=== PATIENT | male | born 1940 | race Caucasian/White ===

== ENCOUNTER → 2019-09-19 09:24 | Outpatient (BNVA) | payer MEDICARE, OTHER, SELFPAY | PROVIDERS: Family Provider Internal Medicine; PCP Internal Medicine; Referring Provider Internal Medicine; Visit Provider Internal Medicine Rheumatology | DX: M05.9 Rheumatoid arthritis with rheumatoid factor, unspecified (principal); Z79.52 Long term (current) use of systemic steroids; Z79.899 Other long term (current) drug therapy; M81.0 Age-related osteoporosis without current pathological fracture | CPT/HCPCS: 99214 ==

== ENCOUNTER 2019-10-12 12:46 | Outpatient (CLI) | payer MEDICARE, OTHER, SELFPAY ==
--- NOTE | 2019-10-12 13:17 | CT_ITS ---
WS: [id number] CT scan of the neck. Additional two-dimensional coronal and sagittal reconstruction was performed. 10/12/2019 Clinical Data: SDF, LOCALIZED SWELLING, MASS AND LUMP, NECK Comparison: None. DLP: 1802.[address] scans at [facility] use at least one of these dose optimization techniques: automat ed exposure control; mA and/or kV adjustment per patient size (includes targeted exams where dose is matched to clinical indication); or iterative reconstruction. Findings: There is a left neck mass which has mixed density. It measures 3.4 x 3.4 x 2.6 cm in AP, doran perior-inferior and transverse dimension respectively. There is calcification in the posterior aspect of this mass. No lymphadenopathy is noted. The salivary glands are unremarkable. There is no prevert ebral soft tissue swelling. The larynx is symmetric. The thyroid gland shows no abnormality. The floo r of the mouth and parapharyngeal spaces are normal. The oral cavity is unremarkable. The lung apices show localized anterior right pleural scarring. There are numerous emphysematous bleb s. The aortic arch shows calcification. There are calcified anterior and pretracheal lymph nodes. No prevertebral soft tissue swelling is noted. There is a compression fracture of the inferior aspect of the C4 vertebral body with loss of 50% of the anterior and central vertebral body height. There is s ubluxation of 0.5 cm of the posterior inferior aspect of the C4 vertebral body. There are compression fractures of the T4 and T5 vertebral bodies with loss of almost 100% of the T5 vertebral body height anteriorly and centrally. There is diffuse osteoporosis of the cervical spine. There is moderate ant erior and posterior osteoarthritic change from C4 through C7. The intraorbital contents, paranasal si nuses, sella turcica, and skull base show no abnormalities. The internal auditory canals and mastoid air cells are unremarkable. CT/CT neck wo con [id number] Impression: 1. 3.4 cm left neck mass which is at the level of the bifurcation of the left c arotid artery and this could represent an aneurysm. 2. Osteoarthritic change of the cervical spine with old compression fractures o f C4, T4 and T5. 3. Emphysematous changes of both lung apices.
== END 2019-10-12 12:47 | disposition home or self-care (01) ==
LOC: RADWPI 12:52
PROVIDERS: Family Provider Internal Medicine; PCP Internal Medicine; Visit Provider Internal Medicine
DX: R22.1 Localized swelling, mass and lump, neck (principal)
CPT/HCPCS: 70490

== ENCOUNTER 2019-10-17 09:40 | Outpatient (CLI) | payer MEDICARE, OTHER, SELFPAY ==
--- NOTE | 2019-10-17 10:15 | USCV_ITS ---
[place]on [place] Age: 79 Gender: M : 1940 Exam Date: 10/17/2019 10:04 Ordering Phys: Meng Wu MD Technologist: Gabby Mills Exam Location: [facility] [place]_ Indication: MASS SEEN LT CCA Risk Factors: Previous Vascular Surgery: Right Brachial BP: / Left Brachial BP: / Right Left Velocity (cm/s) Spectral Plaque Velocity (cm/s) Spectral Plaque Syst/Diast Broadening Syst/Diast Broadening 60.60/ 18.70 Prox CCA 77.20 / 15.40 55.10/ 15.40 Mid CCA 84.90 / 23.20 50.70/ 15.40 Distal CCA 87.10 / 20.90 47.40/ 13.20 Prox ICA / 56.20/ 22.10 Mid ICA 79.40 / 28.70 57.30/ 25.40 Distal ICA 112.50/ 28.70 71.70 ECA 46.30 1.04 ICA/CCA 1.32 Vertebral 40.80/ 13.20 cm/s 51.80/ 16.50 cm/s FINDINGS CT comparision 10/12/19 CONCLUSIONS 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 Increased attenuation on the CT suggests more recent hematoma. Aneurysm measures 2.6 x 3.0cm. This involves the ICA origin without significant stenosis. ECA is patent. Right ICA stenosis <50%. Moderate atheromatous plaque right carotid bulb/ICA. Normal antegrade Doppler flow noted in the right vertebral artery. Normal antegrade Doppler flow noted in the left vertebral artery. Adalberto Camargo MD (Electronically Signed) Final Date: 17 October 2019 10:50 S
== END 2019-10-17 09:41 | disposition home or self-care (01) ==
LOC: RAD 09:45
PROVIDERS: Family Provider Internal Medicine; PCP Internal Medicine; Visit Provider Internal Medicine
DX: R22.1 Localized swelling, mass and lump, neck (principal); I72.0 Aneurysm of carotid artery
CPT/HCPCS: 70547; 93880

== ENCOUNTER 2019-10-17 12:59 | Outpatient (CLI) | payer MEDICARE, OTHER, SELFPAY ==
--- NOTE | 2019-10-17 13:47 | MR_ITS ---
WS: [id number] MRA CAROTID ARTERIES HISTORY: Carotid aneurysm. COMPARISON: Carotid ultrasound 10/17/[address] 10/12/2019. TECHNIQUE: MRA is performed without contrast. MIP and source images are reviewed. Patient refused IV contrast. Lack of IV contrast significantly limits evaluation of the arteries. Bifurcations are intact. There i s very mild narrowing involving the proximal LEFT ICA. There is no extravasation from the lumen. Sue ry is patent. Both bifurcations are patent. The visualized extracranial vertebral arteries are also n ormal caliber. A few additional sequences were performed through the neck. The T2 sequence with fat sat demonstrates a cystic mass with variable density in the region of the LEFT carotid artery at the bifurcation. Thi s corresponds to the aneurysm previously described. Largest area of variable signal measures 2.6 cm. Scarring and biapical pleural thickening at the apices, RIGHT greater than LEFT. Notified Meng Wu MD at 10/17/2019 3:26 PM. MR/MR angio neck wo con [id number] IMPRESSION: 1. Significantly limited evaluation of the carotid arteries as the patient ref used IV contrast. 2. LEFT extracranial ICA is patent. 3. Again noted is the aneurysmal dilatation measuring up to 2.6 cm of the extr acranial LEFT carotid artery.
== END 2019-10-17 13:00 | disposition home or self-care (01) ==
LOC: RADWPI 13:04
PROVIDERS: Family Provider Internal Medicine; PCP Internal Medicine; Visit Provider Internal Medicine
DX: I72.0 Aneurysm of carotid artery (principal)
CPT/HCPCS: 70547

== ENCOUNTER 2019-11-06 08:31 | Outpatient (CLI) | payer MEDICARE, OTHER, SELFPAY ==
[2019-11-06 09:31] LABS: Blood Urea Nitrogen 24 mg/dL (8-23)
== END 2019-11-06 08:32 | disposition home or self-care (01) ==
PROVIDERS: Family Provider Internal Medicine; PCP Internal Medicine; Visit Provider Internal Medicine
DX: I72.0 Aneurysm of carotid artery (principal); I77.89 Other specified disorders of arteries and arterioles; M84.48XA Pathological fracture, other site, initial encounter for fracture
CPT/HCPCS: 36415; 82565; 84520

== ENCOUNTER 2019-11-07 16:47 | Observation (INO) | payer MEDICARE, OTHER, SELFPAY ==
[2019-11-07] MEDS: predniSONE 10 mg Tablet 50 MG PO ×2 (18:08→23:56)
[2019-11-07 18:12] VITALS: BP 125/78; PULSE 71; TEMP 37; O2SAT 93
[2019-11-07 19:44] VITALS: BP 111/74; PULSE 79; RESP 20; TEMP 36.6; O2SAT 93
[2019-11-07 23:54] VITALS: BP 103/67; PULSE 75; RESP 18; TEMP 36.4; O2SAT 95
[2019-11-08 04:00] VITALS: BP 109/71; PULSE 72; RESP 18; TEMP 36.7; O2SAT 100
[2019-11-08] MEDS: diphenhydrAMINE 50 mg Capsule PO (05:50)
[2019-11-08] MEDS: predniSONE 20 mg Tablet 50 MG PO (05:50)
[2019-11-08] MEDS: iodixanol 320 mg/mL 100mL Btl IV (07:00)
--- NOTE | 2019-11-08 07:00 | CT_ITS ---
WS: [id number] CT ANGIOGRAM CAROTID ARTERIES HISTORY: aneurysm, carotids TECHNIQUE: CT angiogram is performed of the carotid arteries. During arterial injection imaging is ob tained from the skull base to the aortic arch in 1.25 mm imaging. Coronal and sagittal reformats are submitted, MIP imaging also reviewed. Additional multiplanar reformats of the carotid arteries are doran bmitted. NASCET criteria utilized. All CT scans at [facility] use at least one of these d ose optimization techniques: automated exposure control; mA and/or kV adjustment per patient size (in cludes targeted exams where dose is matched to clinical indication); or iterative reconstruction. CONTRAST: Visipaque 320; 95 mL IV. Patient was premedicated due to contrast allergy. DLP: 1442.47 mGy.cm COMPARISON: Carotid ultrasound 10/17/2019 and MRI 10/17/2019. Right carotid: Common carotid artery: Tortuous common carotid artery arises normally from the innominate. Internal carotid artery: Calcified plaque at the bifurcation without significant stenosis. Plaque ext ends into the proximal ICA. External carotid artery: Patent. Left carotid: Common carotid artery: Common carotid artery arises from the base of the innominate. Scattered calcif ied plaque in the common carotid artery throughout its course to the bifurcation. Internal carotid artery: Abnormal appearance of the bifurcation of the common carotid artery. There i s a large soft tissue mass which contains arterial blood flow originating from the carotid bifurcatio n. The entire mass measures 3.1 cm in diameter by 2.8 x 3.6 cm. There is a large amount of luminal th rombus surrounding intensely enhancing center. Thrombus diameter measures up to 1.2 cm. The enhancing portion of the central aneurysm measures 2.3 x 1.6 x 2.0 cm. The LEFT ICA extends along the posterio r wall of this pseudoaneurysm and is patent. There is moderate narrowing of the proximal ICA approxim ately 50%. A patent external carotid artery not identified. External carotid artery: Not visualized. Right vertebral artery: Unremarkable. Left vertebral artery: LEFT vertebral artery arises directly from the arch with small amount of calci fied plaque at the origin. Subclavian arteries: Calcified plaque at the origins. No significant stenosis. Upper thorax: Severe centrilobular emphysema at the apex. There is a pleural obtuse angle area of thi ckening at the RIGHT apex measures 2.7 x 1.2 cm. No change since 10/12/2019. Thyroid gland: Very tiny RIGHT thyroid nodules. Osseous structures: Severe degenerative changes in the cervical spine most significant at C4-5. There is loss of disc space height with anterior wedging of C4. C4 retrolisthesis by 3.3 mm. Mild widening of the facet joints at the C4-5 level. An additional T4 and T5 vertebral body abnormalities. T5 em re vertebral plana. These changes are probably all related to old injury. Skull base: Mild atherosclerosis of the intracranial carotid arteries. The LEFT internal jugular vein is dilated with variable density. Jugular vein is being displaced late rally to the large pseudoaneurysm. There may be thrombosis or partial thrombus in the jugular vein. T he variable density could also be discussed secondary to slow flow. CT/CT angio neck [id number] IMPRESSION: 1. Large LEFT carotid bifurcation pseudoaneurysm. The entire aneurysm includin g the thrombus and central enhancement measures 3.1 x 2.8 x 3.6 cm. Aneurysm ex tends anterior, lateral and superior to the carotid bifurcation. 2. LEFT external carotid artery is not identified. 3. No significant stenosis RIGHT ICA. 4. LEFT jugular vein is enlarged with variable density and enhancement. May be due to slow flow or partial thrombosis due to the mass effect from the pseudoa neurysm. 5. Prior C4 fracture with posterior displacement of C4 and widening of the fac et joints. This fracture is at the same level as a pseudoaneurysm. Pseudoaneury sm may be posttraumatic from this prior injury. 6. Additional severe, chronic vertebral planar fractures at T5.
[2019-11-08 07:29] VITALS: BP 139/76; PULSE 67; RESP 18; TEMP 36.6; O2SAT 95
[2019-11-08 09:17] VITALS: BP 139/76; PULSE 67; RESP 18; TEMP 36.6; O2SAT 95
== END 2019-11-08 09:51 | disposition home or self-care (01) ==
PROVIDERS: Admitting Provider Internal Medicine; Family Provider Internal Medicine; PCP Internal Medicine; Visit Provider Internal Medicine
DX: I72.0 Aneurysm of carotid artery (principal); Z79.52 Long term (current) use of systemic steroids; M81.0 Age-related osteoporosis without current pathological fracture; M06.9 Rheumatoid arthritis, unspecified; Z87.891 Personal history of nicotine dependence
CPT/HCPCS: 70498; G0378; G0379; J7512; Q0163; Q9967

== ENCOUNTER 2019-11-20 20:05 | Inpatient (IN) | payer MEDICARE, OTHER, SELFPAY ==
[2019-11-16 09:39] VITALS: BMI 20.9
--- NOTE | 2019-11-16 09:57 | ECG_ITS ---
Measurements Intervals Filion Rate: 80 P: 13 VA: 160 QRS: -33 QRSD: 108 T: 10 QT: 371 QTc: 430 SINUS RHYTHM MARKED LEFT AXIS DEVIATION [QRS AXIS < -30] PATTERN CONSISTENT WITH PULMONARY DISEASE MODERATE VOLTAGE CRITERIA FOR LVH, CONSIDER NORMAL VARIANT [MEETS CRITERIA IN ONE OF: R(aVL), S(V1), R(V5), R(V5/V6)+S(V1)] No previous ECG available for comparison Electronically Signed On 11-16-2019 17:24:21 CDT by Omar Amaya M.D. [email or web address]
[2019-11-16 10:16] LABS: Basophils % 0.2 %; Eosinophils # 0.1 10^3/uL (0.0-0.8); Eosinophils % 0.5 %; Hematocrit 41.7 % (42.0-52.0); Hemoglobin 12.9 g/dL (11.7-16.6); Lymphocytes # 1.9 10^3/uL (0.8-4.8); Lymphocytes % 11.2 %; Mean Corpuscular HGB Conc 30.9 g/dL (30.0-36.0); Mean Corpuscular Hemoglobin 30.9 pg (28.0-34.0); Mean Platelet Volume 9.5 fL (7.4-10.4); Monocytes # 1.5 10^3/uL (0.2-0.9); Neutrophils # 11.9 10^3/uL (1.8-7.7); Nucleated Red Blood Cells % 0.1 %; Platelet Count 250 10^3/cmm (130-400); Red Blood Count 4.17 10^6/uL (4.1-5.3); Red Cell Distribution Width 16.1 % (12.1-15.1); White Blood Count 16.5 10^3/uL (4.0-10.0)
[2019-11-16 10:28] LABS: INR 0.85 (0.8-1.2)
--- NOTE | 2019-11-16 10:29 | ANES.PREANE2 ---
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 Proposed Procedure: Operation Date: 11/20/19 11:05 Proposed Procedures p Carotid Endarterectomy(Left) - Familia Greenfield MD Familial anesthetic complications: None Was Beta Jaquelin taken within 24 hours: N/A Social: Social History: No alcohol and No tobacco Exam: Pre-Anes Outpt Exam: alert, oriented x 3, clear to auscultation bilaterally and regular rate & rhythm Airway: Cervical ROM: WNL MP: 4 Dentition: False Additional comments: small mouth opening Pulmonary: Pulmonary: None reported CV/HEM: CV/HEM: None reported : : None reported Hepatic: Hepatic: None reported GI: GI: GERD Metabolic: Metabolic: None reported Musc/skel: Musc/skel: Neuropsych: Neuropsych: None reported Anesthetic Plan: ASA status: 3 Anesthesia: General Risk of > 500 ml blood loss (7ml/kg in children): No PFSH Anesthesia PFSH: Social History Smoking and tobacco status: former smoker Alcohol intake: former History of recent travel: No Data Anesthesia Other Labs: Laboratory Results - last 48 hr 11/16/19 09:30 PT 11.70 INR 0.85 Cardiac Studies: No Data to Display
[2019-11-16 10:31] LABS: Anion Gap 15.8 (5-19); Blood Urea Nitrogen 29 mg/dL (8-23); Calcium 9.7 mg/dL (8.5-10.5); Carbon Dioxide 23 mmol/L (22-29); Chloride 110 mmol/L (98-107); Glucose 94 mg/dL (65-115); Osmolality Calculated 297 mOsm/kg (285-295); Potassium 3.8 mmol/L (3.5-5.1); Sodium 145 mmol/L (136-145)
[2019-11-16 10:56] LABS: Bilirubin Urine Neg (NEGATIVE); Blood Urine 3+ (Negative); Glucose Urine UA Norm (Normal); Ketones Urine Negative (Negative); Nitrate Urine Negative (Negative); Protein Urine Neg (Negative); Urine Appearance Clear (CLEAR); Urine Color Yellow (Yellow)
[2019-11-16 10:57] LABS: Slide Review Slide Review Perform
[2019-11-16 10:57] LABS: Add Urine Culture? No; Add Urine Microscopic? YES; Bacteria Urine 1+; Leukocyte Esterase Urine Negative (Negative); Mucus Urine 2+; Squamous Epithelial Cell Urine 0-4 (0-5); Urobilinogen Urine Norm (Negative)
[2019-11-20] VITALS (17 sets, daily range): BP systolic 103–155; BP diastolic 54–97; PULSE 68–105; RESP 17–25; TEMP 36.3–36.4; O2SAT 92–100
[2019-11-20] MEDS: sodium chloride 0.9% 1,000 ML 30 ML IV (11:43)
[2019-11-20] MEDS: midazolam 1 mg/mL INJ 2 mL 2 MG IVP (12:12)
--- NOTE | 2019-11-20 12:43 | ANES.PREANE2 ---
Pre-Anesthetic Assessment Pre-Anesthetic Assessment: Height/Weight: Height 1.68 m Weight 58.967 kg Temp Pulse Resp BP Pulse Ox 97.5 F L 72 20 H 155/97 98 11/20/19 09:27 11/20/19 09:27 11/20/19 09:27 11/20/19 09:27 11/20/19 09:27 Preop Diagnosis: Left internal carotid artery pseudoaneurysm Proposed Procedure: Operation Date: 11/20/19 11:20 Proposed Procedures p Carotid Endarterectomy(Left) - Familia Greenfield MD Last intake: Intake Last Liquid Date 11/19/19 Last Liquid Time 20:00 Last Solid Date 11/19/19 Last Solid Time 20:00 Social: Packs per day: 1 Pack years: 50+ Comment: '98 Exam: Pre-Anes Outpt Exam: alert, oriented x 3, clear to auscultation bilaterally and regular rate & rhythm Musc/skel: Musc/skel: Lower Back Pain Comments: bilateral radiculopathy Anesthetic Plan: ASA status: 2 Anesthesia: General Meds/Allergies Current Medications: Current Medications Generic Name Dose Route Start Last Admin Trade Name Freq PRN Reason Stop Dose Admin Sodium Chloride 1,000 mls @ 30 ml s/hr 11/20/19 09:15 11/20/19 11:43 Sodium Chloride 0.9% IV 11/21/19 09:14 30 mls/hr .Q24H BYRON Administration PFSH Anesthesia PFSH: Social History Smoking and tobacco status: former smoker Alcohol intake: former History of recent travel: No Data Anesthesia CBC & Chem 7: 11/16/19 09:30 11/16/19 09:30 Other Labs: Laboratory Results - last 48 hr 11/16/19 09:30 Blood Type O Positive Rho(D) Type Positive Antibody Screen Negative Crossmatch See Detail Cardiac Studies: No Data to Display
[2019-11-20] MEDS: fentaNYL 50 mcg/mL INJ 2mL IVP ×2 (12:47→20:23)
[2019-11-20] MEDS: midazolam 1 mg/mL INJ 5 ML 2 MG IV (14:35)
--- NOTE | 2019-11-20 15:27 | ANES.PROC ---
Anesthesia Procedures Procedure/Date: 11/20/19 Arterial Line: Time Out Performed: Yes Consent: requested by attending/covering physician and risks and benefits reviewed Size (Gauge): 20 Technique Used: guide wire technique Patient Tolerated Procedure: well and no complications Site: right and radial
[2019-11-20] MEDS: heparin, porcine 1,000 unit/mL INJ 10 mL 10000 UNIT IRRIGATION (16:01)
[2019-11-20] MEDS: vancomycin 1,000 MG SDV 1000 MG IRRIGATION (16:02)
--- NOTE | 2019-11-20 20:28 | PM.OP ---
Operative Report Date of procedure: November 20, 2019 Pre-op Diagnosis: Left internal carotid artery pseudoaneurysm Post-op diagnosis: same Procedure Done: Left neck exploration with resection of left carotid artery pseudoaneurysm, endarterectomy, and Hemashield patch angioplasty Implants: Hemashield patch Specimens removed/disposition: Portion of wall from left carotid pseudoaneurysm, thrombus, and endarterectomized plaque Surgeon: Familia Greenfield Anesthesia: General Estimated blood loss (mL): 1,500 Condition: stable Disposition: ICU Brief History: 79-year-old gentleman referred to our service with a large bulge in his left neck which was pulsatile. This was thought to be an aneurysm by review by carotid duplex. Subsequent CTA revealed this to be a large pseudoaneurysm which happens to be at the level of an old C4 fracture. Patient cannot recall a particular injury. He has substantial rheumatoid arthritis with major joint deformities. Because of the large nature of the pseudoaneurysm, repair was recommended. We did discuss options considering open repair versus referral for stenting. After consultation upon family members, he elected to proceed with open repair. Details the risk of procedure carefully and frankly discussed including increased risk for bleeding, neurologic injury, voice or swallowing difficulties. A proper consents have been reviewed and signed. Procedure: Mr. Lund was taken to the operating room theater carefully and positioned on the OR table where he underwent general endotracheal anesthesia after appropriate invasive lines were placed including a right radial arterial line. He was carefully positioned and secured. Due to his substantial arthritis, there was little mobility for rotation of his neck. Following this, his entire left neck and chest was sterilely prepped and draped. The table was rotated markedly to the right side to allow for adequate exposure. The large pulsatile pseudoaneurysm was easily visible on the neck. A long generous incision was made from above the angle of mandible on the anterior border the sternocleidomastoid muscle down toward the sternal notch. Dissection was continued through the soft tissues utilizing cautery and down through the platysma which was very thin. Overall, his tissue quality was relatively poor related to his age and long steroid use. I elected to proceed approximately first to dissected out the common carotid artery which was done and controlled with a male tape. We did continue dissection up over the large pseudoaneurysm and then more distally past the angle of the mandible into we were able to identify the left internal carotid artery above the level of pathology. Once this was done the patient was heparinized with 10,000 units. Systolic blood pressure was raised to 160 systolic. We then initially placed on the vascular clamp on the internal carotid artery and a large padded vascular clamp on the common carotid artery. Bihemispheric oximetry monitoring was performed with only a very modest drop of a few points on the left side with clamping. I then began dissecting this large pseudoaneurysm from overlying soft tissue the facial vein was splayed over the vessel as well as portion of the left internal jugular vein along the lateral wall which was difficult to dissected free. This required substantial use of ligature and clips due to numerous large engorged venous branches. There was market bleeding near this. Which did require packed RBC transfusion. Ultimately, we were able to reach the pseudoaneurysm wall which was opened that large thrombus was removed. There was substantial backbleeding from what appeared to be the orifice to the external carotid artery, which was not visualized on CT scan. I elected to oversew this vessel at the ostium. We then performed backbleeding of the internal carotid artery. Flow was relatively brisk. I did perform endarterectomy at the base of this large pseudoaneurysm. Due to the inherent left internal jugular vein to the lateral wall of the pseudoaneurysm, I elected not to try to resect this portion of the pseudoaneurysm. After completion of endarterectomy and flushing with heparinized saline solution, we then brought Hemashield patch into the field. It was sewn in position utilizing running 5-0 Prolene suture reestablishing communication between the common carotid artery and the internal carotid artery. There was a brisk rise in oximetry of the left side of 5 points with release of the clamps after de-airing. After 5 minutes, heparin reversed with protamine with normalization of the ACT. We did perform meticulous inspection utilizing suture and cautery and vascular clips as required to control hemostasis, with mostly bleeding actually coming from venous origin. Once we were satisfied with hemostasis, a DAVE drain was placed connected to bulb suction. Wound was irrigated with antibiotic solution. Hemostasis confirmed. We then closed the platysma layer with running 2-0 Vicryl suture along with closure of the subcutaneous tissue with similar suture. Skin was reapproximated in a subcuticular manner with 3-0 Monocryl suture. Mr. Lund was then returned supine position and awakened and extubated. He was able to move all extremities spontaneously to command. He was then transported to the ICU in stable condition. I did adolescent counselor with his and son at completion of the procedure.
[2019-11-20] MEDS: morphine 4 mg/mL SDV 1 mL 2 MG IVP (20:45)
--- NOTE | 2019-11-20 21:00 | PC.NURSE ---
DR CORONA AT BEDSIDE. DR GAVE VERBAL ORDER TO START NITRO IF NEEDED TO KEEP BP BELOW 140 SYS. ALSO IF PT DOES NOT RELAX WITH PAIN MEDS GIVEN, VERBAL ORDER TO GIVE VERSED IF NEEDED.
[2019-11-20] MEDS: ketorolac 30 mg/mL INJ IVP (21:04)
[2019-11-20] MEDS: lactated ringers 1,000 ML 75 ML IV (21:26)
[2019-11-20] MEDS: ceFAZolin 1,000 MG in sodium chloride 0.9% (plus) 50 ML 100 MG IV (21:26)
[2019-11-20] MEDS: lactobacillus 1 Tablet 1 TAB PO (22:39)
[2019-11-21] VITALS (33 sets, daily range): BP systolic 76–121; BP diastolic 47–94; PULSE 76–115; RESP 10–32; TEMP 36.7–37.4; O2SAT 90–100
[2019-11-21 04:18] LABS: Basophils # 0.1 10^3/uL (0.0-0.1); Basophils % 0.4 %; Eosinophils # 0.1 10^3/uL (0.0-0.8); Eosinophils % 0.6 %; Hematocrit 39.8 % (42.0-52.0); Hemoglobin 12.9 g/dL (11.7-16.6); Lymphocytes % 10.9 %; Mean Corpuscular HGB Conc 32.4 g/dL (30.0-36.0); Mean Corpuscular Hemoglobin 29.7 pg (28.0-34.0); Mean Corpuscular Volume 91.7 fL (80-94); Monocytes # 1.4 10^3/uL (0.2-0.9); Monocytes % 7.8 %; Neutrophils # 13.8 10^3/uL (1.8-7.7); Neutrophils % 75.4 %; Nucleated Red Blood Cells % 0 %; Platelet Count 130 10^3/cmm (130-400); Red Blood Count 4.34 10^6/uL (4.1-5.3); Red Cell Distribution Width 19.2 % (12.1-15.1); White Blood Count 18.3 10^3/uL (4.0-10.0)
[2019-11-21 04:36] LABS: Blood Urea Nitrogen 19 mg/dL (8-23); Calcium 8.4 mg/dL (8.5-10.5); Chloride 114 mmol/L (98-107); Glucose 84 mg/dL (65-115); Osmolality Calculated 298 mOsm/kg (285-295); Potassium 4.5 mmol/L (3.5-5.1); Sodium 146 mmol/L (136-145)
[2019-11-21] MEDS: ceFAZolin 1,000 MG in sodium chloride 0.9% (plus) 50 ML 100 MG IV ×2 (05:10→12:01)
[2019-11-21 05:52] LABS: Anion Gap 16.5 (5-19); Carbon Dioxide 20 mmol/L (22-29)
--- NOTE | 2019-11-21 06:10 | PC.NURSE ---
SHIFT SUMMARY PT HAS BEEN ALERT AND ORIENTATED. PT IV REMAINS PATENT. PT ART LINE REMAINS PATENT. PT HAS HAD ADEQUATE URINE OUTPUT. PT LUNGS REMAIN DIMINISHED. PT HAS BEEN ABLE TO DRINK AND SWALLOW PILLS NO PROBLEM. PT HAS BEEN AFEBRILE. PT PAIN HAS BEEN CONTROLLED SINCE POST OP PERIOD. PT HAS NOT REQUIRED ANY MORE PAIN MEDS THUS FAR IN SHIFT.
--- NOTE | 2019-11-21 07:12 | P.PN_ITS ---
Subjective Subjective: Interval history: Postop day #1 status post repair of a left carotid pseudoaneurysm. He has had a uneventful night. Remains neurologically intact. DAVE drain output 30 cc overnight. Minimal left neck swelling. While he reports that he did not, nurses state that he did sleep fairly well last night. Taking liquids well. Vitals/I&O/Wt Last Vital Signs Temp 99.3 F 11/21/19 05:18 Pulse 98 11/21/19 05:00 Resp 10 L 11/21/19 05:00 BP 98/63 11/21/19 05:00 Pulse Ox 95 11/21/19 05:00 11/20/19 11/21/19 11/21/19 22:59 06:59 14:59 Intake Total 2100 / 2100 Output Total 2700 / 2700 505 / 3205 Balance -600 / -600 -505 / -1105 Weight last 48 hrs Weight 150 lb 11.2 oz Physical Exam Const: COMMON NORMALS: oriented x3 Neuro: COMMON NORMALS: oriented x3, no focal motor deficits (Tongue midline with protrusion) and no sensory deficits noted Urinary Catheter Management^: Natarajan: Cath Placed During This Visit: yes Reason for Continuing Indwelling Catheter: Accurate Measurement of Urinary Output in Critically Ill Patients Urinary Catheter Date of Insertion: 11/20/19 Urinary Catheter Time of Insertion: 15:30 Data : 11/21/19 03:45 11/21/19 03:45 A&P Assessment and plan (1) Pseudoaneurysm of carotid artery: Postop day #1 status post repair of left carotid pseudoaneurysm. Initiate aspirin today Will continue current convalescence and plan to DC drain later today. Status: Acute Code(s): I72.0 - Aneurysm of carotid artery Attestations Medical Necessity Statement*: Postop better 1 status post repair of left carotid pseudoaneurysm Procedures Arterial Line Size (Gauge): 20 Coding Level of Care Code Acute Telephone Interviewer for Frankie Stewart Diagnoses Pseudoaneurysm of carotid artery I72.0
[2019-11-21] MEDS: oxyCODONE-APAP 10-325 mg Tablet 1 TAB PO ×2 (07:46→14:50)
--- NOTE | 2019-11-21 07:54 | PC.NURSE ---
Removed right radial arterial line, catheter tip intact. Applied pressure for 5 minutes, no hematoma or bleeding noted. Applied coban wrap to area.
[2019-11-21] MEDS: mirtazapine 30 mg Tablet PO (08:34)
[2019-11-21] MEDS: hydroxychloroquine 200 mg Tablet PO ×2 (08:34→17:20)
[2019-11-21] MEDS: pantoprazole DR 40 mg Tablet PO (08:34)
[2019-11-21] MEDS: lactobacillus 1 Tablet 1 TAB PO ×2 (08:34→20:13)
[2019-11-21] MEDS: predniSONE 10 mg Tablet 30 MG PO (08:34)
[2019-11-21] MEDS: duloxetine 60 mg Capsule PO (08:35)
[2019-11-21] MEDS: aspirin 81 mg Chew Tablet PO (08:35)
[2019-11-21] MEDS: phenol oral Spray 177 mL 5 SPRAY MUCOUS MEM (12:00)
[2019-11-21] MEDS: lactated ringers 1,000 ML 75 ML IV (12:00)
--- NOTE | 2019-11-21 21:37 | PC.NURSE ---
DR LIBERTY CORONA WAS CALLED DUE TO HYPOTENSION WITH REYNOLDS. DR CORONA GAVE ORDER TO INCREASE FLUIDS TOO 100MLS/HR AND PUT ORDER IN FOR AM LABS. NO BLEEDING WAS NOTED ON PT INCISION.
[2019-11-22] VITALS (14 sets, daily range): BP systolic 94–141; BP diastolic 55–83; PULSE 66–94; RESP 10–27; TEMP 36.8–36.9; O2SAT 91–99
[2019-11-22] MEDS: oxyCODONE-APAP 10-325 mg Tablet 1 TAB PO ×2 (01:54→10:02)
[2019-11-22 04:51] LABS: Eosinophils # 0.1 10^3/uL (0.0-0.8); Eosinophils % 0.4 %; Hematocrit 30.7 % (42.0-52.0); Hemoglobin 9.9 g/dL (11.7-16.6); Lymphocytes % 8.9 %; Mean Corpuscular HGB Conc 32.2 g/dL (30.0-36.0); Mean Corpuscular Hemoglobin 30.2 pg (28.0-34.0); Mean Corpuscular Volume 93.6 fL (80-94); Mean Platelet Volume 9.6 fL (7.4-10.4); Monocytes # 0.9 10^3/uL (0.2-0.9); Monocytes % 7.9 %; Neutrophils # 9.3 10^3/uL (1.8-7.7); Neutrophils % 80.1 %; Nucleated Red Blood Cells % 0 %; Platelet Count 117 10^3/cmm (130-400); Red Blood Count 3.28 10^6/uL (4.1-5.3); Red Cell Distribution Width 17.7 % (12.1-15.1); White Blood Count 11.6 10^3/uL (4.0-10.0)
[2019-11-22] MEDS: lactated ringers 1,000 ML 100 ML IV (04:58)
[2019-11-22 05:18] LABS: Alanine Aminotransferase 6 U/L (0-41); Albumin Level 2.5 g/dL (3.5-5.2); Alkaline Phosphatase 57 IU/L (40-130); Anion Gap 8.5 (5-19); Aspartate Amino Transferase 19 U/L (0-40); Blood Urea Nitrogen 19 mg/dL (8-23); Calcium 8.6 mg/dL (8.5-10.5); Carbon Dioxide 29 mmol/L (22-29); Chloride 110 mmol/L (98-107); Glucose 94 mg/dL (65-115); Osmolality Calculated 292 mOsm/kg (285-295); Potassium 4.5 mmol/L (3.5-5.1); Sodium 143 mmol/L (136-145); Total Bilirubin 0.5 mg/dL (0.15-1.2); Total Protein 4.5 g/dL (6.6-8.7)
--- NOTE | 2019-11-22 06:00 | PC.NURSE ---
DR NOTIFICATION PT WAS BLADDER SCANNED, GREATER THAN 350MLS NOTED. GAVE ORDER FOR SHANKAR TO BE PLACED. WAS ALSO NOTIFIED OF DROP IN HgB. NO OTHER NEW ORDERS
--- NOTE | 2019-11-22 06:04 | PC.NURSE ---
SHIFT SUMMARY PT HAS REMAINED ALERT AND ORIENTATED. PT LUNGS REMAIN CLEAR. PT IV REMAINS PATENT. PT BLOOD PRESSURE HAS BEEN ABOVE 100 SYS SINCE FLUIDS WERE INCREASED TO 100ML/HR. NO COMPLAINTS OF PAIN IN NECK, 15ML IN DAVE DRAIN. PT COMPLAINED OF RESTLESS LEGS HURTING AND WAS GIVEN PAIN PILL FOR THAT.
--- NOTE | 2019-11-22 06:42 | PC.NURSE ---
DR TERESO CORONA AT BEDSIDE, TOOK OUT DAVE DRAIN. PT TOLERATED WELL.
--- NOTE | 2019-11-22 06:44 | P.PN_ITS ---
Subjective Subjective: Interval history: Postop day #2 status post repair of left carotid artery pseudoaneurysm. He had a good night. Joint discomfort much improved. Low DAVE drain output. Neurologically intact. Voice quality is improved. Tolerating liquids well. He did have some urinary retention which required placement of a Natarajan catheter this morning. I discontinued his DAVE drain. Inc ision clean and dry. Vitals/I&O/Wt Last Vital Signs Temp 98.5 F 11/22/19 02:00 Pulse 69 11/22/19 06:00 Resp 15 11/22/19 06:00 BP 95/63 11/22/19 06:00 Pulse Ox 98 11/22/19 06:00 11/21/19 11/21/19 11/22/19 14:59 22:59 06:59 Intake Total 1460 / 1460 120 / 1580 Output Total 300 / 300 550 / 850 Balance 1460 / 1460 -180 / 1280 -550 / 730 Weight last 48 hrs Weight 150 lb 11.2 oz Physical Exam Const: COMMON NORMALS: oriented x3 Neck/C-Spine: COMMON NORMALS: no JVD and no carotid bruits GENERAL: Yes trachea midline and No anterior neck swelling OTHER: Incision clean, dry, and intact Resp: COMMON NORMALS: normal respiratory effort and clear to auscultation bilaterally AUSCULTATION: clear to auscultation bilaterally Cardio: COMMON NORMALS: no JVD Neuro: COMMON NORMALS: oriented x3 and no focal motor deficits Urinary Catheter Management^: Natarajan: Cath Placed During This Visit: yes Reason for Continuing Indwelling Catheter: Accurate Measurement of Urinary Ou tput in Critically Ill Patients Urinary Catheter Date of Insertion: 11/22/19 Urinary Catheter Time of Insertion: 06:00 Data : 11/22/19 04:32 11/22/19 04:32 A&P Assessment and plan (1) Pseudoaneurysm of carotid artery: Postop day #2. Doing well except did have urinary retention requiring Natarajan catheter. I will discuss with later this morning when she arrives though I would recommend discharge to home with Natarajan catheter and follow-up. Status: Acute Code(s): I72.0 - Aneurysm of carotid artery Attestations Medical Necessity Statement*: Postop repair left carotid pseudoaneurysm Time Spent in Patient Care: 16 - 35 minutes Procedures Arterial Line Size (Gauge): 20 Coding Level of Care Code Acute Engineering Secretary for Chg Fwd Diagnoses Pseudoaneurysm of carotid artery I72.0
[2019-11-22] MEDS: ketorolac 30 mg/mL INJ IVP (07:24)
[2019-11-22] MEDS: hydroxychloroquine 200 mg Tablet PO (08:04)
[2019-11-22] MEDS: aspirin 81 mg Chew Tablet PO (08:05)
[2019-11-22] MEDS: predniSONE 10 mg Tablet 30 MG PO (08:05)
[2019-11-22] MEDS: pantoprazole DR 40 mg Tablet PO (08:05)
[2019-11-22] MEDS: mirtazapine 30 mg Tablet PO (08:05)
[2019-11-22] MEDS: duloxetine 60 mg Capsule PO (08:05)
[2019-11-22] MEDS: lactobacillus 1 Tablet 1 TAB PO (08:05)
--- NOTE | 2019-11-22 10:11 | PM.DCS ---
Discharge Providers Date of Admission: 11/20/19 20:05 Date of Discharge: November 22, 2019 Attending Provider at Admission: Familia Greenfield MD Attending Provider at Discharge: Familia Greenfield MD Primary Care Provider: Meng Wu MD Diagnoses at Discharge Discharge Diagnosis (1) Pseudoaneurysm of carotid artery: Status: Acute Hospital Course Hospital Course: Mr. 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 Exact etiology is unknown though this was felt to possibly be trauma related. He does have an old C4 fracture at this level. He underwent elective repair on November 19. He convalesced in the ICU where he remained neurologically intact. Due to the extensive dissection required, his DAVE drain was left in for a second day, with continued low output and then removed. He is tolerating oral fairly well though he does have a sore throat. Voice quality has been hoarse but has improved substantially over the past 24 hours. This will need to be monitored. Due to his of marked arthritic changes, he is a fall risk and therefore I recommended home health services. He will be discharged home today in stable condition. He will be scheduled for follow-up in my clinic in 1 week. Physical Exam Const: COMMON NORMALS: oriented x3 Neck/C-Spine: OTHER: Neck incision is clean and dry. There is minimal swelling in the area. Neuro: COMMON NORMALS: oriented x3, no focal motor deficits and no sensory deficits noted Urinary Catheter Management^: Natarajan: Cath Placed During This Visit: yes Reason for Continuing Indwelling Catheter: Accurate Measurement of Urinary Output in Critically Ill Patients Urinary Catheter Date of Insertion: 11/22/19 Urinary Catheter Time of Insertion: 06:00 Discharge Data Data Completed and Pending: Pending at discharge Category Date Time Status Leukocyte Reduced RBC Routine Lab 11/16/19 09:30 Results Retype for XM Rou tammy Lab 11/16/19 09:30 Results Type and Screen - Cardiac Routine Lab 11/16/19 09:30 Results Pathology: Surgic al [PTH] Routine Pth 11/20/19 19:11 Received Labs from last 24 hours 11/22/19 11/22/19 11/16/19 04:32 04:32 09:30 WBC 11.6 H RBC 3.28 L Hgb 9.9 L Hct 30.7 L MCV 93.6 MCH 30.2 MCHC 32.2 RDW 17.7 H Plt Count 117 L MPV 9.6 Neut % (Auto) 80.1 Lymph % (Auto) 8.9 Finney % (Auto) 7.9 Eos % (Auto) 0.4 Baso % (Auto) 0.0 Neut # (Auto) 9.3 H Lymph # (Auto) 1.0 Finney # (Auto) 0.9 Eos # (Auto) 0.1 Baso # (Auto) 0.0 Nucleated RBC % (a uto) 0 Nucleated RBCs # 0.0 Sodium 143 Potassium 4.5 Chloride 110 H Carbon Dioxide 29 Anion Gap 8.5 BUN 19 Creatinine 0.9 Glucose 94 Calculated Osmolal ity 292 Calcium 8.6 Total Bilirubin 0.5 AST 19 ALT 6 Alkaline Phosphata se 57 Total Protein 4.5 L Albumin 2.5 L Globulin 2.0 Blood Type O Positive Rho(D) Type Positive Antibody Screen Negative Crossmatch See Detail Vitals: Last Vital Signs Temp 98.5 F 11/22/19 02:00 Pulse 82 11/22/19 10:05 Resp 22 H 11/22/19 10:05 BP 120/69 11/22/19 10:05 Pulse Ox 93 11/22/19 10:05 Discharge Plan Discharge Patient Disposition: Home Health Service Condition: Stable Prescriptions: Continued ethambutol 400 mg tablet 800 mg PO QDAY Qty: 60 RF: 6 hydroxychloroquine 200 mg tablet 200 mg PO BID RF: 0 alendronate [Fosamax] 70 mg tablet 70 mg PO .once weekly RF: 0 mirtazapine [Remeron] 30 mg tablet 30 mg PO DAILY RF: 0 ondansetron HCl [Zofran] 4 mg tablet 4 mg PO Q6H PRN (Reason: Nausea) RF: 0 diphenoxylate-atropine [Lomotil] 2.5-0.025 mg tablet 1 tab PO DAILY PRN (Reason: Diarrhea) RF: 0 polyethylene glycol 3350 [Miralax] 17 gram/dose powder 17 gm PO BID PRN (Reason: Constipation) RF: 0 Flintstones Complete Tablet,Chewable 1 tab PO DAILY RF: 0 Lactobacillus acidophilus [Acidophilus] Capsule 100 mmu cells PO TID RF: 0 prednisone 20 mg tablet 30 mg PO DAILY Qty: 90 RF: 3 oxycodone-acetaminophen 10-325 mg tablet 1 tab PO TID PRN (Reason: pain) 30 Days Qty: 90 RF: 0 pantoprazole 40 mg tablet,delayed release (DR/EC) 40 mg PO BID Qty: 60 RF: 3 duloxetine 60 mg capsule,delayed release(DR/EC) 60 mg PO DAILY Qty: 30 RF: 3 aspirin [Aspirin Childrens] 81 mg Tablet,Chewable 81 mg PO DAILY RF: 0 Discharge Orders: Discharge Order (Routine); Ordered 11/22/19 Ordered By: Familia Greenfield Referrals: Familia Greenfield MD [Physician] - 1 week Discharge Diet: Advance as tolerated Discharge Activity: Resume usual activity Activity Restrictions/Additional Instructions: May change neck bandage tomorrow and daily if needed. May begin showers tomorrow. No swimming or tub baths x2 weeks. Report any swelling, redness or substantial drainage. Discharge Attestations Time Spent in Discharge Care*: less than 30 min Specific Discharge Activities: Specific discharge activities: educating patient, educating and/or supporting family/caregiver and discussing with geriatric case manager/social workers/dc planners Status at Discharge: Cognitive status at discharge: cognitively intact, Behavioral status at discharge: cooperative, Functional status at discharge: uses cane/walker Overall status at discharge: patient is progressing back to baseline Quality Metrics Clinical Quality Measures During this hospital stay, did patient experience: None Coding Level of Care Code Acute Ticket Maker for Frankie Stewart Diagnoses Pseudoaneurysm of carotid artery I72.0
--- NOTE | 2019-11-22 12:45 | PC.NURSE ---
DISCHARGE Appointment made. Discharge instructions given, as well as incision care information provided and verbalized understanding with patient and . Patient escorted out with all belongings. IV removed and covered with 2x2 and coban. Dressing on left neck changed before discharge.
--- NOTE | 2019-11-23 15:45 | W.PM.OPSUD ---
Surgery/Procedure H&P Update DATE OF PROCEDURE: November 20, 2019 DATE H&P PERFORMED: 11/09/19 H&P UPDATE INFORMATION: I have reviewed H&P completed within last 30 days, I have examined patient prior to procedure and No changes to prior documentation PREOP DIAGNOSIS: Left internal carotid artery pseudoaneurysm PRIMARY INDICATION FOR PROCEDURE: Left carotid pseudoaneurysm Details the risk of the procedure again carefully discussed. Uniqueness of this lesion was reviewed. Increased risk related to his age and other comorbidities including steroid use were frankly discussed. He and his wish to proceed. PLANNED PROCEDURE: Operation Date: 11/20/19 11:20 Proposed Procedures p Carotid Endarterectomy(Left) - Familia Greenfield MD
== END 2019-11-22 12:38 | disposition home health service (06) | DRG 272 ==
LOC: ICU 20:17
PROVIDERS: Admitting Provider Thoracic Surgery (Cardiothoracic Vascular Surgery); Family Provider Internal Medicine; PCP Internal Medicine; Visit Provider Thoracic Surgery (Cardiothoracic Vascular Surgery)
PROC: 03CK0ZZ Extirpation of Matter from Right Internal Carotid Artery, Open Approach (ICD-10-PCS; CPT 35301; principal; 2019-11-20 11:20)
DX: I72.0 Aneurysm of carotid artery (principal); K21.9 Gastro-esophageal reflux disease without esophagitis; M06.9 Rheumatoid arthritis, unspecified; M54.10 Radiculopathy, site unspecified; Z79.82 Long term (current) use of aspirin; Z79.83 Long term (current) use of bisphosphonates
CPT/HCPCS: 12345; 36415; 51702; 80048; 80053; 81001; 85025; 85347; 85610; 86850; 86900; 86920; 88304; 93005; 96374; 96375; J0330; J0690; J1644; J1885; J2001; J2250; J2270; J2370; J2405; J2704; J2720; J3010; J3370; J3490; J7030; J7512; P9016

== ENCOUNTER 2019-12-27 07:58 | Outpatient (CLI) | payer MEDICARE, OTHER, SELFPAY ==
--- NOTE | 2019-12-27 08:00 | USCV_ITS ---
[place] Age: 79 Gender: M : 1940 Exam Date: 12/27/2019 08:18 Ordering Phys: Familia Greenfield MD (Andy) ([email or web address] [place] Technologist: Sharon Caballero [place] [facility] [place]: Aneurysum of Left Carotid artery Risk Factors: Previous Vascular Surgery: Right Brachial BP: / Left Brachial BP: / Right Left Velocity (cm/s) Spectral Plaque Velocity (cm/s) Spectral Plaque Syst/Diast Broadening Syst/Diast Broadening 67.60/ 19.40 Prox CCA 50.70 / 17.10 64.50/ 17.90 Mid CCA 57.10 / 19.20 47.40/ 15.50 Distal CCA 37.90 / 12.80 62.10/ 21.00 Prox ICA 69.10 / 23.30 64.50/ 21.00 Mid ICA 95.70 / 35.00 66.80/ 24.90 Distal ICA 79.20 / 29.20 80.80 ECA 69.10 1.04 ICA/CCA 1.67 Antegrade Vertebral Antegrade 50.50/ 17.10 cm/s 38.10/ 11.20 cm/s Tri Subclavian Tri 90.90 133.2 0 FINDINGS Comparison:. 10/17/19 S/P resection of the large left carotid bifurcation pseudoaneurysm since the prior study. Mild anterior soft tissue thickening at the site of the surgical repair. Good flow in the left ICA and ECA with moderate plaque. No stenosis right ICA with stable plaque burden. Bilateral antegrade vertebral arteries. CONCLUSIONS S/P resection of the left carotid bifurcation aneurysm with good flow in the ICA and ECA. Mild wall thickening anterior bifurcation at the repair site, no recurrent or persistent aneurysm. Dr. Jesika Cates DO (Electronically Signed) Final Date: 27 December 2019 09:19 S
== END 2019-12-27 07:59 | disposition home or self-care (01) ==
LOC: RADWPI 08:02
PROVIDERS: Family Provider Internal Medicine; PCP Internal Medicine; Visit Provider Thoracic Surgery (Cardiothoracic Vascular Surgery)
DX: Z48.89 Encounter for other specified surgical aftercare (principal); I72.0 Aneurysm of carotid artery
CPT/HCPCS: 93880

== ENCOUNTER 2020-01-08 10:32 | Outpatient (CLI) | payer MEDICARE, OTHER, SELFPAY ==
--- NOTE | 2020-01-08 10:44 | FL_ITS ---
WS: [id number] FL barium swallow modifd [id number] REASON FOR EXAM: Other dysphagia FLUOROSCOPY TIME: 5.0 minutes FINDINGS: Postsurgical loss of voice density and swallowing. Fluoroscopy was performed for speech pathology please see their workup for details. FL/FL barium swallow modifd [id number] IMPRESSION: Fluoroscopy for speech therapy evaluation.
== END 2020-01-08 10:33 | disposition home or self-care (01) ==
LOC: RAD 10:38
PROVIDERS: Family Provider Internal Medicine; PCP Internal Medicine; Visit Provider Specialist
DX: R13.19 Other dysphagia (principal)
CPT/HCPCS: 74230; 92611

== ENCOUNTER 2020-01-30 07:56 | Day surgery (SDC) | payer MEDICARE, OTHER, SELFPAY ==
[2020-01-26 15:31] VITALS: BMI 18.8
[2020-01-30] VITALS (8 sets, daily range): BP systolic 144–162; BP diastolic 82–98; PULSE 79–103; RESP 18–22; TEMP 36.1–36.4; O2SAT 96–99
[2020-01-30] MEDS: sodium chloride 0.9% 1,000 ML 30 ML IV (08:41)
--- NOTE | 2020-01-30 08:46 | ANES.PREANE2 ---
Pre-Anesthetic Assessment Pre-Anesthetic Assessment: Height/Weight: Height 1.68 m Weight 53.07 kg Temp Pulse Resp BP Pulse Ox 97 F L 88 18 151/88 96 01/30/20 08:19 01/30/20 08:19 01/30/20 08:19 01/30/20 08:19 01/30/20 08:19 Preop Diagnosis: Left internal carotid artery pseudoaneurysm Proposed Procedure: Operation Date: 01/30/20 09:20 Proposed Procedures p Direct Laryngoscopy(Not Applicable) - Manas Malcolm MD s True Vocal Cord Injection(Not Applicable) - Manas Malcolm MD Last intake: Intake Last Liquid Date 01/29/20 Last Liquid Time 20:00 Last Solid Date 01/29/20 Last Solid Time 20:00 Social: Social History: Tobacco (quit) and No alcohol Exam: Pre-Anes Outpt Exam: alert, oriented x 3, clear to auscultation bilaterally and regular rate & rhythm Airway: Submandibular: WNL Cervical ROM: Other (limited, RA) MP: 3 Dentition: False (upper and lower) History/ROS: No significant history except as noted Pulmonary: Pulmonary: [place] CV/HEM: CV/HEM: None reported : : None reported Hepatic: Hepatic: None reported GI: GI: GERD Musc/skel: Musc/skel: RA (severe) and Weakness Neuropsych: Neuropsych: None reported Anesthetic Plan: ASA status: 3 Anesthesia: Anesthesia Evaluation and General Risk of > 500 ml blood loss (7ml/kg in children): No Meds/Allergies Current Medications: Current Medications Generic Name Dose Route Start Last Admin Trade Name Freq PRN Reason Stop Dose Admin Sodium Chloride 1,000 mls @ 30 ml s/hr 01/30/20 08:00 01/30/20 08:41 Sodium Chloride 0.9% IV 01/31/20 07:59 30 mls/hr .Q24H BYRON Administration PFSH Anesthesia PFSH: Medical History Degenerative lumbar spinal stenosis High risk medication use nursing home (current) use of systemic steroids Medication monitoring encounter Nontuberculous atypical mycobacterial disease Osteoporosis Pseudoaneurysm of carotid artery Rheumatoid arthritis with rheumatoid factor of multiple sites without organ or systems involvement Seropositive rheumatoid arthritis of multiple joints Surgical History History of back surgery History of knee replacement left on 10/12/16 and right on 12-05-16 Family History Other Hypertension Denies family history of Rheumatoid arthritis Diabetes CAD (coronary artery disease) Systemic lupus erythematosus (SLE) in adult Cancer Social History Smoking and tobacco status: former smoker Alcohol intake: former History of recent travel: No Data Anesthesia Cardiac Studies: No Data to Display
--- NOTE | 2020-01-30 09:06 | W.PM.OPSUD ---
Surgery/Procedure H&P Update DATE OF PROCEDURE: January 30, 2020 DATE H&P PERFORMED: 01/18/20 H&P UPDATE INFORMATION: I have reviewed H&P completed within last 30 days, I have examined patient prior to procedure and No changes to prior documentation CHANGES TO PREVIOUS DOCUMENTATION: Hoarseness Left True Vocal Cord Paralysis PREOP DIAGNOSIS: Left internal carotid artery pseudoaneurysm PRIMARY INDICATION FOR PROCEDURE: Left true vocal cord paralysis Hoarseness PLANNED PROCEDURE: Operation Date: 01/30/20 09:20 Proposed Procedures p Direct Laryngoscopy(Not Applicable) - Manas Malcolm MD s True Vocal Cord Injection(Not Applicable) - Manas Malcolm MD
[2020-01-30] MEDS: EPINEPHrine 1 mg/mL INJ 3 MG XX (09:29)
[2020-01-30] MEDS: fluorescein 1 mg Strip 3 MG XX (09:31)
--- NOTE | 2020-01-30 09:46 | PM.OP ---
Operative Report Date of procedure: January 30, 2020 Pre-op Diagnosis: Left true vocal cord paralysis; hoarseness Post-op diagnosis: same Post-op Findings: Normal laryngeal exam Procedure Done: Microdirect laryngoscopy Injection laryngoplasty, Left true vocal cord Implants: Left True Vocal Cord Prolaryn implant Specimens removed/disposition: None Pathology: none sent Surgeon: Manas Malcolm Elastic Yarn Twister: Sylvia Nice Anesthesia: General Estimated blood loss (mL): 5 IV fluids (mL): 250 Complications: None Condition: stable Disposition: PACU Brief History: 79 yo wm with left true vocal cord paralysis and significant hoarseness who desires surgical therapy. Procedure: The patient was identified in the preoperative holding area and was taken to the operating room where he was placed on the operating table in the supine position. Anesthesia was obtained with general endotracheal anesthesia and the table was then turned 90 degrees to the patient's left. A moist Ray-Keli was placed on the patient's maxillary gingiva and a surgical laryngoscope was advanced down the right oral cavity gutter under direct vision until the larynx came into view. A systematic inspection was carried of the patient's larynx with the findings noted above. At this point, 0.6 mL's of the Prolaryn laryngeal gel implant was injected into the left true vocal cord lateral to the left arytenoid at the appropriate site and depth until the appropriate medialization had been achieved. Once this was accomplished, the patient was taken off suspension and the procedure was terminated and control of the patient was returned to anesthesia. He then underwent an unremarkable reversal of anesthesia and extubation and was taken to the recovery room in stable condition. There were no operative or anesthetic complications.
== END 2020-01-30 10:55 | disposition home or self-care (01) ==
PROVIDERS: Family Provider Internal Medicine; PCP Internal Medicine; Visit Provider Specialist
PROC: 0CJS8ZZ Inspection of Larynx, Via Natural or Artificial Opening Endoscopic (ICD-10-PCS; CPT 31571; principal; 2020-01-30 09:20)
PROC: 3E0F3GC Introduction of Other Therapeutic Substance into Respiratory Tract, Percutaneous Approach (ICD-10-PCS; CPT 31571; 2020-01-30 09:20)
DX: J38.01 Paralysis of vocal cords and larynx, unilateral (principal); R49.0 Dysphonia; K21.9 Gastro-esophageal reflux disease without esophagitis; M06.9 Rheumatoid arthritis, unspecified; Z79.899 Other long term (current) drug therapy; M81.0 Age-related osteoporosis without current pathological fracture; Z82.49 Family history of ischemic heart disease and other diseases of the circulatory system; Z87.891 Personal history of nicotine dependence
CPT/HCPCS: 31571; 12345; J0171; J0330; J0690; J1100; J2001; J2405; J2704; J3010; J3490; J7030

== ENCOUNTER → 2020-01-31 09:27 | Outpatient (BNVA) | payer MEDICARE, OTHER, SELFPAY | PROVIDERS: Family Provider Internal Medicine; PCP Internal Medicine; Referring Provider Internal Medicine; Visit Provider Anesthesiology Pain Medicine | DX: M54.41 Lumbago with sciatica, right side (principal); M54.42 Lumbago with sciatica, left side; M48.061 Spinal stenosis, lumbar region without neurogenic claudication; M81.0 Age-related osteoporosis without current pathological fracture; M54.9 Dorsalgia, unspecified; M05.79 Rheumatoid arthritis with rheumatoid factor of multiple sites without organ or systems involvement; M25.511 Pain in right shoulder; M25.512 Pain in left shoulder; Z79.891 Long term (current) use of opiate analgesic | CPT/HCPCS: 99204 ==

== ENCOUNTER 2020-02-14 15:08 | Outpatient (CLI) | payer MEDICARE, OTHER, SELFPAY ==
--- NOTE | 2020-02-14 15:15 | MR_ITS ---
WS: [id number] MRI LUMBAR SPINE NONCONTRAST HISTORY: M48.061 Spinal stenosis, lumbar region without neurogenic... COMPARISON: None available. TECHNIQUE: Sagittal and axial multisequence imaging is submitted. Advanced degenerative changes throughout the cervical and thoracic spine. Chronic anterior wedging of C4 and C5. There is mild impingement upon the central cervical cord at the C5-6 level. 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 Advanced degenerative changes of the mid and lower tho racic spine. Chronic anterior wedging of T10 and T11 and T12. Severe degenerative changes throughout the lumbar spine. S1 is lumbarized. There are compression frac tures and Schmorl's nodes from L1 to L5. Areas of decreased signal on the T1 and T2 sequences and L2, L3, L4 and L5 may be vertebroplasties. No prior radiographs to confirm this. There is a small amount of marrow edema in the L4 and L5 vertebral bodies along the superior endplate of S1. Severe disc desiccation throughout the lumbar spine. Conus terminates normally at L1-2 disc level. L1-L2: Annular disc bulging and osteophytic ridging. Mild bilateral foraminal narrowing. L3-L4: Annular disc bulging and osteophytic ridging with mild ligamentum flavum hypertrophy and facet arthritis. Mild bilateral foraminal narrowing. L2-L3: Osteophytic ridging and disc bulging with facet arthritis and ligamentum flavum hypertrophy. M ild subarticular recess and bilateral foraminal narrowing. L4-L5: Marked osteophytic ridging and disc bulging with facet and ligamentum flavum hypertrophy. L4 r etrolisthesis by 5 mm. These findings are contributing to mild central stenosis. There is at least mo derate bilateral subarticular recess and foraminal stenosis. L5-S1: Severe osteophytic ridging with ligamentum flavum disease and facet arthritis. There is marked ligamentum flavum hypertrophy. There is severe central, bilateral subarticular recess and foraminal stenosis. Increased T2 signal and fluid in the L5-S1 facet joints bilaterally and the paraspinal soft tissues. Rudimentary disc at the S1-S2 level without significant stenosis. Infrarenal abdominal aortic aneurysm measures 5.1 cm transversely. Mild bilateral renal atrophy. MR/MR lumbar spine wo con* [id number] IMPRESSION: 1. Severe degenerative spondylitic changes throughout the spine, most signific ant in the lumbar spine. 2. Multiple compression fractures from L1 to L5. More acute fractures are like ly at L4, L5 and S1 as there is a small amount of marrow edema. Probably repres enting acute on chronic fractures. 3. Severe central, subarticular recess and bilateral foraminal stenosis at L5- S1. Moderate bilateral subarticular and foraminal stenosis at L4-5 with mild ce ntral stenosis. 4. Abdominal aortic aneurysm 5.1 cm. 5. Remote vertebral planar compression fracture at T5 with additional mild com pression deformities at T10, T11 and T12.
== END 2020-02-14 15:09 | disposition home or self-care (01) ==
LOC: RADSHAW 15:08
PROVIDERS: PCP Internal Medicine; Visit Provider Anesthesiology Pain Medicine
DX: M48.061 Spinal stenosis, lumbar region without neurogenic claudication (principal); M48.56XA Collapsed vertebra, not elsewhere classified, lumbar region, initial encounter for fracture; M48.07 Spinal stenosis, lumbosacral region; I71.4 Abdominal aortic aneurysm, without rupture; M48.54XA Collapsed vertebra, not elsewhere classified, thoracic region, initial encounter for fracture
CPT/HCPCS: 72148

== ENCOUNTER → 2020-03-01 09:36 | Outpatient (BNVA) | payer MEDICARE, OTHER, SELFPAY | PROVIDERS: Family Provider Internal Medicine; PCP Internal Medicine; Visit Provider Anesthesiology Pain Medicine | DX: M48.061 Spinal stenosis, lumbar region without neurogenic claudication (principal); A18.01 Tuberculosis of spine; M54.9 Dorsalgia, unspecified; M81.0 Age-related osteoporosis without current pathological fracture; M05.79 Rheumatoid arthritis with rheumatoid factor of multiple sites without organ or systems involvement; Z79.891 Long term (current) use of opiate analgesic | CPT/HCPCS: 99214 ==

== ENCOUNTER → 2020-03-25 11:14 | Outpatient (BNVA) | payer MEDICARE, OTHER, SELFPAY | PROVIDERS: Family Provider Internal Medicine; PCP Internal Medicine; Visit Provider Internal Medicine Rheumatology | DX: M05.79 Rheumatoid arthritis with rheumatoid factor of multiple sites without organ or systems involvement (principal); A31.9 Mycobacterial infection, unspecified; I72.0 Aneurysm of carotid artery; Z79.899 Other long term (current) drug therapy; Z79.52 Long term (current) use of systemic steroids; M48.061 Spinal stenosis, lumbar region without neurogenic claudication; M81.0 Age-related osteoporosis without current pathological fracture; Z96.653 Presence of artificial knee joint, bilateral; E27.40 Unspecified adrenocortical insufficiency | CPT/HCPCS: 99214 ==

== ENCOUNTER 2020-03-27 12:53 | Emergency (ER) | payer MEDICARE, OTHER, SELFPAY ==
[2020-03-27 13:00] VITALS: BP 131/67; PULSE 87; RESP 16; TEMP 37.2; O2SAT 97; BMI 27.4
[2020-03-27 14:00] VITALS: BP 116/66; PULSE 85; RESP 14; O2SAT 94
--- NOTE | 2020-03-27 14:12 | ED_ITS ---
HPI - Back Pain/Injury General: Chief Complaint: Back Pain/Injury Stated Complaint: WEAKNESS Time Seen by Provider: 03/27/20 13:18 Source: patient and family Mode of arrival: wheelchair Limitations: no limitations History of Present Illness: HPI Narrative: Patient is a 79-year-old male who presents to ED today along with his for complaints of chronic lower back pain. Patient tells me he has had back pain for several years. He is been at pain management over the past year trying to control his pain. tells me that she does not feel the pain medications given to him at pain management seem to be working anymore. Patient does not have any new symptoms today. He does not complain of fever/chills. He states his pain today is identical to his chronic back pains. Patient has had recent MRI of his lumbar spine (attached lower in this chart). MD elicited complaint: back pain Pertinent past history: prior back pain Timing: constant Severity: severe Similar Symptoms Previously: Yes Location: lumbar spine Associated symptoms: Deny abdominal pain, chills, dysuria or fever(s) Review of Systems Const: Denies: fever(s), chills or body aches Card: Denies: chest pain Resp: Denies: dyspnea GI: Denies: abdominal pain : Denies: flank pain, difficulty urinating or dysuria Musc: Reports: back pain; Denies: neck pain, extremity pain, extremity swelling, joint pain or joint swelling Neuro: Denies: headache(s), numbness in extremities, weakness in extremities or sensory changes [facility] ED PFSH: Medical History (Updated 03/27/20 @ 16:50 by ALYSHA Carrera) Degenerative lumbar spinal stenosis High risk medication use [facility] (current) use of systemic steroids Medication monitoring encounter Nontuberculous atypical mycobacterial disease Osteoporosis Pseudoaneurysm of carotid artery Rheumatoid arthritis with rheumatoid factor of multiple sites without organ or systems involvement Seropositive rheumatoid arthritis of multiple joints Surgical History History of back surgery History of knee replacement left on 10/12/16 and right on 12-05-16 Family History Other Hypertension Denies family history of Rheumatoid arthritis Diabetes CAD (coronary artery disease) Systemic lupus erythematosus (SLE) in adult Cancer Social History Smoking and tobacco status: former smoker Alcohol intake: former History of recent travel: No Physical Exam Const: COMMON NORMALS: no acute distress, average body habitus, patient oriented x3, no limitations, alert and well nourished GENERAL APPEARANCE: cooperative HENMT: COMMON NORMALS: normocephalic and atraumatic HEAD & SCALP: normocephalic and atraumatic Resp: COMMON NORMALS: normal respiratory effort and clear to auscultation bilaterally AUSCULTATION: clear to auscultation bilaterally Cardio: COMMON NORMALS: regular rate and regular rhythm RATE: regular rate RHYTHM: regular rhythm : COMMON NORMALS: Yes no CVA tenderness BLADDER/KIDNEY EXAM: Yes no CVA tenderness Back/Pelvis: COMMON NORMALS: no CVA tenderness THORACIC SPINE/UPPER BACK: Yes normal to inspection LUMBAR SPINE/LOWER BACK: Yes lumbar spinal tendernes s (throught mid to lower midline L spine) Neuro: COMMON NORMALS: patient oriented x3, moves all extremities, no focal motor deficits and no sensory deficits noted SENSORIUM/ORIENTATION: Yes alert Skin: COMMON NORMALS: no rashes or lesions noted GENERAL SKIN EXAM: no rashes or lesions noted Course Consultations: Consultation #1: I spoke to the nurse for patient at [facility] pain management specialists and explained to her the son's concern. She told me she would be okay with me giving patient pain medications to use this evening and throughout the night if needed for severe pain. She stated she would write a note in patient's chart so that Dr. Rendon would see this information tomorrow at his appointment. Vital Signs: Vital signs: Vital Signs Temperature 99.0 F 03/27/20 13:00 Pulse Rate 90 03/27/20 17:04 Respiratory Rate 17 03/27/20 17:04 Blood Pressure 103/66 03/27/20 17:04 Pulse Oximetry 92 03/27/20 17:04 MDM - Back Pain/Injury MDM Narrative: Medical decision making narrative: MRI report from last month is attached. Patient states he does feel better after IV morphine. Patient's son called and is extremely worried regarding patient's pain if he were to go home. I told son patient is under a pain management contract and I cannot write him for controlled medications. Patient does not meet admission criteria at this time. I did contact patient's pain management office ([facility]) and spoke to them. They stated patient actually has an appointment tomorrow at 11 AM. They have okayed me giving patient pain medications for this evening and throughout the night. Patient was given 3 tabs of 7.5 mg hydrocodone that he may take in addition to his normal pain medications as needed for severe pain. Imaging Data^: MRI lumbar 02/2020: Radiologist's impression: MR/MR lumbar spine wo con* [id number] IMPRESSION: 1. Severe degenerative spondylitic changes throughout the spine, most significant in the lumbar spine. 2. Multiple compression fractures from L1 to L5. More acute fractures are likely at L4, L5 and S1 as there is a small amount of marrow edema. Probably representing acute on chronic fractures. 3. Severe central, subarticular recess and bilateral foraminal stenosis at L5- S1. Moderate bilateral subarticular and foraminal stenosis at L4-5 with mild central stenosis. 4. Abdominal aortic aneurysm 5.1 cm. 5. Remote vertebral planar compression fracture at T5 with additional mild compression deformities at T10, T11 and T12. Discharge Plan Discharge Patient Disposition: Home, Self-Care Clinical Impression: Chronic back pain Qualifiers: Back pain location: low back pain Back pain laterality: midline Sciatica presence: without sciatica Qualified Code(s): M54.5 - Low back pain Condition: Stable Prescriptions: No Action naloxone 4 mg/actuation spray,non-aerosol 4 mg INTRANASAL Q2M PRN (Reason: opioid overdose) Qty: 1 RF: 0 hydromorphone [Dilaudid] 2 mg tablet 2 mg PO TID PRN (Reason: severe pain) 30 Days Qty: 90 RF: 0 ethambutol 400 mg tablet 800 mg PO QDAY Qty: 60 RF: 6 diphenoxylate-atropine [Lomotil] 2.5-0.025 mg tablet 1 tab PO DAILY PRN (Reason: Diarrhea) RF: 0 polyethylene glycol 3350 [Miralax] 17 gram/dose powder 17 gm PO BID PRN (Reason: Constipation) RF: 0 PreserVision AREDS 7,160-113-100 [id number] tablet 1 tab PO DAILY RF: 0 cholecalciferol (vitamin D3) 50 mcg (2,000 unit) capsule 50 mcg PO DAILY Qty: 90 RF: 1 hydroxychloroquine 200 mg tablet 200 mg PO BID Qty: 60 RF: 3 pantoprazole 40 mg tablet,delayed release (DR/EC) 40 mg PO BID Qty: 60 RF: 3 fluconazole [Diflucan] 100 mg tablet 100 mg PO DAILY RF: 0 calcium carbonate-vitamin D3 [Calcium 600 + D(3)] 600 mg(1,500mg) -200 unit Tablet 1 tab PO DAILY RF: 0 prednisone 10 mg tablet 10 mg PO .HS RF: 0 prednisone 20 mg tablet 20 mg PO .AM RF: 0 aspirin [Aspirin Childrens] 81 mg Tablet,Chewable 81 mg PO DAILY RF: 0 Discharge Orders: Discharge Order (Routine); Ordered 03/27/20 Ordered By: Angelina Ordaz Referrals: Meng Wu MD [Primary Care Provider] - Activity Restrictions/Additional Instructions: As discussed you have an appointment tomorrow at pain management at 11:00. Please make sure you keep this appointment for further evaluation of patient's chronic pain. You have been given 3 tablets of hydrocodone that patient may t shannan every 4 hours as needed for severe pain in addition to his normal pain medications. The pain management clinic is aware that you have been dispensed these medications. Discharge Date/Time: 03/27/20 17:09 Coding Level of Care Code ED Sap Basis Administrator for Frankie Stewart
--- NOTE | 2020-03-27 14:25 | PC.NURSE ---
PC TO [facility] ABOUT IF MORPHINE SULFATE IN ER PYXIS ABILITY TO BE ADM VIA IM. HER VERBNALIZED THAT HE WOULD CALL [facility] TO CONFIRM THE ROUTE OF ADM.
[2020-03-27 15:27] VITALS: BP 128/71; PULSE 90; RESP 14; O2SAT 92
[2020-03-27 15:31] VITALS: RESP 14; O2SAT 94
[2020-03-27] MEDS: morphine 4 mg/mL SDV 1 mL IV (15:31)
[2020-03-27] MEDS: HYDROcodone-acetaminophen 7.5-325 mg Tablet 3 TAB PO (17:02)
[2020-03-27 17:04] VITALS: BP 103/66; PULSE 90; RESP 17; O2SAT 92
== END 2020-03-27 17:09 | disposition home or self-care (01) ==
PROVIDERS: Emergency Provider Physician Assistant; PCP Internal Medicine
DX: G89.29 Other chronic pain (principal); M54.5 Low back pain; Z79.82 Long term (current) use of aspirin; Z87.891 Personal history of nicotine dependence
CPT/HCPCS: 12345; 96374; 99283; J2270

== ENCOUNTER 2020-04-01 12:16 | Inpatient (IN) | payer MEDICARE, OTHER, SELFPAY ==
[2020-04-01] VITALS (12 sets, daily range): BP systolic 85–108; BP diastolic 52–81; PULSE 60–103; RESP 14–20; TEMP 36.5–37.4; O2SAT 90–100; BMI 18.6
--- NOTE | 2020-04-01 12:40 | XRR_ITS ---
PROCEDURE INFORMATION: Exam: XR Chest, 1 View Exam date and time: 04/01/2020 1:06 PM Age: 79 years old Clinical indication: Cough and dyspnea and shortness of breath; Additional info: Dyspnea/cough TECHNIQUE: Imaging protocol: XR of the chest Views: 1 view. COMPARISON: No relevant prior studies available. FINDINGS: Lungs: There is a calcified granuloma in the mid right lung. No acute pneumonia or edema. There is chronic lung change. Pleural space: Unremarkable. No pleural effusion. No pneumothorax. Heart/Mediastinum: Unremarkable. No cardiomegaly. Bones/joints: Unremarkable. XR/XR chest 1V portable [id number] IMPRESSION: There are no acute concerning abnormalities.
[2020-04-01 13:24] LABS: Basophils # 0.1 10^3/uL (0.0-0.1); Basophils % 0.5 %; Hemoglobin 13.4 g/dL (11.7-16.6); Lymphocytes # 0.5 10^3/uL (0.8-4.8); Lymphocytes % 2.6 %; Mean Corpuscular HGB Conc 29.8 g/dL (30.0-36.0); Mean Corpuscular Hemoglobin 29.5 pg (28.0-34.0); Mean Corpuscular Volume 98.9 fL (80-94); Mean Platelet Volume 9.9 fL (7.4-10.4); Monocytes # 0.6 10^3/uL (0.2-0.9); Monocytes % 3.2 %; Nucleated Red Blood Cells % 0 %; Platelet Count 203 10^3/cmm (130-400); Red Blood Count 4.55 10^6/uL (4.1-5.3); Red Cell Distribution Width 15.2 % (12.1-15.1); White Blood Count 17.2 10^3/uL (4.0-10.0)
[2020-04-01 13:28] LABS: Add Urine Microscopic? YES; Bilirubin Urine 1+ (NEGATIVE); Blood Urine 3+ (Negative); Glucose Urine UA 1+ (Normal); Ketones Urine 1+ (Negative); Leukocyte Esterase Urine 1+ (Negative); Nitrate Urine Negative (Negative); Protein Urine 1+ (Negative); Specific Gravity, Urine 1.025 (1.005-1.030); Urine Appearance SL Hazy (CLEAR); Urine Color Dark Yellow (Yellow); Urobilinogen Urine 1 mg/dL (Negative); pH Urine 5 (5-7)
[2020-04-01 13:46] LABS: Add Urine Culture? Yes; Bacteria Urine 2+; Coarse Granular Casts Urine 0-4 /lpf; Fine Granular Casts Urine 0-4 /lpf; Mucus Urine 1+; RBC Urine 0-4 /hpf (0-2)
[2020-04-01 13:50] LABS: Neutrophils % 93.7 %
--- NOTE | 2020-04-01 14:13 | W.ED.GENADLT ---
HPI - General Adult General: Chief complaint: General Medical Stated complaint: POSS PNEUMONIA, SOB Time Seen by Provider: 04/01/20 12:17 History of Present Illness: HPI narrative: 79-year-old male comes in complaining of dyspnea and cough cough not really been very productive is not any fever no nausea vomiting or diarrhea he denies chest pain or abdominal pain no lobe he has had some low back pain. 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 He is mildly tachycardic and tachypneic he is using 3 L per nasal cannula to maintain sats in the low 90s. Onset (ago): hour(s) Location: back Radiation: non-radiation Severity: moderate Quality: sharp Relieving factors: none Exacerbating factors: none Associated symptoms: Reports dyspnea, short of breath and weakness; Deny chest pain, cough, diaphoresis, decreased appetite, fevers/chills, headache(s), rash or vomiting Treatments prior to arrival: none Review of Systems Const: Denies: diaphoresis ENMT: Denies: throat pain, ear or mastoid pain, nasal discharge or nasal congestion Card: Denies: chest pain Resp: Reports: dyspnea GI: Denies: vomiting : Denies: flank pain, dysuria, urinary frequency or urinary urgency Skin/Breast: Denies: rash or pruritus Neuro: Denies: headache(s) PFSH ED PFSH: Medical History Degenerative lumbar spinal stenosis High risk 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 use 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 systemic 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 Medication monitoring encounter Nontuberculous atypical mycobacterial disease Osteoporosis Pseudoaneurysm of carotid artery Rheumatoid arthritis with rheumatoid factor of multiple sites without organ or systems involvement Seropositive rheumatoid arthritis of multiple joints Surgical History History of back surgery History of knee replacement left on 10/12/16 and right on 12-05-16 Family History Other Hypertension Denies family history of Rheumatoid arthritis Diabetes CAD (coronary artery disease) Systemic lupus erythematosus (SLE) in adult Cancer Social History Smoking and tobacco status: former smoker Alcohol intake: former History of recent travel: No Physical Exam Const: COMMON NORMALS: no acute distress GENERAL APPEARANCE: cooperative and comfortable ORIENTATION/CONSCIOUSNESS: Yes awake, Yes oriented to person, Yes oriented to place and Yes oriented to time HENMT: COMMON NORMALS: normocephalic, atraumatic, hearing grossly normal bilaterally, external ears normal, EAC's normal, TM's normal bilaterally, Normal nasal mucous membranes and turbinates present, moist oral mucous membranes and oropharynx normal HEAD & SCALP: normocephalic and atraumatic NOSE: Normal nasal mucous membranes and turbinates present EXTERNAL EAR: Yes external ears normal EXTERNAL AUDITORY CANAL: EAC's normal TYMPANIC MEMBRANE: TM's normal bilaterally Eye: COMMON NORMALS: Equal, round and reactive pupils present, EOMs intact bilaterally, conjunctivae normal and no scleral icterus CONJUNCTIVA: Yes conjunctivae normal PUPIL: Yes Equal, round and reactive pupils present Neck/C-Spine: COMMON NORMALS: full ROM, no lymphadenopathy, supple and no JVD Lymph: LYMPHATIC: no lymphadenopathy noted and no lymphedema noted Resp: AUSCULTATION: rhonchi, wheezes and diminished lung sounds Cardio: COMMON NORMALS: no JVD, regular rate, regular rhythm and No murmurs present (Cardio) RATE: regular rate RHYTHM: regular rhythm GI: COMMON NORMALS: Soft to palpation and No hepatosplenomegaly present AUSCULTATION: Yes normoactive bowel sounds PALPATION: Yes Soft to palpation, No Tenderness to palpation present (GI), No Guarding due to palpation present (GI) and Yes No hepatosplenomegaly present Extremity: COMMON NORMALS: normal to inspection, capillary refill normal, no clubbing, cyanosis or edema, no calf tenderness and no pedal edema Neuro: SENSORIUM/ORIENTATION: Yes oriented to person, Yes oriented to place and Yes oriented to time Skin: COMMON NORMALS: no rashes or lesions noted GENERAL SKIN EXAM: no rashes or lesions noted Course Vital Signs: Vital signs: Vital Signs Temperature 97.7 F 04/01/20 22:46 Pulse Rate 70 04/02/20 12:00 Respiratory Rate 22 H 04/02/20 12:00 Blood Pressure 137/70 04/02/20 12:00 Pulse Oximetry 99 04/02/20 12:00 MDM - General Adult MDM Narrative: Medical decision making narrative: Admit with pneumonia per CT results. We did COVID saw the patient as well Dr. Santos will come and see the patient. Lab Data: Labs: Lab Results 04/01/20 04/01/20 04/01/20 Range/Units 00:45 13:00 13:15 WBC 17.2 H (4.0-10.0) 10^3/ uL RBC 4.55 (4.1-5.3) 10^6/u L Hgb 13.4 (11.7-16.6) g/dL Hct 45.0 (42.0-52.0) % MCV 98.9 H (80-94) fL MCH 29.5 (28.0-34.0) pg MCHC 29.8 L (30.0-36.0) g/dL RDW 15.2 H (12.1-15.1) % Plt Count 203 (130-400) 10^3/c mm MPV 9.9 (7.4-10.4) fL Neut % (Auto) 93.7 % Lymph % (Auto) 2.6 % [place] % (Auto) 3.2 % Eos % (Auto) 0.0 % Baso % (Auto) 0.5 % Neut # (Auto) 15.80 H (1.8-7.7) 10^3/u L Lymph # (Auto) 0.5 L (0.8-4.8) 10^3/u L [place] # (Auto) 0.6 (0.2-0.9) 10^3/u L Eos # (Auto) 0.0 (0.0-0.8) 10^3/u L Baso # (Auto) 0.1 (0.0-0.1) 10^3/u L Nucleated RBC % (a uto) 0 % Nucleated RBCs # 0.0 /100WBC ESR (0-10) mm/hr Sodium (136-145) mmol/L Potassium (3.5-5.1) mmol/L Chloride (98-107) mmol/L Carbon Dioxide (22-29) mmol/L Anion Gap (5-19) BUN (8-23) mg/dL Creatinine (0.7-1.2) mg/dL GFR Calculation Glucose (65-115) mg/dL Calculated Osmolal ity (285-295) mOsm/k g Lactic Acid 0.9 (0.5-2.2) mmol/L Calcium (8.5-10.5) mg/dL Magnesium (1.7-2.3) mg/dL Total Bilirubin (0.15-1.2) mg/dL AST (0-40) U/L ALT (0-41) U/L Alkaline Phosphata se (40-130) IU/L C-Reactive Protein (0.0-4.9) mg/L Total Protein (6.6-8.7) g/dL Albumin (3.5-5.2) g/dL Globulin (1.3-4.6) g/dL Urine Color Dark yellow (Yellow) Urine Appearance Sl hazy (CLEAR) Urine pH 5 (5-7) Ur Specific Gravit y 1.025 (1.005-1.030) Urine Protein 1+ H (Negative) Urine Glucose (UA) 1+ (Normal) Urine Ketones 1+ H (Negative) Urine Blood 3+ H (Negative) Urine Nitrate Negative (Negative) Urine Bilirubin 1+ H (NEGATIVE) Urine Urobilinogen 1 H (Negative) mg/dL Ur Leukocyte Noreen ase 1+ H (Negative) Urine RBC 0-4 H (0-2) /hpf Urine WBC 5-10 H (0-5) /hpf Ur Squamous Epith Cells None (0-5) Amorphous Sediment Not Reportable Urine Bacteria 2+ H (NONE) Hyaline Casts 5-10 H Fine Granular Cast s 0-4 H /lpf Coarse Granular Ca sts 0-4 H /lpf Urine Mucus 1+ 04/01/20 04/01/20 Range/Units 13:15 13:15 WBC (4.0-10.0) 10^3/ uL RBC (4.1-5.3) 10^6/u L Hgb (11.7-16.6) g/dL Hct (42.0-52.0) % MCV (80-94) fL MCH (28.0-34.0) pg MCHC (30.0-36.0) g/dL RDW (12.1-15.1) % Plt Count (130-400) 10^3/c mm MPV (7.4-10.4) fL Neut % (Auto) % Lymph % (Auto) % [place] % (Auto) % Eos % (Auto) % Baso % (Auto) % Neut # (Auto) (1.8-7.7) 10^3/u L Lymph # (Auto) (0.8-4.8) 10^3/u L [place] # (Auto) (0.2-0.9) 10^3/u L Eos # (Auto) (0.0-0.8) 10^3/u L Baso # (Auto) (0.0-0.1) 10^3/u L Nucleated RBC % (a uto) % Nucleated RBCs # /100WBC ESR 55 H (0-10) mm/hr Sodium 138 (136-145) mmol/L Potassium 4.3 (3.5-5.1) mmol/L Chloride 102 (98-107) mmol/L Carbon Dioxide 21 L (22-29) mmol/L Anion Gap 19.3 H (5-19) BUN 38 H (8-23) mg/dL Creatinine 2.2 H (0.7-1.2) mg/dL GFR Calculation Not Reportable Glucose 120 H (65-115) mg/dL Calculated Osmolal ity 285 (285-295) mOsm/k g Lactic Acid (0.5-2.2) mmol/L Calcium 8.9 (8.5-10.5) mg/dL Magnesium 2.1 (1.7-2.3) mg/dL Total Bilirubin 1.5 H (0.15-1.2) mg/dL AST 43 H (0-40) U/L ALT 30 (0-41) U/L Alkaline Phosphata se 97 (40-130) IU/L C-Reactive Protein 145.3 H (0.0-4.9) mg/L Total Protein 5.9 L (6.6-8.7) g/dL Albumin 3.5 (3.5-5.2) g/dL Globulin 2.4 (1.3-4.6) g/dL Urine Color (Yellow) Urine Appearance (CLEAR) Urine pH (5-7) Ur Specific Gravit y (1.005-1.030) Urine Protein (Negative) Urine Glucose (UA) (Normal) Urine Ketones (Negative) Urine Blood (Negative) Urine Nitrate (Negative) Urine Bilirubin (NEGATIVE) Urine Urobilinogen (Negative) mg/dL Ur Leukocyte Noreen ase (Negative) Urine RBC (0-2) /hpf Urine WBC (0-5) /hpf Ur Squamous Epith Cells (0-5) Amorphous Sediment Urine Bacteria (NONE) Hyaline Casts Fine Granular Cast s /lpf Coarse Granular Ca sts /lpf Urine Mucus Discharge Plan Discharge Patient Disposition: Admitted As Inpatient Admit Provider: Anders Adame Discharge Date/Time: 04/01/20 22:24 Coding Level of Care Code ED Gastrointestinal Technician for Chg Fwd Exam Comprehensive
--- NOTE | 2020-04-01 14:14 | CTR_ITS ---
PROCEDURE INFORMATION: Exam: CT Lumbar Spine With Contrast Exam date and time: 04/01/2020 2:38 PM Age: 79 years old Clinical indication: Low back pain; Prior surgery; Surgery type: Kyphoplasty; Additional info: Low back pain history of vertebral osteomyelitis TECHNIQUE: Imaging protocol: Computed tomography images of the lumbar spine with intravenous contrast. Radiation optimization: All CT scans at this facility use at least one of these dose optimization techniques: automated exposure control; mA and/or kV adjustment per patient size (includes targeted exams where dose is matched to clinical indication); or iterative reconstruction. Contrast material: VISIPAQUE; Contrast volume: 65 ml; Contrast route: INTRAVENOUS (IV); COMPARISON: MR lumbar spine wo con* [id number] 02/14/2020 3:35 PM RADIATION DOSE METRICS: Total DLP (mGy-cm): 2108.1 FINDINGS: Vertebrae: There have been kyphoplasties at L4, L3, L2 and L1. There is deformity of the L1, L2, L3, L4 and L5 vertebral bodies as before. No acute fracture. L1-L2: There is a diffuse disc bulge resulting in mild central canal stenosis. There is mild bilateral neural foraminal narrowing. L2-L3: There is a diffuse disc bulge, facet disease and ligamentum flavum hypertrophy resulting in mild central canal stenosis. There is mild bilateral neural foraminal narrowing. L3-L4: There is a diffuse disc bulge, facet disease and ligamentum flavum hypertrophy resulting in mild central canal stenosis. There is mild bilateral neural foraminal narrowing. L4-L5: There is a diffuse disc bulge, facet disease and ligamentum flavum hypertrophy resulting in mild central canal stenosis. There is moderate bilateral neural foraminal narrowing. L5-S1: There is a diffuse disc bulge, facet disease and ligamentum flavum hypertrophy resulting in advanced central canal stenosis. There is advanced bilateral neural foraminal narrowing. Soft tissues: There is an infrarenal abdominal aortic aneurysm as before. CT/CT lumbar spine w con [id number] IMPRESSION: Extensive disease in the lumbar spine is again identified. Findings are not significantly changed when compared with 02/14/2020. Radiation Dose CTDIVOL = (mGy): DLP = 2108.1 (mGy-cm)
--- NOTE | 2020-04-01 14:16 | CTR_ITS ---
PROCEDURE INFORMATION: Exam: CT Angiography Chest With Contrast Exam date and time: 04/01/2020 2:37 PM Age: 79 years old Clinical indication: Dyspnea; Prior surgery; Surgery type: Gallbladder, kyphoplasty TECHNIQUE: Imaging protocol: Computed tomographic angiography of the chest with intravenous contrast. 3D rendering: MIP and/or 3D reconstructed images were created by the technologist. Radiation optimization: All CT scans at this facility use at least one of these dose optimization techniques: automated exposure control; mA and/or kV adjustment per patient size (includes targeted exams where dose is matched to clinical indication); or iterative reconstruction. Contrast material: VISIPAQUE; Contrast volume: 54 ml; Contrast route: INTRAVENOUS (IV); COMPARISON: CR XR chest 1V portable [id number] 04/01/2020 12:52 PM RADIATION DOSE METRICS: Total DLP (mGy-cm): 555.78 FINDINGS: Pulmonary arteries: Normal. No pulmonary emboli. Aorta: Unremarkable. No aortic aneurysm. No aortic dissection. Lungs: There is lung emphysema. There are calcified granulomas in the bilateral upper lobes of the lung. There is consolidation in the bilateral lower lobes of the lung. No dominant lung mass is identified. Pleural space: Unremarkable. No pneumothorax. No pleural effusion. Heart: Unremarkable. No cardiomegaly. No pericardial effusion. Lymph nodes: Unremarkable. No enlarged lymph nodes. Bones/joints: Degenerative change is identified in the spine. There are old deformities in the upper and midthoracic spine. No acute fracture. Soft tissues: Unremarkable. CT/CT angio chest PE protcl [id number] IMPRESSION: There is no evidence for a pulmonary embolus. There is consolidation in the bilateral lower lobes of the lung consistent with atelectasis and/or pneumonia. There is lung emphysema. Radiation Dose CTDIVOL = (mGy): DLP = 555.78 (mGy-cm)
[2020-04-01] MEDS: HYDROcodone-acetaminophen 5-325 mg Tablet 2 TAB PO (14:27)
[2020-04-01] MEDS: diphenhydrAMINE 50 mg/mL SDV 1mL IVP (15:45)
[2020-04-01] MEDS: hydrocortisone 100 mg/2 mL SDV IVP (15:45)
[2020-04-01] MEDS: iodixanol 320 mg/mL 100mL Btl IV ×2 (16:06→16:20)
[2020-04-01] MEDS: levofloxacin-dextrose 5 % 750 MG/150 ML PREMIX 100 MG IV (17:55)
--- NOTE | 2020-04-01 17:57 | PM.HP ---
Providers/Chief Complaint Primary Care Provider: Meng Wu MD Chief Complaint: POSS PNEUMONIA, SOB History of Present Illness Lg Lund is a 79 year old male presents to emergency department with shortness of breath and cough but could not tell me for how long. He has vocal cords dysfunction and received Benadryl for CT premedication and during my evaluation I could barely understand anything he said. He denied chest pain or abdominal pain.. He denied previous history of diabetes, heart disease or stroke. Most of the information was obtained from previous records. He was complaining of back pain and patient was evaluated with lumbar spine CT showing no acute findings. 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 Patient was further evaluated CT scan of the chest showing bibasilar pneumonia. COVID-19 test was ordered. Review of Systems Narrative: Review of system is limited due to patient's mental status and vocal cord pathology. He is somnolent post Benadryl. Medications/Allergies Home Medications Medication Instructions Recorded Confirmed Last Taken Type diphenoxylate-atropine 2.5 1 tab PO DAILY PRN 09/18/19 04/01/20 Unknown History mg-0.025 mg tablet polyethylene glycol 3350 17 17 gm PO BID PRN 09/18/19 04/01/20 03/31/20 History gram/dose oral powder ethambutol 400 mg tablet 800 mg PO QDAY #60 tab 10/02/19 04/01/20 04/01/20 Rx aspirin [Aspirin Childrens] 81 mg PO DAILY 11/16/19 04/01/20 03/31/20 History cholecalciferol (vitamin D3) 50 50 mcg PO DAILY #90 cap 12/21/19 04/01/20 04/01/20 Rx mcg (2,000 unit) capsule vitamins A,C,J-ukcm-ytkhgp 7,160 1 tab PO DAILY tab 12/21/19 04/01/20 04/01/20 History unit-113 mg-100 unit tablet calcium carbonate-vitamin D3 1 tab PO DAILY 01/30/20 04/01/20 04/01/20 History [Calcium 600 + D(3)] fluconazole [Diflucan] 100 mg PO DAILY 01/30/20 04/01/20 01/29/20 History hydroxychloroquine 200 mg tablet 200 mg PO BID #60 tab 02/26/20 04/01/2004/01/20 Rx pantoprazole 40 mg tablet,delayed 40 mg PO BID #60 tab 02/29/20 04/01/20 04/01/20 Rx release naloxone 4 mg/actuation nasal spray 4 mg INTRANASAL Q2M PRN #1 each 03/01/20 04/01/20 Unknown Rx gabapentin 300 mg capsule 300 mg PO BID 30 Days #60 cap 03/29/20 04/01/20 04/01/20 Rx hydromorphone 4 mg tablet 4 mg PO QID PRN 30 Days #120 tab 03/29/20 04/01/20 04/01/20 Rx prednisone 10 mg tablet 10 mg PO DAILY tab 03/29/20 04/01/20 04/01/20 History pediatric multivitamin no.42 1 tab PO DAILY 04/01/20 04/01/20 03/31/20 History [Children's Multivitamin] Allergies Allergy/AdvReac Type Severity Reaction Status Date / Time adhesive tape Allergy RASH Verified 04/01/20 12:34 Iodinated Contrast Media AdvReac ADR-Chest Verified 04/01/20 12:34 Pain PFSH Acute PFSH: Medical History Degenerative lumbar spinal stenosis 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 Medication monitoring encounter Nontuberculous atypical mycobacterial disease Osteoporosis Pseudoaneurysm of carotid artery Rheumatoid arthritis with rheumatoid factor of multiple sites without organ or systems involvement Seropositive rheumatoid arthritis of multiple joints Surgical History History of back surgery History of knee replacement left on 10/12/16 and right on 12-05-16 Family History Other Hypertension Denies family history of Rheumatoid arthritis Diabetes CAD (coronary artery disease) Systemic lupus erythematosus (SLE) in adult Cancer Social History Smoking and tobacco status: former smoker Alcohol intake: former History of recent travel: No Vitals/I&O/Wt Last Vital Signs Temp 99.4 F 04/01/20 12:26 Pulse 103 H 04/01/20 12:26 Resp 20 H 04/01/20 12:26 BP 101/65 04/01/20 12:26 Pulse Ox 91 04/01/20 12:26 Weight last 48 hrs Weight 52.163 kg Physical Exam Const: OTHER: Appears to be not in distress at rest. Somnolent and has gurgling sounds when he tries to talk. This appears to be related to paralysis of left vocal cord and recent surgery. Clinically appears to be dry with dry oral mucosa. Appears to have chronic steroid related skin thinning and easily teared. HENMT: COMMON NORMALS: normocephalic and atraumatic HEAD & SCALP: normocephalic and atraumatic Eye: COMMON NORMALS: EOMs intact bilaterally, conjunctivae normal and no scleral icterus CONJUNCTIVA: Yes conjunctivae normal Neck/C-Spine: COMMON NORMALS: no lymphadenopathy and no meningeal signs Lymph: LYMPHATIC: no lymphadenopathy noted Chest: COMMONS NORMALS: normal palpation of entire chest wall Resp: COMMON NORMALS: No use of accessory muscles and clear to auscultation bilaterally OTHER: Bibasilar Rales. Coarse breath sounds throughout which appears to be mostly being upper airway transmitted sounds. Cardio: COMMON NORMALS: regular rate, regular rhythm and No murmurs present (Cardio) RATE: regular rate RHYTHM: regular rhythm OTHER: No lower extremity edema GI: COMMON NORMALS: Soft to palpation and non-tender PALPATION: Yes Soft to palpation RECTAL EXAM: Yes deferred : COMMON NORMALS: Yes no CVA tenderness BLADDER/KIDNEY EXAM: Yes no CVA tenderness Back/Pelvis: COMMON NORMALS: no CVA tenderness and thoracic and lumbar spine normal to inspection Extremity: COMMON NORMALS: capillary refill normal OTHER: Has rheumatoid deformities, ulnar deviations Neuro: COMMON NORMALS: no focal motor deficits SENSORIUM/ORIENTATION: Yes alert MENINGEAL SIGNS: Yes no meningeal signs OTHER: Appears to be oriented but cannot be completely evaluated. Psych: COMMON NORMALS: mental status grossly normal, Normal thought process present and cooperative THOUGHT PROCESS: Normal thought process present Skin: NARRATIVE SKIN EXAM: Has stage II left buttock ulcer/skin tear and stage I coccyx pressure ulcer Data : 04/01/20 13:15 04/01/20 13:15 Micro: Microbiology 04/01/20 13:30 Blood Culture - Preliminary Blood SPECIMEN COLLECTED 04/01/20 13:15 Blood Culture - Preliminary Blood SPECIMEN COLLECTED A&P Assessment and plan (1) Community acquired pneumonia: Bibasilar. Status: Acute (2) Vocal cord dysfunction: Status: Acute (3) [facility] (current) use of systemic steroids: Status: Acute (4) Seropositive rheumatoid arthritis of multiple joints: Status: Acute (5) Adrenal insufficiency: Status: Acute (6) Chronic back pain: Status: Acute Qualifiers: Back pain laterality: midline Back pain location: low back pain Sciatica presence: without sciatica Qualified Code(s): M54.5 - Low back pain; G89.29 - Other chronic pain (7) Sepsis: As exhibited by leukocytosis and tachycardia. Status: Acute (8) Acute respiratory failure with hypoxia: Status: Acute (9) Possible urinary tract infection: Status: Acute Additional A&P Information PLAN: Obtain CMP and lactic acid as well as inflammatory markers. Continue Levaquin and add ceftriaxone. We will await for labs to initiate IV fluids cautiously. Obtain echocardiogram to evaluate ejection fraction. Awaiting COVID-19 test. I am not comfortable patient going to the regular MedSurg. I am trying to arrange bed in ICU and transfer patient to ICU given his high risk for deterioration. Attestations Medical Necessity Statement*: Patient with sepsis and acute hypoxic respite failure requires close ICU monitoring and treatment due to high risk of deterioration. I expect patient will require more than 2 midnights. Time Spent in Patient Care: Greater than 35 minutes Coding Level of Care Code Acute Spindle Plumber for g Fwd Exam Comprehensive Diagnoses Community acquired pneumonia J18.9 Vocal cord dysfunction J38.3 [facility] (current) use of systemic steroids Z79.52 Seropositive rheumatoid arthritis of multiple joints M05.79 Adrenal insufficiency E27.40 Chronic back pain M54.5; G89.29 Back pain laterality: midline Back pain location: low back pain Sciatica presence: without sciatica Sepsis A41.9 Acute respiratory failure with hypoxia J96.01 Possible urinary tract infection R39.89
[2020-04-01 18:53] LABS: Alanine Aminotransferase 30 U/L (0-41); Albumin Level 3.5 g/dL (3.5-5.2); Alkaline Phosphatase 97 IU/L (40-130); Aspartate Amino Transferase 43 U/L (0-40); Blood Urea Nitrogen 38 mg/dL (8-23); C Reactive Protein 145.3 mg/L (0.0-4.9); Calcium 8.9 mg/dL (8.5-10.5); Carbon Dioxide 21 mmol/L (22-29); Chloride 102 mmol/L (98-107); Globulin 2.4 g/dL (1.3-4.6); Glucose 120 mg/dL (65-115); Magnesium 2.1 mg/dL (1.7-2.3); Osmolality Calculated 285 mOsm/kg (285-295); Sodium 138 mmol/L (136-145); Total Bilirubin 1.5 mg/dL (0.15-1.2); Total Protein 5.9 g/dL (6.6-8.7)
--- NOTE | 2020-04-01 18:58 | ECG_ITS ---
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 Measurements Intervals [place] Rate: 60 P: 142 WA: 124 QRS: -33 QRSD: 75 T: 87 QT: 451 QTc: 451 Interpretive Statements ECTOPIC ATRIAL RHYTHM LEFT ATRIAL ENLARGEMENT [-0.15mV P WAVE IN V1/V2] POSSIBLE RIGHT VENTRICULAR CONDUCTION DELAY [RSR (QR) IN V1/V2] Compared to ECG 11/16/2019 10:16:41 Ectopic atrial rhythm now present Atrial abnormality now present Sinus rhythm no longer present Left-axis deviation no longer present Electronically Signed On 04-02-2020 20:41:48 CDT by Ana Lilia Richardson M.D. [id number]
[2020-04-01] MEDS: sodium chloride 0.9% 1,000 ML 75 ML IV (19:04)
[2020-04-01 19:10] LABS: Erythrocyte Sedimentation Rate 55 mm/hr (0-10)
[2020-04-01 19:32] LABS: Creatine Phosphokinase 195 U/L (39-308)
[2020-04-01 19:33] LABS: Troponin(5th) Baseline 7 ng/L (0-15)
[2020-04-01 19:33] LABS: Anion Gap 19.3 (5-19); Potassium 4.3 mmol/L (3.5-5.1)
--- NOTE | 2020-04-01 20:58 | ECG_ITS ---
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 Measurements Intervals [place] Rate: 67 P: [place]: -1 QRS: -41 QRSD: 122 T: 78 QT: 473 QTc: 500 Interpretive Statements Sinus REGULAR RHYTHM MARKED LEFT AXIS DEVIATION [QRS AXIS < -30] POSSIBLE RIGHT VENTRICULAR CONDUCTION DELAY [RSR (QR) IN V1/V2] LEFT VENTRICULAR HYPERTROPHY AND ST-T CHANGE [VOLTAGE CRITERIA PLUS ST/T ABNORMALITY] WARNING: DATA QUALITY MAY AFFECT INTERPRETATION Compared to ECG 04/01/2020 22:02:13 Left-axis deviation now present Left ventricular hypertrophy now present ST (T wave) deviation now present Ectopic atrial rhythm no longer present Atrial abnormality no longer present Electronically Signed On 04-02-2020 20:45:21 CDT by Ana Lilia Richardson M.D. [id number]
[2020-04-01 21:24] LABS: Troponin 5 2HR 78.61 ng/L (0-15)
[2020-04-01 21:42] LABS: Troponin 5 2HR Delta 71.61 ABS# (0-10)
--- NOTE | 2020-04-01 21:45 | PC.NURSE ---
lab called about critical 2 hour trop 78.61; delta 71.61. notified Dr. Vail
--- NOTE | 2020-04-01 23:00 | PC.NURSE ---
Clarified fluid order with Dr. Vail as patient as two orders. Dr. Vail ordered to do normal saline only and discontinue D5 1/2 NS with 20 mEq of potassium now.
[2020-04-01] MEDS: cefTRIAXone 1,000 MG in sodium chloride 0.9% (plus) 50 ML 100 MG IV (23:30)
[2020-04-01] MEDS: enoxaparin 40 mg/0.4 mL Syringe SUBCUT (23:30)
[2020-04-02] VITALS (28 sets, daily range): BP systolic 85–153; BP diastolic 51–87; PULSE 58–95; RESP 15–27; TEMP 36.5; O2SAT 88–100
[2020-04-02] MEDS: sennosides 8.6 mg Tablet 17.2 MG PO ×2 (00:15→21:29)
[2020-04-02 00:54] LABS: Basophils % 0.3 %; Eosinophils % 0.2 %; Hematocrit 36.3 % (42.0-52.0); Hemoglobin 11.1 g/dL (11.7-16.6); Lymphocytes # 0.6 10^3/uL (0.8-4.8); Lymphocytes % 6.2 %; Mean Corpuscular HGB Conc 30.6 g/dL (30.0-36.0); Mean Corpuscular Hemoglobin 29.4 pg (28.0-34.0); Mean Platelet Volume 9.6 fL (7.4-10.4); Monocytes # 0.2 10^3/uL (0.2-0.9); Monocytes % 1.9 %; Neutrophils # 7.96 10^3/uL (1.8-7.7); Nucleated Red Blood Cells % 0 %; Platelet Count 169 10^3/cmm (130-400); Red Blood Count 3.78 10^6/uL (4.1-5.3); Red Cell Distribution Width 14.8 % (12.1-15.1); White Blood Count 8.9 10^3/uL (4.0-10.0)
--- NOTE | 2020-04-02 00:58 | ECG_ITS ---
[facility] Test Date: 2020-04-02 Pat Name: Lg Lund Department: Room: ICU06 Gender: Male Person Investigator: : 1940 Requested By: Anders Adame Order Number: [id number] Gustavo MD: Ana Lilia Richardson M.D. Measurements Intervals [place] Rate: 65 P: 15 VT: 169 QRS: -36 QRSD: 96 T: 8 QT: 449 QTc: 469 Interpretive Statements SINUS RHYTHM MARKED LEFT AXIS DEVIATION [QRS AXIS < -30] PROLONGED QT INTERVAL Compared to ECG 04/01/2020 23:43:56 Prolonged QT interval now present Left ventricular hypertrophy no longer present ST (T wave) deviation no longer present Electronically Signed On 04-02-2020 20:45:27 CDT by Ana Lilia Richardson M.D. [id number]
[2020-04-02 01:02] LABS: Slide Review Slide Review Perform
[2020-04-02 01:05] LABS: Alanine Aminotransferase 25 U/L (0-41); Albumin Level 2.7 g/dL (3.5-5.2); Alkaline Phosphatase 79 IU/L (40-130); Anion Gap 13.6 (5-19); Aspartate Amino Transferase 35 U/L (0-40); Blood Urea Nitrogen 37 mg/dL (8-23); Calcium 8.3 mg/dL (8.5-10.5); Carbon Dioxide 23 mmol/L (22-29); Chloride 103 mmol/L (98-107); Globulin 2.8 g/dL (1.3-4.6); Glucose 96 mg/dL (65-115); Osmolality Calculated 277 mOsm/kg (285-295); Potassium 4.6 mmol/L (3.5-5.1); Sodium 135 mmol/L (136-145); Total Bilirubin 1.1 mg/dL (0.15-1.2); Total Protein 5.5 g/dL (6.6-8.7)
[2020-04-02 01:06] LABS: Lactic Sepsis W/Reflex 0.9 mmol/L (0.5-2.2)
[2020-04-02 01:08] LABS: Troponin 5 6HR 68.46 ng/L (0-15)
[2020-04-02 01:10] LABS: Troponin 5 6HR Delta 61.46 ng/L (0-12)
[2020-04-02] MEDS: lactated ringers 1,000 ML 999 ML IV (05:05)
--- NOTE | 2020-04-02 05:08 | PC.NURSE ---
Dr. Vail clarified Lovenox should be 50 mg BID starting at 1130 04/02/20
[2020-04-02 05:29] LABS: D Dimer 2.38 ug/mIFEU (0-0.59)
--- NOTE | 2020-04-02 08:45 | PM.PN ---
Subjective Subjective: Interval history: Patient reports feeling better this morning. He is denies chest pain and does not really report significant shortness of breath while at rest. Denies abdominal pain. Reports that he is usually constipated at home and had no bowel movement yet. He thinks he may have one today. His troponin significantly increased last night and he was started on therapeutic anticoagulation with Lovenox. White blood cell count is down to 8.9. He continues to have minimal cough. He is speech is much better to understand today. Creatinine is improving. Vitals/I&O/Wt Last Vital Signs Temp 97.7 F 04/01/20 22:46 Pulse 82 04/02/20 07:40 Resp 16 04/02/20 07:40 BP 116/67 04/02/20 06:00 Pulse Ox 97 04/02/20 07:40 04/01/20 04/02/20 04/02/20 22:59 06:59 14:59 Intake Total 50 / 50 Balance 50 / 50 Weight last 48 hrs Weight 52.163 kg Weight 52.163 kg Physical Exam Const: COMMON NORMALS: no acute distress and patient oriented x3 Resp: COMMON NORMALS: normal respiratory effort OTHER: Bibasilar Rales with coarse sounds mostly at bases. Cardio: COMMON NORMALS: regular rate, regular rhythm and S2 normal heart sound present RATE: regular rate RHYTHM: regular rhythm HEART SOUNDS: S2 normal heart sound present OTHER: No lower extremity edema GI: COMMON NORMALS: Normal to inspection, nondistended, normoactive bowel sounds present, Soft to palpation and non-tender PALPATION: Yes Soft to palpation Neuro: COMMON NORMALS: patient oriented x3 and no focal motor deficits Data : 04/02/20 00:45 04/02/20 00:45 Micro: Microbiology 04/01/20 13:30 Blood Culture - Preliminary Blood SPECIMEN COLLECTED 04/01/20 13:15 Blood Culture - Preliminary Blood SPECIMEN COLLECTED A&P Assessment and plan (1) Community acquired pneumonia: Bibasilar. 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 Status: Acute (8) Acute respiratory failure with hypoxia: Status: Acute (9) Possible urinary tract infection: Status: Acute (10) Acute kidney injury: Prerenal with dehydration playing major role. Status: Acute (11) Non-ST elevation IL (NSTEMI): Present on admission Status: Acute Additional A&P Information PLAN: Awaiting echocardiogram. Discussed case with Dr. Richardson who will see patient in consultation. Continue current antibiotics. Continue therapeutic anticoagulation for now and monitor platelets and hemoglobin. Awaiting COVID-19 test. Attestations Medical Necessity Statement*: Patient with pneumonia as well as acute kidney injury and IL requires close ICU monitoring and treatment due to risk of deterioration. 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
[2020-04-02] MEDS: fluconazole 100 mg Tablet PO (09:40)
[2020-04-02] MEDS: hydroxychloroquine 200 mg Tablet PO ×2 (09:40→17:46)
[2020-04-02] MEDS: predniSONE 10 mg Tablet PO (09:40)
[2020-04-02] MEDS: gabapentin 300 mg Capsule PO ×2 (09:40→17:46)
[2020-04-02] MEDS: aspirin 81 mg Chew Tablet PO (09:41)
[2020-04-02] MEDS: pantoprazole DR 40 mg Tablet PO ×2 (09:41→17:46)
[2020-04-02] MEDS: sodium chloride 0.9% 1,000 ML 75 ML IV (09:41)
[2020-04-02] MEDS: enoxaparin 60 mg/0.6 mL Syringe 50 MG SUBCUT ×2 (12:38→23:10)
[2020-04-02] MEDS: cefTRIAXone 1,000 MG in sodium chloride 0.9% (plus) 50 ML 100 MG IV ×2 (12:39→23:10)
--- NOTE | 2020-04-02 14:59 | PC.OT ---
OT note: Awaiting COVID testing. Will hold at this time.
--- NOTE | 2020-04-02 15:23 | PC.NURSE ---
Post void bladder scan completed, showing 321 on the residual. Called being placed to MD for further instructions.
--- NOTE | 2020-04-02 16:56 | P.CONIM_ITS ---
Providers/Reason For Consult Consulting Physican/Specialty*: Dr. RAN Gooden /cardiology Reason for Consult*: Patient with elevated troponin T and pneumonia Attending Physician: Anders Adame MD Primary Care Provider: Meng Wu MD History of Present Illness History of Present Illness Lg Lund is a 79 year old male, is admitted to the hospital through the emergency room where he presented with complaints of shortness of breath and cough. The patient is not able to give any detailed history. The information is on the medical records, patient and also from the nursing staff. The patient apparently has not been feeling well for the last few days. He was found to be somewhat short of breath by his . He has been having a cough also for the last few days. He was found to have features of bilateral lower lobe pneumonia. His initial troponin T was within normal limits. The 6 of troponin T delta was 61.46. Cardiology consult is requested for further cardiac evaluation recommendations. Patient denies any chest pain or palpitation. He has no previous history for any coronary artery disease, myocardial infarction or congestive heart failure. He has a history of seropositive rheumatoid arthritis and has been on long-term steroids. He also is known to have some adrenal insufficiency from the halfway steroid use. 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 Following the surgery, patient developed left vocal cord paralysis for which he had prolaryn injection. His speech is somewhat better. Patient has some generalized emaciation. He has a history of tuberculosis of th e bone. He denies any other specific complaints Review of Systems Narrative: CONSTITUTIONAL: No fever or chills. EYES: No blurring of vision or other visual disturbances lately. ENT: No hoarseness of voice, auditory disturbances or sore throat. CARDIOVASCULAR: As mentioned above. RESPIRATORY: Cough and shortness of breath as mentioned above GASTROINTESTINAL: No hematemesis or melena. GENITOURINARY: History of UTI? INTEGUMENTARY: No skin rashes or history of skin cancer. NEURO: Left vocal cord paralysis PSYCHIATRIC: No history of psychosis or major depression. HEMATOLOGIC: No bleeding disorders or significant anemia. 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 History of lupus ALLERGY/IMMUNOLOGY: As mentioned above. Meds/Allergies Home Medications and Allergies Home Medications Medication Instructions Recorded Confirmed Last Taken Type diphenoxylate-atropine 2.5 1 tab PO DAILY PRN 09/18/19 04/01/20 Unknown History mg-0.025 mg tablet polyethylene glycol 3350 17 17 gm PO BID PRN 09/18/19 04/01/20 03/31/20 History gram/dose oral powder ethambutol 400 mg tablet 800 mg PO QDAY #60 tab 10/02/19 04/01/20 04/01/20 Rx aspirin [Aspirin Childrens] 81 mg PO DAILY 11/16/19 04/01/20 03/31/20 History cholecalciferol (vitamin D3) 50 50 mcg PO DAILY #90 cap 12/21/19 04/01/20 04/01/20 Rx mcg (2,000 unit) capsule vitamins A,C,I-ciya-qpslbz 7,160 1 tab PO DAILY tab 12/21/19 04/01/20 04/01/20 History unit-113 mg-100 unit tablet calcium carbonate-vitamin D3 1 tab PO DAILY 01/30/20 04/01/20 04/01/20 History [Calcium 600 + D(3)] fluconazole [Diflucan] 100 mg PO DAILY 01/30/20 04/01/20 01/29/20 History hydroxychloroquine 200 mg tablet 200 mg PO BID #60 tab 02/26/20 04/01/20 04/01/20 Rx pantoprazole 40 mg tablet,delayed 40 mg PO BID #60 tab 02/29/20 04/01/20 04/01/20 Rx release naloxone 4 mg/actuation nasal spray 4 mg INTRANASAL Q2M PRN #1 each 03/01/20 0 04/01/20 Unknown Rx gabapentin 300 mg capsule 300 mg PO BID 30 Days #60 cap 03/29/20 04/01/20 04/01/20 Rx hydromorphone 4 mg tablet 4 mg PO QID PRN 30 Days #120 tab 03/29/20 04/01/20 04/01/20 Rx prednisone 10 mg tablet 10 mg PO DAILY tab 03/29/20 04/01/20 04/01/20 History pediatric multivitamin no.42 1 tab PO DAILY 04/01/20 04/01/20 03/31/20 History [Children's Multivitamin] Allergies Allergy/AdvReac Type Severity Reaction Status Date / Time adhesive tape Allergy RASH Verified 04/01/20 12:34 Iodinated Contrast Media AdvReac ADR-Chest Verified 04/01/20 12:34 Pain Current Medications Current Medications Generic Name Dose Route Start Last Admin Trade Name Areli PRN Reason Stop Dose Admin Aspirin 81 mg 04/02/20 09:00 04/02/20 09:41 Aspirin Chewable PO 81 mg DAILY BYRON Administration Enoxaparin Sodium 50 mg 04/02/20 11:45 04/02/20 12:38 Lovenox 1 mg/kg (50 mg) 50 mg SUBCUT Administration Q12H BYRON Ethambutol HCl 800 mg 04/02/20 09:00 04/02/20 09:41 Myambutol PO 800 mg DAILY BYRON Administration Fluconazole 100 mg 04/02/20 09:00 04/02/20 09:40 Diflucan Tab PO 100 mg DAILY BYRON Administration Gabapentin 300 mg 04/02/20 09:00 04/02/20 09:40 Neurontin PO 300 mg BID BYRON Administration Hydroxychloroquine Sulfate 200 mg 04/02/20 09:00 04/02/20 09:40 Plaquenil PO 200 mg BID BYRON Administration Sodium Chloride 1,000 mls @ 75 mls/hr 04/01/20 19:00 04/02/20 09:41 Sodium Chloride 0.9% IV 75 mls/hr .[id number] BYRON Administration Ceftriaxone Sodium 1,000 mg/ 50 mls @ 100 mls/hr 04/01/20 23:00 04/02/20 13:54 Sodium Chloride IV Infused Q12H BYRON Infusion Protocol Pantoprazole Sodium 40 mg 04/02/20 09:00 04/02/20 09:41 Protonix PO 40 mg BID BYRON Administration Prednisone 10 mg 04/02/20 09:00 04/02/20 09:40 Prednisone PO 10 mg DAILY BYRON Administration Senna 17.2 mg 04/01/20 22:46 04/02/20 00:15 Senna Lax PO 17.2 mg BEDTIME BYRON Administration PFSH Acute PFSH: Medical History Degenerative lumbar spinal stenosis High risk medication use 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 Medication monitoring encounter Nontuberculous atypical mycobacterial disease Osteoporosis Pseudoaneurysm of carotid artery Rheumatoid arthritis with rheumatoid factor of multiple sites without organ or systems involvement Seropositive rheumatoid arthritis of multiple joints Surgical History History of back surgery History of knee replacement left on 10/12/16 and right on 12-05-16 Family History Other Hypertension Denies family history of Rheumatoid arthritis Diabetes CAD (coronary artery disease) Systemic lupus erythematosus (SLE) in adult Cancer Social History Smoking and tobacco status: former smoker Alcohol intake: former History of recent travel: No Vitals/I&O/Wt Last Vital Signs Temp 97.7 F 04/01/20 22:46 Pulse 64 04/02/20 14:00 Resp 17 04/02/20 14:00 BP 137/70 04/02/20 14:00 Pulse Ox 97 04/02/20 14:00 04/02/20 04/02/20 04/02/20 06:59 14:59 22:59 Intake Total 50 / 50 1600 / 1600 Output Total 250 / 250 250 / 500 Balance 50 / 50 1350 / 1350 -250 / 1100 Weight last 48 hrs Weight 115 lb Weight 115 lb Physical Exam Narrative: EXAM NARRATIVE: GENERAL: The patient is alert and oriented times three. Not in any acute distress. Generalized emaciation HEENT: Minimal pallor. No icterus or lymphadenopathy. The pupils are of equal size. Fundus is not visualized. NECK: Trachea appears to be central. No masses noted. No JVD or thyromegaly appreciated. No carotid bruit. The scar on the left side appears to have well- healed RESPIRATORY: Chest is symmetrical. No intercostals muscle retraction or any accessory muscle activation. There is no chest wall tenderness. Breath sounds are heard bilaterally. No rales or rhonchi heard. No evidence of any consolidation. Breath sounds are diminished at the bases. BREASTS: Deferred. HEART: The first and second heart sounds are normal. No S3 or S4. Short sy stolic murmur in the left sternal border. No diastolic murmurs. No pericardial rub. ABDOMEN: No vessel pulsations or distention. No tenderness. No organomegaly appreciated. No abdominal bruit. Bowel sounds are normally heard. : Deferred. RECTAL: Deferred. LYMPHATIC: No lymphadenopathy noted in the neck or groin. EXTREMITIES: No edema or cyanosis. Peripheral pulses are weak bilaterally. MUSCULOSKELETAL: No acute joint deformities or swelling. SKIN: There are no significant scars or skin rash noted. NEUROPSYCHIATRIC: The patient is alert and oriented x3. Somewhat hard of hearing. Appears to be in a good mood. The higher functions are grossly within normal limits. No tremors or rigidity noted. Data Labs: Other Labs: Laboratory Last Values WBC 8.9 10^3/uL (4.0- 10.0) 04/02/20 00:45 RBC 3.78 10^6/uL (4.1 -5.3) L 04/02/20 00:45 Hgb 11.1 g/dL (11.7-1 6.6) L 04/02/20 00:45 Hct 36.3 % (42.0-52.0 ) L 04/02/20 00:45 MCV 96.0 fL (80-94) H 04/02/20 00:45 MCH 29.4 pg (28.0-34. 0) 04/02/20 00:45 MCHC 30.6 g/dL (30.0-3 6.0) 04/02/20 00:45 RDW 14.8 % (12.1-15.1 ) 04/02/20 00:45 Plt Count 169 10^3/cmm (130 -400) 04/02/20 00:45 MPV 9.6 fL (7.4-10.4) 04/02/20 00:45 Neut % (Auto) 90.0 % 04/02/20 00:45 Lymph % (Auto) 6.2 % 04/02/20 00:45 [place] % (Auto) 1.9 % 04/02/20 00:45 Eos % (Auto) 0.2 % 04/02/20 00:45 Baso % (Auto) 0.3 % 04/02/20 00:45 Neut # (Auto) 7.96 10^3/uL (1.8 -7.7) H 04/02/20 00:45 Lymph # (Auto) 0.6 10^3/uL (0.8- 4.8) L 04/02/20 00:45 [place] # (Auto) 0.2 10^3/uL (0.2- 0.9) 04/02/20 00:45 Eos # (Auto) 0.0 10^3/uL (0.0- 0.8) 04/02/20 00:45 Baso # (Auto) 0.0 10^3/uL (0.0- 0.1) 04/02/20 00:45 Nucleated RBC % (a uto) 0 % 04/02/20 00:45 Nucleated RBCs # 0.0 /100WBC 04/02/20 00:45 ESR 55 mm/hr (0-10) H 04/01/20 13:15 D-Dimer 2.38 ug/mIFEU (0- 0.59) H 04/02/20 00:45 Sodium 135 mmol/L (136-1 45) L 04/02/20 00:45 Potassium 4.6 mmol/L (3.5-5 .1) 04/02/20 00:45 Chloride 103 mmol/L (98-10 7) 04/02/20 00:45 Carbon Dioxide 23 mmol/L (22-29) 04/02/20 00:45 Anion Gap 13.6 (5-19) 04/02/20 00:45 BUN 37 mg/dL (8-23) H 04/02/20 00:45 Creatinine 1.9 mg/dL (0.7-1. 2) H 04/02/20 00:45 GFR Calculation Not Reportable 04/02/20 00:45 Glucose 96 mg/dL (65-115) 04/02/20 00:45 Calculated Osmolal ity 277 mOsm/kg (285- 295) L 04/02/20 00:45 Lactic Acid 0.9 mmol/L (0.5-2 .2) 04/01/20 00:45 Calcium 8.3 mg/dL (8.5-10 .5) L 04/02/20 00:45 Magnesium 2.1 mg/dL (1.7-2. 3) 04/01/20 13:15 Total Bilirubin 1.1 mg/dL (0.15-1 .2) 04/02/20 00:45 AST 35 U/L (0-40) 04/02/20 00:45 ALT 25 U/L (0-41) 04/02/20 00:45 Alkaline Phosphata se 79 IU/L (40-130) 04/02/20 00:45 Creatine Kinase 195 U/L (39-308) 04/01/20 19:13 Troponin T Baselin e 7 ng/L (0-15) 04/01/20 19:13 Troponin T 120 Min fabian 78.61 ng/L (0-15) H 04/01/20 20:47 Delta Troponin T 71.61 ABS# (0-10) H* 04/01/20 20:47 Troponin T Hi Sens 6Hr 68.46 ng/L (0-15) H 04/02/20 00:45 Troponin T Hi Sens 6Hr Delta 61.46 ng/L (0-12) H* 04/02/20 00:45 C-Reactive Protein 145.3 mg/L (0.0-4 .9) H 04/01/20 13:15 Total Protein 5.5 g/dL (6.6-8.7 ) L 04/02/20 00:45 Albumin 2.7 g/dL (3.5-5.2 ) L 04/02/20 00:45 Globulin 2.8 g/dL (1.3-4.6 ) 04/02/20 00:45 Urine Color Dark yellow (Yel low) 04/01/20 13:00 Urine Appearance Sl hazy (CLEAR) 04/01/20 13:00 Urine pH 5 (5-7) 04/01/20 13:00 Ur Specific Gravit y 1.025 (1.005-1.0 30) 04/01/20 13:00 Urine Protein 1+ (Negative) H 04/01/20 13:00 Urine Glucose (UA) 1+ (Normal) 04/01/20 13:00 Urine Ketones 1+ (Negative) H 04/01/20 13:00 Urine Blood 3+ (Negative) H 04/01/20 13:00 Urine Nitrate Negative (Negati ve) 04/01/20 13:00 Urine Bilirubin 1+ (NEGATIVE) H 04/01/20 13:00 Urine Urobilinogen 1 mg/dL (Negative ) H 04/01/20 13:00 Ur Leukocyte Noreen ase 1+ (Negative) H 04/01/20 13:00 Urine RBC 0-4 /hpf (0-2) H 04/01/20 13:00 Urine WBC 5-10 /hpf (0-5) H 04/01/20 13:00 Ur Squamous Epith Cells None (0-5) 04/01/20 13:00 Amorphous Sediment Not Reportable 04/01/20 13:00 Urine Bacteria 2+ (NONE) H 04/01/20 13:00 Hyaline Casts 5-10 H 04/01/20 13:00 Fine Granular Cast s 0-4 /lpf H 04/01/20 13:00 Coarse Granular Ca sts 0-4 /lpf H 04/01/20 13:00 Urine Mucus 1+ 04/01/20 13:00 Micro: Micro: Microbiology 04/01/20 13:30 Blood Culture - Pr eliminary Blood NEGATIVE TO CALEB E 04/01/20 13:15 Blood Culture - Pr eliminary Blood NEGATIVE TO CALEB E Imaging^: CT Chest: My impression: There is consolidation in the bilateral lower lobes of the lung consistent with atelectasis and/or pneumonia. There is lung emphysema. CXR: My impression: Normal cardiac silhouette with no lung infiltrates. No acute pathology noted. EKG^: EKG 1: My Interpretation: EKG revealed possible ectopic atrial rhythm, left axis deviation. Possible old inferior wall myocardial infarction. Right ventricular conduction delay. EKG 2: My Interpretation: The EKG revealed a sinus rhythm with left axis deviation. Nonspecific ST changes in the anterolateral leads. Possible old high lateral wall WI. A&P Assessment and plan (1) Non-ST elevation WI (NSTEMI): Patient's clinical features may assist non-ST elevation myocardial infarction. Apparently has no chest pain or any specific cardiac symptoms at this time. He has no previous history for any coronary artery disease or myocardial infarction. For further evaluation of his cardiac status, we may do an echocardiogram. He may be treated with subcu Lovenox, beta-clemencia, aspirin and Plavix. I may give him 300 mg of Plavix p.o. now followed by 75 mg p.o. daily. After reviewing the echocardiogram and also the patient's clinical progress, further recommendations will be made. His lipid profile is not known. I may go ahead and order for lipid profile, to be done on the blood in the lab. Status: Acute (2) Acute kidney injury: Patient was somewhat hypotensive at the time of admission. Most likely the hypotension might have caused some acute kidney injury. Need to be closely monitoring with careful IV hydration. Status: Acute (3) Community acquired pneumonia: It is possible that the patient may have aspiration pneumonia especially in view of the vocal cord paralysis. Further evaluation and management as per the primary care. Status: Acute Qualifiers: Laterality: right Lung location: lower lobe of lung Qualified Code(s): J18.9 - Pneumonia, unspecified organism (4) Elevated blood pressure reading: I may start the patient on a low-dose of beta-clemencia namely metoprolol 25 mg p.o. twice daily. He may be kept on the current medications as it is. 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 Thank you for the opportunity to eval this patient make these recommendations. I discussed my evaluation and findings with Dr. Adame. 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
[2020-04-02] MEDS: levofloxacin-dextrose 5 % 750 MG/150 ML PREMIX 100 MG IV (17:46)
[2020-04-02] MEDS: clopidogrel 300 mg Tablet PO (19:11)
[2020-04-02 20:32] LABS: Coronavirus Lab Test PTC Negative
--- NOTE | 2020-04-02 22:46 | USCV_ITS ---
Lg Lund Age: 79 Gender: M : 1940 Exam Date: 04/02/2020 06:23 Ordering Phys: Anders Adame MD Technologist: Umberto Brown Exam Location: [facility] [place]ication: ACUTE RESPIRATORY FAILURE BP: 121 / 70 HR: 63 Rhythm: Sinus Technical Quality: MEASUREMENTS (Male / Female) Normal Values 2D ECHO LV Diastolic Diameter PLAX 2.7 cm 4.2 - 5.9 / 3.9 - 5.3 cm LV Systolic Diameter PLAX 2.2 cm IVS Diastolic Thickness 0.9 cm 0.6 - 1.0 / 0.6 - 0.9 cm IVS Systolic Thickness 1.2 cm LVPW Diastolic Thickness 1.3 cm 0.6 - 1.0 / 0.6 - 0.9 cm LVPW Systolic Thickness 1.1 cm LVOT Diameter 2.1 cm LV Ejection Fraction 2D Teich 39.6 % LV Ejection Fraction MOD 2C 68.1 % LV Ejection Fraction 2C AL 68.1 % LA Diameter 4.5 cm LA Width 3.7 cm LA Height 4.2 cm RA Width 3.1 cm RA Height 4.5 cm Aorta at Sinotubular Diameter 4.1 cm M-MODE LV Diastolic Diameter MM 3.6 cm 4.2 - 5.9 / 3.9 - 5.3 cm LV Systolic Diameter MM 2.7 cm LV Ejection Fraction MM Teich 49.5 % IVS Diastolic Thickness MM 1.0 cm 0.6 - 1.0 / 0.6 - 0.9 cm IVS Systolic Thickness MM 1.2 cm LVPW Diastolic Thickness MM 0.9 cm 0.6 - 1.0 / 0.6 - 0.9 cm LVPW Systolic Thickness MM 2.0 cm RV Diastolic Diameter MM 1.5 cm Aortic Annulus Diameter 4.1 cm LA Ao Ratio MM 1.1 MV E Point Septal Separation 1.3 cm DOPPLER AV Peak Velocity 106.0 cm/s LVOT Peak Velocity 77.0 cm/s AV Area Cont Eq vti 3.0 cm squared AV Area Cont Eq pk 2.5 cm squared MV Area PHT 2.4 cm squared Mitral E to A Ratio 0.7 MV E' Velocity 7.0 cm/s Mitral E to MV E' Ratio 8.1 Mitral E to LV E' Lateral Ratio 7.8 Mitral E to LV E' Septal Ratio 8.5 TR Peak Velocity 151.0 cm/s TR Peak Gradient 9.1 mmHg TV Peak E Velocity 92.0 cm/s Right Atrial Pressure 3.0 mmHg Pulmonary Artery Systolic Pressu 12.1 mmHg FINDINGS Left Ventricle Mild diffuse hypokinesia of the septum, anteroseptal and inferior wall segments. LV ejection fraction around 50-50 %.Grade I/IV diastolic dysfunction (abnormal relaxation filling pattern), normal to mildly elevated filling pressures. Right Ventricle The right ventricle is normal in size and function. Right Atrium The right atrium is normal in size. Left Atrium Mildly increased left atrial size. Mitral Valve Thickened mitral valve. Moderate mitral annular calcification. Trace mitral valve regurgitation. Aortic Valve Thickened aortic valve. Tricuspid Valve Could not be visualized well Pulmonic Valve Pulmonic valve not well visualized. Pericardium Normal pericardium without effusion. Aorta Plaque seen in the ascending aorta. CONCLUSIONS Mild diffuse hypokinesia of the septum, anteroseptal and inferior wall segments. LV ejection fraction around 50-50 %. Grade I/IV diastolic dysfunction (abnormal relaxation filling pattern), normal to mildly elevated filling pressures. Thickened mitral valve. Moderate mitral annular calcification. Trace mitral valve regurgitation. Thickened aortic valve. Plaque seen in the ascending aorta. Mildly increased left atrial size. Technically difficult study because of the poor ultrasonic window. No previous study is available for comparison. Dr Jacinto Gooden MD FAC (Electronically Signed) Final Date: 02 April 2020 23:31 S
[2020-04-02] MEDS: polyethylene glycol 3350 Pkt 17 gm PO (23:40)
[2020-04-03] VITALS (26 sets, daily range): BP systolic 80–163; BP diastolic 51–100; PULSE 64–95; RESP 14–29; TEMP 36.2–36.9; O2SAT 72–100
[2020-04-03] MEDS: sodium chloride 0.9% 1,000 ML 75 ML IV ×2 (00:30→16:30)
[2020-04-03 04:19] LABS: Basophils % 0.2 %; Hematocrit 32.3 % (42.0-52.0); Hemoglobin 10.1 g/dL (11.7-16.6); Lymphocytes # 0.6 10^3/uL (0.8-4.8); Lymphocytes % 6.2 %; Mean Corpuscular HGB Conc 31.3 g/dL (30.0-36.0); Mean Corpuscular Hemoglobin 29.4 pg (28.0-34.0); Mean Corpuscular Volume 93.9 fL (80-94); Mean Platelet Volume 10.2 fL (7.4-10.4); Monocytes # 0.6 10^3/uL (0.2-0.9); Neutrophils # 8.75 10^3/uL (1.8-7.7); Neutrophils % 85.4 %; Nucleated Red Blood Cells % 0 %; Platelet Count 190 10^3/cmm (130-400); Red Blood Count 3.44 10^6/uL (4.1-5.3); Red Cell Distribution Width 14.6 % (12.1-15.1); White Blood Count 10.3 10^3/uL (4.0-10.0)
[2020-04-03 04:46] LABS: Alanine Aminotransferase 21 U/L (0-41); Albumin Level 2.6 g/dL (3.5-5.2); Alkaline Phosphatase 68 IU/L (40-130); Anion Gap 12.5 (5-19); Aspartate Amino Transferase 30 U/L (0-40); Blood Urea Nitrogen 25 mg/dL (8-23); Calcium 8.6 mg/dL (8.5-10.5); Carbon Dioxide 22 mmol/L (22-29); Chloride 110 mmol/L (98-107); Globulin 2.2 g/dL (1.3-4.6); Glucose 78 mg/dL (65-115); Osmolality Calculated 288 mOsm/kg (285-295); Potassium 3.5 mmol/L (3.5-5.1); Sodium 141 mmol/L (136-145); Total Bilirubin 0.4 mg/dL (0.15-1.2); Total Protein 4.8 g/dL (6.6-8.7)
[2020-04-03] MEDS: fluconazole 100 mg Tablet PO (09:03)
[2020-04-03] MEDS: hydroxychloroquine 200 mg Tablet PO ×2 (09:03→17:26)
[2020-04-03] MEDS: gabapentin 300 mg Capsule PO ×2 (09:03→17:26)
[2020-04-03] MEDS: pantoprazole DR 40 mg Tablet PO ×2 (09:04→17:26)
[2020-04-03] MEDS: aspirin 81 mg Chew Tablet PO (09:04)
[2020-04-03] MEDS: predniSONE 10 mg Tablet PO (09:04)
[2020-04-03] MEDS: clopidogrel 75 mg Tablet PO (09:04)
--- NOTE | 2020-04-03 09:11 | USCV_ITS ---
Lg Lund Age: 79 Gender: M : 1940 Exam Date: 04/03/2020 09:24 Ordering Phys: Jacinto Gooden MD ([email or web address]) Technologist: Kirsten Ragland [place] [facility] [place]: BP: 110 / 60 HR: 87 Rhythm: Sinus Technical Quality: Adequate MEASUREMENTS (Male / Female) Normal Values 2D ECHO LV Diastolic Diameter PLAX 5.2 cm 4.2 - 5.9 / 3.9 - 5.3 cm LV Systolic Diameter PLAX 2.0 cm LV Chamber Size 3.5 cm IVS Diastolic Thickness 0.8 cm 0.6 - 1.0 / 0.6 - 0.9 cm IVS Systolic Thickness 1.2 cm LVPW Diastolic Thickness 0.7 cm 0.6 - 1.0 / 0.6 - 0.9 cm LVPW Systolic Thickness 1.3 cm RV Chamber Size 2.4 cm LVOT Diameter 2.1 cm LV Ejection Fraction 2D Teich 89.9 % LV Ejection Fraction MOD 2C 51.0 % LV Ejection Fraction 2C AL 49.6 % LA Diameter 4.3 cm LA Width 4.0 cm LA Height 2.9 cm RA Width 2.7 cm RA Height 3.8 cm Aorta at Sinotubular Diameter 3.3 cm M-MODE LV Diastolic Diameter MM 5.2 cm 4.2 - 5.9 / 3.9 - 5.3 cm LV Systolic Diameter MM 3.4 cm LV Ejection Fraction MM Teich 62.9 % IVS Diastolic Thickness MM 1.2 cm 0.6 - 1.0 / 0.6 - 0.9 cm IVS Systolic Thickness MM 1.5 cm LVPW Diastolic Thickness MM 1.1 cm 0.6 - 1.0 / 0.6 - 0.9 cm LVPW Systolic Thickness MM 1.9 cm RV Diastolic Diameter MM 1.4 cm Aortic Annulus Diameter 3.9 cm LA Ao Ratio MM 1.1 DOPPLER AV Peak Velocity 103.0 cm/s LVOT Peak Velocity 101.0 cm/s AV Area Cont Eq vti 2.6 cm squared AV Area Cont Eq pk 3.3 cm squared MV Area PHT 5.5 cm squared Mitral E to A Ratio 0.7 MV E' Velocity 10.0 cm/s Mitral E to MV E' Ratio 6.0 Mitral E to LV E' Lateral Ratio 5.2 Mitral E to LV E' Septal Ratio 7.2 TR Peak Velocity 118.8 cm/s TR Peak Gradient 5.6 mmHg TR Mean Velocity 77.4 cm/s TR Mean Gradient 3.0 mmHg TR Velocity Time Integral 29.7 cm TV Peak E Velocity 80.0 cm/s Right Atrial Pressure 3.0 mmHg Pulmonary Artery Systolic Pressu 8.6 mmHg PV Peak Velocity 77.0 cm/s RV Acceleration Time 0.2 s RV Ejection Time 0.4 s RV AcT/ET 0.5 FINDINGS Left Ventricle Normal left ventricular size and systolic function, EF 55%. Grade I/IV diastolic dysfunction (abnormal relaxation filling pattern), normal to mildly elevated filling pressures. Right Ventricle The right ventricle is normal in size and function. Right Atrium The right atrium is normal in size. Left Atrium The left atrium is normal in size. Mitral Valve Thickened mitral valve. Aortic Valve Thickened aortic valve. Tricuspid Valve No gross abnormalities noted Pulmonic Valve No gross abnormalities noted Pericardium Normal pericardium without effusion. Aorta Normal ascending aorta dimension. CONCLUSIONS Normal left ventricular size and systolic function, EF 55%. Grade I/IV diastolic dysfunction (abnormal relaxation filling pattern), normal to mildly elevated filling pressures. Thickened aortic valve. Thickened mitral valve. There is no pericardial effusion. There are no intracardiac masses. No previous study is available for comparison. Dr Jacinto Gooden MD [facility] (Electronically Signed) Final Date: 04 April 2020 00:16 S
--- NOTE | 2020-04-03 10:45 | PM.PN ---
Subjective Subjective: Interval history: Patient reports feeling better this morning. Denies shortness of breath or chest pain. His echocardiogram shows some concerning wall motion abnormalities. White blood cell count slightly up and felt to be related to IV steroids he received on admission. Vitals/I&O/Wt Last Vital Signs Temp 97.2 F L 04/03/20 07:00 Pulse 84 04/03/20 10:00 Resp 24 H 04/03/20 10:00 BP 126/74 04/03/20 10:00 Pulse Ox 96 04/03/20 10:00 04/02/20 04/03/20 04/03/20 22:59 06:59 14:59 Intake Total 200 / 1800 1050 / 2850 340 / 340 Output Total 900 / 1150 1100 / 2250 500 / 500 Balance -700 / 650 -50 / 600 -160 / -160 Weight last 48 hrs Weight 52.844 kg Weight 52.163 kg Weight 52.163 kg Physical Exam Const: COMMON NORMALS: no acute distress and patient oriented x3 Resp: COMMON NORMALS: normal respiratory effort and clear to auscultation bilaterally AUSCULTATION: clear to auscultation bilaterally Cardio: COMMON NORMALS: regular rate, regular rhythm and S2 normal heart sound present RATE: regular rate RHYTHM: regular rhythm HEART SOUNDS: S2 normal heart sound present OTHER: No lower extremity edema GI: COMMON NORMALS: Normal to inspection, nondistended, normoactive bowel sounds present, Soft to palpation and non-tender PALPATION: Yes Soft to palpation Neuro: COMMON NORMALS: patient oriented x3 and no focal motor deficits Data : 04/03/20 03:35 04/03/20 03:35 Micro: Microbiology 04/01/20 13:00 Urine Culture - Preliminary Urine,Clean Catch 04/01/20 13:30 Blood Culture - Preliminary Blood NEGATIVE TO DATE 04/01/20 13:15 Blood Culture - Preliminary Blood NEGATIVE TO DATE A&P Assessment and plan (1) Community acquired pneumonia: Bibasilar. 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 Status: Acute (8) Acute respiratory failure with hypoxia: Status: Acute (9) Possible urinary tract infection: Status: Acute (10) Acute kidney injury: Prerenal with dehydration playing major role. Status: Acute (11) Non-ST elevation NE (NSTEMI): Present on admission Status: Acute Additional A&P Information PLAN: Discussed with Dr. Gooden. We will transfer patient out of ICU and continue current treatment. Patient wants to go home and we may need to plan further evaluation at later time. Patient understands importance of appropriate evaluation. Attestations Medical Necessity Statement*: Patient with NE and possible aspiration pneumonia requires close inpatient monitoring and treatment will deemed safe for discharge. 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
[2020-04-03] MEDS: enoxaparin 60 mg/0.6 mL Syringe 50 MG SUBCUT ×2 (11:46→22:49)
[2020-04-03] MEDS: cefTRIAXone 1,000 MG in sodium chloride 0.9% (plus) 50 ML 100 MG IV ×2 (11:46→22:33)
--- NOTE | 2020-04-03 12:51 | PC.RESP ---
PATIENT DOES NOT HAVE A QUALIFYING HX OF LUNG DISEASE AND DOES NOT QUALIFY FOR PULMONARY REHAB AT THIS TIME.
[2020-04-03] MEDS: ondansetron 2 mg/ML SDV 2 mL 4 MG IVP (16:31)
--- NOTE | 2020-04-03 18:39 | P.PN_ITS ---
Subjective Subjective: Interval history: Patient is mainly complaining of low back pain. Has some cough and shortness of breath. COVID-19 is tested negative. Complaining of constipation. No chest pain or palpitation. No dizziness or syncopal episodes. Medications: Reviewed: Yes Medication Review Details: Current Medications Albuterol Sulfate (Ventolin) 2 puff INHALATION Q4H.RESPIRATORY PRN PRN Reason: SHORTNESS OF BREATH Aspirin (Aspirin Chewable) 81 mg PO DAILY COUNT INCLUDES THE [facility] Last Admin: 04/03/20 09:04 Dose: 81 mg Documented by: Clopidogrel Bisulfate (Plavix) 75 mg PO DAILY COUNT INCLUDES THE [facility] Last Admin: 04/03/20 09:04 Dose: 75 mg Documented by: Enoxaparin Sodium (Lovenox) 50 mg 1 mg/kg (50 mg) SUBCUT Q12H COUNT INCLUDES THE [facility] Last Admin: 04/03/20 11:46 Dose: 50 mg Documented by: Ethambutol HCl (Myambutol) 800 mg PO DAILY COUNT INCLUDES THE [facility] Last Admin: 04/03/20 09:03 Dose: 800 mg Documented by: Fluconazole (Diflucan Tab) 100 mg PO DAILY COUNT INCLUDES THE [facility] Last Admin: 04/03/20 09:03 Dose: 100 mg Documented by: Gabapentin (Neurontin) 300 mg PO BID COUNT INCLUDES THE [facility] Last Admin: 04/03/20 17:26 Dose: 300 mg Documented by: Hydromorphone HCl (Dilaudid Tab) 4 mg PO QID PRN PRN Reason: pain Last Admin: 04/03/20 09:03 Dose: 4 mg Documented by: Hydroxychloroquine Sulfate (Plaquenil) 200 mg PO BID COUNT INCLUDES THE [facility] Last Admin: 04/03/20 17:26 Dose: 200 mg Documented by: Sodium Chloride (Sodium Chloride 0.9%) 1,000 mls @ 75 mls/hr IV .G20N03L COUNT INCLUDES THE [facility] Last Admin: 04/03/20 16:30 Dose: 75 mls/hr Documented by: Ceftriaxone Sodium 1,000 mg/ (Sodium Chloride) 50 mls @ 100 mls/hr IV Q12H COUNT INCLUDES THE [facility]; Protocol Last Admin: 04/03/20 11:46 Dose: 100 mls/hr Documented by: Non-Formulary Medication (Pediatric Multivitamin No.42 [Children's Mul tivitamin]) 1 tab PO DAILY COUNT INCLUDES THE [facility] Non-Formulary Medication (Vitamins A,C,C-Zdhd-Drbcds [Preservision Areds]) 1 tab PO DAILY COUNT INCLUDES THE [facility] Ondansetron HCl (Zofran) 4 mg IVP Q6H PRN PRN Reason: NAUSEA AND VOMITING Last Admin: 04/03/20 16:31 Dose: 4 mg Documented by: Pantoprazole Sodium (Protonix) 40 mg PO BID COUNT INCLUDES THE [facility] Last Admin: 04/03/20 17:26 Dose: 40 mg Documented by: Polyethylene Glycol (Miralax) 17 gm PO BID PRN PRN Reason: Constipation Last Admin: 04/02/20 23:40 Dose: 17 gm Documented by: Prednisone (Prednisone) 10 mg PO DAILY COUNT INCLUDES THE [facility] Last Admin: 04/03/20 09:04 Dose: 10 mg Documented by: Senna (Senna Lax) 17.2 mg PO BEDTIME COUNT INCLUDES THE [facility] Last Admin: 04/02/20 21:29 Dose: 17.2 mg Documented by: Vitals/I&O/Wt Last Vital Signs Temp 97.8 F 04/03/20 16:00 Pulse 95 04/03/20 17:00 Resp 15 04/03/20 16:00 BP 87/51 04/03/20 17:00 Pulse Ox 93 04/03/20 17:00 04/03/20 04/03/20 04/03/20 06:59 14:59 22:59 Intake Total 1050 / 2850 1340 / 1340 240 / 1580 Output Total 1100 / 2250 700 / 700 650 / 1350 Balance -50 / 600 640 / 640 -410 / 230 Weight last 48 hrs Weight 116 lb 8 oz Weight 115 lb Physical Exam Narrative: EXAM NARRATIVE: GENERAL: The patient is alert and oriented times three. Not in any acute distress. Generalized emaciation HEENT: Minimal pallor. No icterus or lymphadenopathy. The pupils are of equal size. Fundus is not visualized. NECK: Trachea appears to be central. No masses noted. No JVD or thyromegaly appreciated. No carotid bruit. The scar on the left side appears to have well- healed RESPIRATORY: Chest is symmetrical. No intercostals muscle retraction or any accessory muscle activation. There is no chest wall tenderness. Sounds are diminished bilaterally at the bases. Few coarse crackles. BREASTS: Deferred. HEART: The first and second heart sounds are normal. No S3 or S4. Short systolic murmur in the left sternal border. No diastolic murmurs. No pericardial rub. ABDOMEN: No vessel pulsations or distention. No tenderness. No organomegaly appreciated. No abdominal bruit. Bowel sounds are normally heard. : Deferred. RECTAL: Deferred. LYMPHATIC: No lymphadenopathy noted in the neck or groin. EXTREMITIES: No edema or cyanosis. Peripheral pulses are weak bilaterally. MUSCULOSKELETAL: No acute joint deformities or swelling. SKIN: There are no significant scars or skin rash noted. NEUROPSYCHIATRIC: The patient is alert and oriented x3. Somewhat hard of he aring. Appears to be in a good mood. The higher functions are grossly within normal limits. No tremors or rigidity noted. Data : 04/04/20 03:50 04/04/20 03:50 Micro: Microbiology 04/01/20 13:00 Urine Culture - Preliminary Urine,Clean Catch Echo: My impression: Mild diffuse hypokinesia of the septum, anteroseptal and inferior wall segments. LV ejection fraction around 50-50 %. Grade I/IV diastolic dysfunction (abnormal relaxation filling pattern), normal to mildly elevated filling pressures. Thickened mitral valve. Moderate mitral annular calcification. Trace mitral valve regurgitation. Thickened aortic valve. Plaque seen in the ascending aorta. Mildly increased left atrial size. Technically difficult study because of the poor ultrasonic window. No previous study is available for comparison. A&P Assessment and plan (1) Non-ST elevation SD (NSTEMI): For further evaluation of the patient's coronary status, he may benefit from a cardiac catheterization. Echocardiogram findings were discussed with the patient. Patient is not wanting to go undergo any invasive procedures at this time. He is wanting to go home and may consider the angiogram later on. He seems to be understanding implications. Status: Acute (2) Acute kidney injury: The kidney function seems to be getting stabilized. Status: Resolved (3) Community acquired pneumonia: Remaining afebrile. He is on IV antibiotics. He is being evaluated for possible aspiration pneumonia Status: Acute Qualifiers: Laterality: right Lung location: lower lobe of lung Qualified Code(s): J18.9 - Pneumonia, unspecified organism (4) Elevated blood pressure reading: Patient is currently somewhat hypotensive. I may hold off on any antihypertensive medications at this time. 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 We may go ahead and do a lipid profile on the blood in the lab. Based on the results, need for the lipid-lo wering insulin be decided. For the time being, the plan is to optimize medical treatment. Based on the clinical progress, further recommendations will be made. 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
[2020-04-03 19:42] LABS: Chol HDL Ratio 3.47 mg/dL (1.0-5.00); Cholesterol 111 mg/dL (0-200); HDL Cholesterol 32 mg/dL (60-100); LDL Cholesterol Calculated 57 mg/dL (50-129); LDL HDL Ratio 1.78 RATIO (0.00-3.22); Triglycerides 109 mg/dL (0-150)
[2020-04-03] MEDS: sennosides 8.6 mg Tablet 17.2 MG PO (21:12)
[2020-04-04] VITALS (20 sets, daily range): BP systolic 80–174; BP diastolic 50–149; PULSE 77–118; RESP 15–28; TEMP 36.3–36.6; O2SAT 86–100
[2020-04-04 04:06] LABS: Basophils % 0.4 %; Hematocrit 33.4 % (42.0-52.0); Hemoglobin 10.1 g/dL (11.7-16.6); Lymphocytes # 0.8 10^3/uL (0.8-4.8); Lymphocytes % 11.4 %; Mean Corpuscular HGB Conc 30.2 g/dL (30.0-36.0); Mean Corpuscular Hemoglobin 29.2 pg (28.0-34.0); Mean Corpuscular Volume 96.5 fL (80-94); Mean Platelet Volume 9.7 fL (7.4-10.4); Monocytes # 0.4 10^3/uL (0.2-0.9); Neutrophils # 5.63 10^3/uL (1.8-7.7); Neutrophils % 76.8 %; Nucleated Red Blood Cells % 0 %; Platelet Count 181 10^3/cmm (130-400); Red Blood Count 3.46 10^6/uL (4.1-5.3); Red Cell Distribution Width 15.2 % (12.1-15.1); White Blood Count 7.3 10^3/uL (4.0-10.0)
[2020-04-04 04:19] LABS: Alanine Aminotransferase 21 U/L (0-41); Albumin Level 2.3 g/dL (3.5-5.2); Alkaline Phosphatase 61 IU/L (40-130); Anion Gap 11.7 (5-19); Aspartate Amino Transferase 30 U/L (0-40); Blood Urea Nitrogen 21 mg/dL (8-23); Calcium 7.9 mg/dL (8.5-10.5); Carbon Dioxide 20 mmol/L (22-29); Chloride 111 mmol/L (98-107); Globulin 2.3 g/dL (1.3-4.6); Glucose 56 mg/dL (65-115); Osmolality Calculated 282 mOsm/kg (285-295); Potassium 3.7 mmol/L (3.5-5.1); Sodium 139 mmol/L (136-145); Total Bilirubin 0.4 mg/dL (0.15-1.2); Total Protein 4.6 g/dL (6.6-8.7)
[2020-04-04 05:12] LABS: Slide Review Slide Review Perform
--- NOTE | 2020-04-04 08:30 | PC.SOCIAL ---
IMM Page 2 of IMM explained to patient. Initialed, dated and timed and placed in chart. Copy provided to patient.
--- NOTE | 2020-04-04 09:04 | P.DS_ITS ---
Discharge Providers Date of Admission: 04/01/20 18:45 Date of Discharge: April 04, 2020 Attending Provider at Admission: Anders Adame MD Attending Provider at Discharge: Anders Adame MD Primary Care Provider: Meng Wu MD Diagnoses at Discharge Discharge Diagnosis (1) Non-ST elevation MA (NSTEMI): Status: Acute (2) Acute kidney injury: Status: Acute Problem details: Improved, prerenal (3) Community acquired pneumonia: Status: Acute Problem details: Most likely secondary to aspiration pneumonia Qualifiers: Laterality: right Lung location: lower lobe of lung Qualified Code(s): J18.9 - Pneumonia, unspecified organism (4) Elevated blood pressure reading: Status: Acute (5) Oropharyngeal dysphagia: Status: Acute Problem details: Patient has vocal cord dysfunction. Reason for Visit Reason for Visit: POSS PNEUMONIA, SOB Hospital Course Discharge Summary: Patient with underlying vocal cord dysfunction and long history of rheumatoid arthritis presented with shortness of breath and cough. He was diagnosed with oropharyngeal dysphagia and pneumonia which felt likely to be aspiration pneumonia. Patient had evidence of non-ST elevation MA and acute kidney injury. He was treated with antibiotic and IV fluids and gradually improved and this morning reports feeling better and wants to go home. Patient was seen by cardiology service and started on Plavix. Plan to proceed with outpatient evaluation once pneumonia improves versus continuing medical treatment. He does not want to consider intermediate facility for rehabilitation. His also does not want patient to go to the nursing facility and wants him to come back home. She helps him on daily basis. He is usually requires help to get up from the bed and transfer to electric chair. Home health will be requested for physical and speech therapy. Patient is aware of high risk of aspiration but does not want to proceed with feeding tube placement which may not really help to prevent aspiration pneumonia. Patient is at risk for worsening kidney function due to decreased oral intake and I will request lab work in several days prior to primary care physician follow-up. I will request home O2 evaluation prior to discharge. Overall patient appears to have poor long-term prognosis. Physical Exam Const: COMMON NORMALS: no acute distress and patient oriented x3 Resp: COMMON NORMALS: normal respiratory effort OTHER: Very minimal bibasilar Rales. Cardio: COMMON NORMALS: regular rate, regular rhythm and S2 normal heart sound present RATE: regular rate RHYTHM: regular rhythm HEART SOUNDS: S2 normal heart sound present OTHER: No lower extremity edema GI: COMMON NORMALS: Normal to inspection, nondistended, normoactive bowel sounds present, Soft to palpation and non-tender PALPATION: Yes Soft to palpation Neuro: COMMON NORMALS: patient oriented x3 and no focal motor deficits Discharge Data Data Completed and Pending: Completed Studies During Hospitalization Category Date Time Status CT angio chest PE protcl [id number] Stat Cat Scan 04/01/20 14:[address] lumbar spine w con [id number] Urgent Cat Scan 04/01/20 14:14 Completed XR chest 1V noemy ble [id number] Stat Exams 04/01/20 12:40 Completed CV echo complete* [id number] Routine Ultrasound 04/02/20 22:46 Completed CV echo complete* [id number] Routine Ultrasound 04/03/20 09:11 Completed Pending at discharge Category Date Time Status Blood Culture Sta t Lab 04/01/20 13:30 Results Sputum Culture an d Gram Stain Routi ne Lab 04/01/20 22:46 Uncollected Labs from last 24 hours 04/04/20 04/04/20 04/03/20 03:50 03:50 03:35 WBC 7.3 RBC 3.46 L Hgb 10.1 L Hct 33.4 L MCV 96.5 H MCH 29.2 MCHC 30.2 RDW 15.2 H Plt Count 181 MPV 9.7 Neut % (Auto) 76.8 Lymph % (Auto) 11.4 [place] % (Auto) 6.0 Eos % (Auto) 0.0 Baso % (Auto) 0.4 Neut # (Auto) 5.63 Lymph # (Auto) 0.8 [place] # (Auto) 0.4 Eos # (Auto) 0.0 Baso # (Auto) 0.0 Nucleated RBC % (a uto) 0 Nucleated RBCs # 0.0 Sodium 139 Potassium 3.7 Chloride 111 H Carbon Dioxide 20 L Anion Gap 11.7 BUN 21 Creatinine 1.3 H GFR Calculation Not Reportable Glucose 56 L Calculated Osmolal ity 282 L Calcium 7.9 L Total Bilirubin 0.4 AST 30 ALT 21 Alkaline Phosphata se 61 Total Protein 4.6 L Albumin 2.3 L Globulin 2.3 Triglycerides 109 Cholesterol 111 LDL Cholesterol, C alc 57 HDL Cholesterol 32 L LDL/HDL Ratio 1.78 Cholesterol/HDL Ra robbi 3.47 Vitals: Last Vital Signs Temp 97.8 F 04/03/20 16:00 Pulse 85 04/04/20 08:43 Resp 18 04/04/20 08:43 BP 124/65 04/04/20 05:00 Pulse Ox 97 04/04/20 08:43 Discharge Plan Discharge Patient Disposition: Home Health Service Condition: Stable Prescriptions: New cefdinir 300 mg capsule 300 mg PO BID 5 Days Qty: 10 RF: 0 sennosides [Senna Lax] 8.6 mg Tablet 17.2 mg PO BEDTIME Qty: 30 RF: 0 clopidogrel 75 mg Tablet 75 mg PO DAILY Qty: 30 RF: 0 atorvastatin 10 mg tablet 10 mg PO DAILY Qty: 30 RF: 0 Continued naloxone 4 mg/actuation spray,non-aerosol 4 mg INTRANASAL Q2M PRN (Reason: opioid overdose) Qty: 1 RF: 0 ethambutol 400 mg tablet 800 mg PO QDAY Qty: 60 RF: 6 diphenoxylate-atropine [Lomotil] 2.5-0.025 mg tablet 1 tab PO DAILY PRN (Reason: Diarrhea) RF: 0 polyethylene glycol 3350 [Miralax] 17 gram/dose powder 17 gm PO BID PRN (Reason: Constipation) RF: 0 PreserVision AREDS [id number],160-113-100 [id number] tablet 1 tab PO DAILY RF: 0 cholecalciferol (vitamin D3) 50 mcg (2,000 unit) capsule 50 mcg PO DAILY Qty: 90 RF: 1 hydromorphone 4 mg tablet 4 mg PO QID PRN (Reason: pain) 30 Days Qty: 120 RF: 0 gabapentin 300 mg capsule 300 mg PO BID 30 Days Qty: 60 RF: 0 hydroxychloroquine 200 mg tablet 200 mg PO BID Qty: 60 RF: 3 pantoprazole 40 mg tablet,delayed release (DR/EC) 40 mg PO BID Qty: 60 RF: 3 fluconazole [Diflucan] 100 mg tablet 100 mg PO DAILY RF: 0 calcium carbonate-vitamin D3 [Calcium 600 + D(3)] 600 mg(1,500mg) -200 unit Tablet 1 tab PO DAILY RF: 0 prednisone 10 mg tablet 10 mg PO DAILY RF: 0 Children's Multivitamin Tablet,Chewable 1 tab PO DAILY RF: 0 aspirin [Aspirin Childrens] 81 mg Tablet,Chewable 81 mg PO DAILY RF: 0 Discharge Orders: Discharge Order (Routine); Ordered 04/04/20 Ordered By: Anders Adame Other Ambulatory Orders: Complete Blood Count w/Auto (Routine) Timeframe: 20200408 Location: Determined by Patient Ordered By: Anders Adame Comprehensive Metabolic Panel (Routine) Timeframe: 20200408 Facility: [facility] - Location: Lab - Main Lab Ordered By: Anders Adame Referrals: Meng Wu MD [Primary Care Provider] - 4-7 days Ana Lilia Richardson MD [Physician] - 4-7 days Discharge Diet: As Directed Discharge Activity: Increase activity as tolerated Activity Restrictions/Additional Instructions: Please call your doctor or present to emergency department if your condition worsens or you develop diarrhea, lightheadedness, fatigue or see blood in your stool or black stool. Please follow speech therapy recommendations as you are at very high risk of aspiration. Please discuss with Dr. Wu regarding possibility of placement of feeding tube if you decide to proceed. 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
[2020-04-04] MEDS: aspirin 81 mg Chew Tablet PO (09:52)
[2020-04-04] MEDS: clopidogrel 75 mg Tablet PO (09:53)
[2020-04-04] MEDS: fluconazole 100 mg Tablet PO (09:53)
[2020-04-04] MEDS: gabapentin 300 mg Capsule PO (09:53)
[2020-04-04] MEDS: pantoprazole DR 40 mg Tablet PO (09:54)
[2020-04-04] MEDS: hydroxychloroquine 200 mg Tablet PO (09:54)
[2020-04-04] MEDS: predniSONE 10 mg Tablet PO (09:55)
[2020-04-04] MEDS: polyethylene glycol 3350 Pkt 17 gm PO (10:00)
--- NOTE | 2020-04-04 15:51 | PC.NURSE ---
FAMILY UPDATED SEVERAL TIMES ABOUT PLANS FOR GOING HOME. PATIENT REFUSED AMGEN OXYGEN WHEN HE ATTEMPTED TO TEACH IT TO HIM. 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
--- NOTE | 2020-04-04 17:12 | PC.NURSE ---
1630- ASSISTED PT WITH GETTING DRESSED. [employer] REMOVED & REAPPLIED TO LEFT AC SPACE & LEFT BUTTOCK, ALONG WITH SHRUTI-CARE PRIOR TO DISCHARGE HOME. REQUIRES MAX ASSIST X2/3 TO GET INTO CAR. PT VERY FRAIL & SKIN BRUISES/TEARS EASILY. REVIEWED DISCHARGE INSTRUCTIONS WITH PT /CAREGIVER. VERBALIZES UNDERSTANDING & STATES THAT SHE WILL CALL BACK IF SHE NEEDS MORE INFO. FAMILY STOPPED AT HOME FOR O2 INSTRUCTIONS/USE. WISHED WELL
--- NOTE | 2020-04-08 11:50 | PC.SOCIAL ---
returned call and patient has been admitted to [facility]. Was not doing well after DC here therefore returned for evaluation but went to different facility by choice. appreciated the return call.
== END 2020-04-04 16:45 | disposition home health service (06) | DRG 871 ==
LOC: ER 12:26 → ICU 20:26
PROVIDERS: Internal Medicine; Internal Medicine Cardiovascular Disease; Admitting Provider Internal Medicine; Emergency Provider Family Medicine; PCP Internal Medicine; Visit Provider Internal Medicine
DX: A41.9 Sepsis, unspecified organism (principal); J96.01 Acute respiratory failure with hypoxia; I21.4 Non-ST elevation (NSTEMI) myocardial infarction; J69.0 Pneumonitis due to inhalation of food and vomit; E27.40 Unspecified adrenocortical insufficiency; N17.9 Acute kidney failure, unspecified; G89.29 Other chronic pain; M54.5 Low back pain; J38.3 Other diseases of vocal cords; M05.79 Rheumatoid arthritis with rheumatoid factor of multiple sites without organ or systems involvement; R13.12 Dysphagia, oropharyngeal phase; Z79.82 Long term (current) use of aspirin; Z20.828 Contact with and (suspected) exposure to other viral communicable diseases; M81.0 Age-related osteoporosis without current pathological fracture; Z96.653 Presence of artificial knee joint, bilateral; Z87.891 Personal history of nicotine dependence
CPT/HCPCS: 12345; 36415; 51702; 71045; 71275; 72132; 80053; 80061; 81001; 81003; 82550; 83605; 83735; 84484; 85025; 85378; 85651; 86140; 87040; 87086; 87635; 92523; 92524; 92526; 92610; 93005; 93306; 94664; 96372; 96375; 97110; 97161; 97166; 97530; 99283; J0696; J1200; J1650; J1720; J1956; J2405; J2930; J7030; J7512; Q9967

== ENCOUNTER 2020-05-13 10:22 | Inpatient (IN) | payer MEDICARE, OTHER, SELFPAY ==
[2020-05-13] VITALS (21 sets, daily range): BP systolic 82–108; BP diastolic 51–68; PULSE 81–115; RESP 17–30; TEMP 37–37.7; O2SAT 73–100; BMI 24.2
--- NOTE | 2020-05-13 10:27 | XRR_ITS ---
PROCEDURE INFORMATION: Exam: XR Chest, 1 View Exam date and time: 05/13/2020 10:29 AM Age: 79 years old Clinical indication: Cough and shortness of breath; Additional info: Dyspnea/cough TECHNIQUE: Imaging protocol: XR of the chest Views: Frontal portable semiupright view of the chest. COMPARISON: CR XR chest 1V portable [id number] 04/01/2020 12:52 PM FINDINGS: Lungs: Interval increase in patchy right-sided pulmonary infiltrates. The pulmonary vasculature is stable. Right hilar granulomatous destini calcifications are present. Right mid lung zone calcified pulmonary parenchymal granuloma. Pleural space: No pleural effusion. No pneumothorax. Heart/Mediastinum: The heart is normal in size and contour. Mediastinum: Stable. Bones/joints: Severe right subacromial space narrowing, severe right humeral head remodeling. Mid-upper lumbar vertebroplasties. Organs: The gallbladder is likely surgically absent, with metallic clips overlying the gallbladder fossa. XR/XR chest 1V portable [id number] IMPRESSION: 1. Interval increase in patchy right-sided pulmonary infiltrates. Pneumonitis, including viral pneumonitis, is difficult to exclude. Clinical correlation is recommended. 2. Prior cholecystectomy.
--- NOTE | 2020-05-13 10:37 | W.ED.SOB ---
HPI - SOB/Dyspnea General: Chief Complaint: Nausea/Vomiting/Diarrhea Stated Complaint: N/V, WEAKNESS Time Seen by Provider: 05/13/20 10:26 History of Present Illness: HPI Narrative: 79-year-old male presents emergency room with complaints of shortness of breath. Patient has history of COPD he denies any chest pain he is having some right hip pain there is no history of fall. Difficulty breathing began overnight he has coarse expiratory breath sounds he was recently hospitalized at [facility] for pneumonia. Recent N STEMI per the . Has a history of tuberculosis infection of the spine. MD elicited complaint: shortness of breath and cough Pertinent past history: COPD and pneumonia Onset (ago): hour(s) Context: recent illness Timing: constant Severity: severe Exacerbating factors: lying flat, exertion and coughing Relieving factors: oxygen and rest Known history of: COPD Associated symptoms: Reports chest congestion and cough; Deny abdominal pain, chest pain, diaphoresis, dizziness, extremity pain, fever(s), hemoptysis, lightheadedness, myalgias, nausea, orthopnea, palpitations, paresthesias, polydipsia, polyuria, rash, sense of impending doom, syncope or vomiting Treatment prior to arrival: oxygen Review of Systems Const: Denies: fever(s) or diaphoresis Card: Denies: chest pain, palpitations, lightheadedness, syncope or orthopnea Resp: Reports: chest congestion; Denies: hemoptysis GI: Denies: abdominal pain, nausea or vomiting : Denies: flank pain, dysuria, urinary frequency or urinary urgency Musc: Denies: extremity pain Skin/Breast: Denies: rash or pruritus Neuro: Denies: dizziness Endo: Denies: polyuria or polydipsia PFSH ED PFSH: Medical History Chronic adrenal insufficiency Degenerative lumbar spinal stenosis Elevated blood pressure reading High risk medication use Immunization counseling FDC (current) use of systemic steroids Medication monitoring encounter Nontuberculous atypical mycobacterial disease Osteoporosis Pseudoaneurysm of carotid artery Rheumatoid arthritis with rheumatoid factor of multiple sites without organ or systems involvement Seropositive rheumatoid arthritis of multiple joints Surgical History History of back surgery History of knee replacement left on 10/12/16 and right on 12-05-16 Hx of cataract surgery bilateral Hx of cholecystectomy Status post carotid surgery Family History Other Hypertension Denies family history of Rheumatoid arthritis Diabetes CAD (coronary artery disease) Systemic lupus erythematosus (SLE) in adult Cancer Social History Smoking and tobacco status: former smoker Alcohol intake: former Substance/Drug Use: never Housing: Group Home Marital status: Current occupational status: retired History of recent travel: No Physical Exam Const: COMMON NORMALS: no acute distress GENERAL APPEARANCE: cooperative and comfortable ORIENTATION/CONSCIOUSNESS: Yes awake, Yes oriented to person, Yes oriented to place and Yes oriented to time HENMT: COMMON NORMALS: normocephalic, atraumatic, hearing grossly normal bilaterally, external ears normal, EAC's normal, TM's normal bilaterally, Normal nasal mucous membranes and turbinates present, moist oral mucous membranes and oropharynx normal HEAD & SCALP: normocephalic and atraumatic NOSE: Normal nasal mucous membranes and turbinates present EXTERNAL EAR: Yes external ears normal EXTERNAL AUDITORY CANAL: EAC's normal TYMPANIC MEMBRANE: TM's normal bilaterally Eye: COMMON NORMALS: Equal, round and reactive pupils present, EOMs intact bilaterally, conjunctivae normal and no scleral icterus CONJUNCTIVA: Yes conjunctivae normal PUPIL: Yes Equal, round and reactive pupils present Neck/C-Spine: COMMON NORMALS: full ROM, no lymphadenopathy, supple and no JVD Lymph: LYMPHATIC: no lymphadenopathy noted and no lymphedema noted Resp: AUSCULTATION: rhonchi, wheezes and diminished lung sounds Cardio: COMMON NORMALS: no JVD, regular rate, regular rhythm and No murmurs present (Cardio) RATE: regular rate RHYTHM: regular rhythm GI: COMMON NORMALS: Soft to palpation and No hepatosplenomegaly present AUSCULTATION: Yes normoactive bowel sounds PALPATION: Yes Soft to palpation, No Tenderness to palpation present (GI), No Guarding due to palpation present (GI) and Yes No hepatosplenomegaly present Extremity: COMMON NORMALS: normal to inspection, capillary refill normal, no clubbing, cyanosis or edema, no calf tenderness and no pedal edema Neuro: SENSORIUM/ORIENTATION: Yes oriented to person, Yes oriented to place and Yes oriented to time Skin: COMMON NORMALS: no rashes or lesions noted GENERAL SKIN EXAM: no rashes or lesions noted Course Vital Signs: Vital signs: Vital Signs Temperature 97.7 F 05/15/20 00:00 Pulse Rate 92 05/15/20 06:00 Respiratory Rate 20 H 05/15/20 06:00 Blood Pressure 86/54 05/15/20 06:00 Pulse Oximetry 95 05/15/20 06:00 MDM - SOB/Dyspnea MDM Narrative: Medical decision making narrative: Discussed with hospitalist will admit for sepsis. Reviewed case. Right lower lobe pneumonia admit with IV antibiotics. Lab Data: Labs: Lab Results 05/13/20 05/13/20 05/13/20 Range/Units 11:00 11:00 11:00 WBC 17.9 H (4.0-10.0) 10^3/ uL RBC 4.40 (4.1-5.3) 10^6/u L Hgb 12.5 (11.7-16.6) g/dL Hct 40.5 L (42.0-52.0) % MCV 92.0 (80-94) fL MCH 28.4 (28.0-34.0) pg MCHC 30.9 (30.0-36.0) g/dL RDW 14.6 (12.1-15.1) % Plt Count 299 (130-400) 10^3/c mm MPV 10.4 (7.4-10.4) fL Neut % (Auto) 92.6 % Lymph % (Auto) 1.7 % Cole % (Auto) 4.6 % Eos % (Auto) 0.1 % Baso % (Auto) 0.3 % Neut # (Auto) 16.61 H (1.8-7.7) 10^3/u L Lymph # (Auto) 0.3 L (0.8-4.8) 10^3/u L Cole # (Auto) 0.8 (0.2-0.9) 10^3/u L Eos # (Auto) 0.0 (0.0-0.8) 10^3/u L Baso # (Auto) 0.1 (0.0-0.1) 10^3/u L Nucleated RBC % (a uto) 0 % Nucleated RBCs # 0.0 /100WBC Specimen Type Sample Site ABG pH (7.35-7.45) ABG pCO2 (35-45) mmHg ABG pO2 (80.0-100.0) mmH g ABG HCO3 (22-26) mmol/L ABG O2 Saturation ABG Base Excess (-2.0-2.0) mmol/ L Marv Test A-a O2 Gradient (5-10) mmHg Hematocrit (42-52) % Hgb O2 Saturation (95-100) % Carboxyhemoglobin (0.4-20.1) %THgb Methemoglobin (0.4-1.5) % Total Hemoglobin (14-18) g/dL Ionized Calcium (1.1-1.4) mmol/L O2 Delivery Device O2 Liters/Min % Network Technology Instructor ID Sodium Cancelled Potassium Cancelled Chloride Cancelled Carbon Dioxide Cancelled Anion Gap Cancelled BUN Cancelled Creatinine Cancelled GFR Calculation Cancelled Glucose Cancelled Estimat Average Gl ucose 91 Hemoglobin A1c 4.8 (4.0-6.0) % Calculated Osmolal ity Cancelled Lactic Acid (0.5-2.2) mmol/L Lactic Acid (Sepsi s) (0.5-2.2) mmol/L Calcium Cancelled Total Bilirubin Cancelled AST Cancelled ALT Cancelled Alkaline Phosphata se Cancelled Total Protein Cancelled Albumin Cancelled Globulin Cancelled Urine Color (Yellow) Urine Appearance (CLEAR) Urine pH (5-7) Ur Specific Gravit y (1.005-1.030) Urine Protein (Negative) Urine Glucose (UA) (Normal) Urine Ketones (Negative) Urine Blood (Negative) Urine Nitrate (Negative) Urine Bilirubin (NEGATIVE) Urine Urobilinogen (Negative) mg/dL Ur Leukocyte Noreen ase (Negative) Urine RBC (0-2) /hpf Urine WBC (0-5) /hpf Ur Squamous Epith Cells (0-5) Amorphous Sediment Urine Bacteria (NONE) SARS-CoV-2 Ag (Rap id) (Negative) 05/13/20 05/13/20 05/13/20 Range/Units 11:05 11:20 11:27 WBC (4.0-10.0) 10^3/ uL RBC (4.1-5.3) 10^6/u L Hgb (11.7-16.6) g/dL Hct (42.0-52.0) % MCV (80-94) fL MCH (28.0-34.0) pg MCHC (30.0-36.0) g/dL RDW (12.1-15.1) % Plt Count (130-400) 10^3/c mm MPV (7.4-10.4) fL Neut % (Auto) % Lymph % (Auto) % Cole % (Auto) % Eos % (Auto) % Baso % (Auto) % Neut # (Auto) (1.8-7.7) 10^3/u L Lymph # (Auto) (0.8-4.8) 10^3/u L Cole # (Auto) (0.2-0.9) 10^3/u L Eos # (Auto) (0.0-0.8) 10^3/u L Baso # (Auto) (0.0-0.1) 10^3/u L Nucleated RBC % (a uto) % Nucleated RBCs # /100WBC Specimen Type Sample Site ABG pH (7.35-7.45) ABG pCO2 (35-45) mmHg ABG pO2 (80.0-100.0) mmH g ABG HCO3 (22-26) mmol/L ABG O2 Saturation ABG Base Excess (-2.0-2.0) mmol/ L Marv Test A-a O2 Gradient (5-10) mmHg Hematocrit (42-52) % Hgb O2 Saturation (95-100) % Carboxyhemoglobin (0.4-20.1) %THgb Methemoglobin (0.4-1.5) % Total Hemoglobin (14-18) g/dL Ionized Calcium (1.1-1.4) mmol/L O2 Delivery Device O2 Liters/Min % Network Technology Instructor ID Sodium Cancelled Potassium Cancelled Chloride Cancelled Carbon Dioxide Cancelled Anion Gap Cancelled BUN Cancelled Creatinine Cancelled GFR Calculation Cancelled Glucose Cancelled Estimat Average Gl ucose Hemoglobin A1c (4.0-6.0) % Calculated Osmolal ity Cancelled Lactic Acid 3.5 H (0.5-2.2) mmol/L Lactic Acid (Sepsi s) (0.5-2.2) mmol/L Calcium Cancelled Total Bilirubin Cancelled AST Cancelled ALT Cancelled Alkaline Phosphata se Cancelled Total Protein Cancelled Albumin Cancelled Globulin Cancelled Urine Color Dark yellow (Yellow) Urine Appearance Clear (CLEAR) Urine pH 5.0 (5-7) Ur Specific Gravit y 1.025 (1.005-1.030) Urine Protein Neg (Negative) Urine Glucose (UA) Norm (Normal) Urine Ketones Negative (Negative) Urine Blood 2+ H (Negative) Urine Nitrate Negative (Negative) Urine Bilirubin Neg (NEGATIVE) Urine Urobilinogen Norm (Negative) mg/dL Ur Leukocyte Noreen ase Negative (Negative) Urine RBC 10-15 H (0-2) /hpf Urine WBC 0-4 H (0-5) /hpf Ur Squamous Epith Cells 0-4 H (0-5) Amorphous Sediment Not Reportable Urine Bacteria 1+ H (NONE) SARS-CoV-2 Ag (Rap id) (Negative) 05/13/20 05/13/20 05/13/20 Range/Units 11:54 12:11 14:05 WBC (4.0-10.0) 10^3/ uL RBC (4.1-5.3) 10^6/u L Hgb (11.7-16.6) g/dL Hct (42.0-52.0) % MCV (80-94) fL MCH (28.0-34.0) pg MCHC (30.0-36.0) g/dL RDW (12.1-15.1) % Plt Count (130-400) 10^3/c mm MPV (7.4-10.4) fL Neut % (Auto) % Lymph % (Auto) % Cole % (Auto) % Eos % (Auto) % Baso % (Auto) % Neut # (Auto) (1.8-7.7) 10^3/u L Lymph # (Auto) (0.8-4.8) 10^3/u L Cole # (Auto) (0.2-0.9) 10^3/u L Eos # (Auto) (0.0-0.8) 10^3/u L Baso # (Auto) (0.0-0.1) 10^3/u L Nucleated RBC % (a uto) % Nucleated RBCs # /100WBC Specimen Type Arterial Sample Site Brachial, left ABG pH 7.41 (7.35-7.45) ABG pCO2 32.9 L (35-45) mmHg ABG pO2 71.0 L (80.0-100.0) mmH g ABG HCO3 21.0 L (22-26) mmol/L ABG O2 Saturation 95.6 ABG Base Excess -2.9 L (-2.0-2.0) mmol/ L Marv Test Pos A-a O2 Gradient 4.8 L (5-10) mmHg Hematocrit 36.9 L (42-52) % Hgb O2 Saturation 93.6 L (95-100) % Carboxyhemoglobin 1.2 (0.4-20.1) %THgb Methemoglobin 0.9 (0.4-1.5) % Total Hemoglobin 12.0 L (14-18) g/dL Ionized Calcium 1.2 (1.1-1.4) mmol/L O2 Delivery Device Nc O2 Liters/Min 4.0 % Network Technology Instructor ID jmn Sodium 142.0 139 Potassium 3.2 L 3.7 Chloride 103 Carbon Dioxide 22 Anion Gap 17.7 BUN 43 H Creatinine 2.1 H GFR Calculation Not Reportable Glucose 116.0 H 121 H Estimat Average Gl ucose Hemoglobin A1c (4.0-6.0) % Calculated Osmolal ity 287 Lactic Acid (0.5-2.2) mmol/L Lactic Acid (Sepsi s) 2.6 H (0.5-2.2) mmol/L Calcium 9.0 Total Bilirubin 1.1 AST 28 ALT 9 Alkaline Phosphata se 95 Total Protein 6.3 L Albumin 2.9 L Globulin 3.4 Urine Color (Yellow) Urine Appearance (CLEAR) Urine pH (5-7) Ur Specific Gravit y (1.005-1.030) Urine Protein (Negative) Urine Glucose (UA) (Normal) Urine Ketones (Negative) Urine Blood (Negative) Urine Nitrate (Negative) Urine Bilirubin (NEGATIVE) Urine Urobilinogen (Negative) mg/dL Ur Leukocyte Noreen ase (Negative) Urine RBC (0-2) /hpf Urine WBC (0-5) /hpf Ur Squamous Epith Cells (0-5) Amorphous Sediment Urine Bacteria (NONE) SARS-CoV-2 Ag (Rap id) (Negative) 05/13/20 Range/Units 14:30 WBC (4.0-10.0) 10^3/ uL RBC (4.1-5.3) 10^6/u L Hgb (11.7-16.6) g/dL Hct (42.0-52.0) % MCV (80-94) fL MCH (28.0-34.0) pg MCHC (30.0-36.0) g/dL RDW (12.1-15.1) % Plt Count (130-400) 10^3/c mm MPV (7.4-10.4) fL Neut % (Auto) % Lymph % (Auto) % Cole % (Auto) % Eos % (Auto) % Baso % (Auto) % Neut # (Auto) (1.8-7.7) 10^3/u L Lymph # (Auto) (0.8-4.8) 10^3/u L Cole # (Auto) (0.2-0.9) 10^3/u L Eos # (Auto) (0.0-0.8) 10^3/u L Baso # (Auto) (0.0-0.1) 10^3/u L Nucleated RBC % (a uto) % Nucleated RBCs # /100WBC Specimen Type Sample Site ABG pH (7.35-7.45) ABG pCO2 (35-45) mmHg ABG pO2 (80.0-100.0) mmH g ABG HCO3 (22-26) mmol/L ABG O2 Saturation ABG Base Excess (-2.0-2.0) mmol/ L Marv Test A-a O2 Gradient (5-10) mmHg Hematocrit (42-52) % Hgb O2 Saturation (95-100) % Carboxyhemoglobin (0.4-20.1) %THgb Methemoglobin (0.4-1.5) % Total Hemoglobin (14-18) g/dL Ionized Calcium (1.1-1.4) mmol/L O2 Delivery Device O2 Liters/Min % Network Technology Instructor ID Sodium Potassium Chloride Carbon Dioxide Anion Gap BUN Creatinine GFR Calculation Glucose Estimat Average Gl ucose Hemoglobin A1c (4.0-6.0) % Calculated Osmolal ity Lactic Acid (0.5-2.2) mmol/L Lactic Acid (Sepsi s) (0.5-2.2) mmol/L Calcium Total Bilirubin AST ALT Alkaline Phosphata se Total Protein Albumin Globulin Urine Color (Yellow) Urine Appearance (CLEAR) Urine pH (5-7) Ur Specific Gravit y (1.005-1.030) Urine Protein (Negative) Urine Glucose (UA) (Normal) Urine Ketones (Negative) Urine Blood (Negative) Urine Nitrate (Negative) Urine Bilirubin (NEGATIVE) Urine Urobilinogen (Negative) mg/dL Ur Leukocyte Noreen ase (Negative) Urine RBC (0-2) /hpf Urine WBC (0-5) /hpf Ur Squamous Epith Cells (0-5) Amorphous Sediment Urine Bacteria (NONE) SARS-CoV-2 Ag (Rap id) Negative (Negative) Discharge Plan Discharge Patient Disposition: Admitted As Inpatient Admit Provider: Jd Smith Clinical Impression: Septic shock, Recurrent aspiration pneumonia, Nausea & vomiting, HAMLET (acute kidney injury) Condition: Stable Interventions: ED Discharge Assessment Last Done: 05/13/20 16:15 ED Charges Last Done: 05/13/20 16:15 Discharge Date/Time: 05/13/20 17:05 Coding Level of Care Code ED 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
[2020-05-13 11:14] LABS: Basophils # 0.1 10^3/uL (0.0-0.1); Basophils % 0.3 %; Eosinophils % 0.1 %; Hematocrit 40.5 % (42.0-52.0); Hemoglobin 12.5 g/dL (11.7-16.6); Lymphocytes # 0.3 10^3/uL (0.8-4.8); Lymphocytes % 1.7 %; Mean Corpuscular HGB Conc 30.9 g/dL (30.0-36.0); Mean Corpuscular Hemoglobin 28.4 pg (28.0-34.0); Mean Platelet Volume 10.4 fL (7.4-10.4); Monocytes # 0.8 10^3/uL (0.2-0.9); Monocytes % 4.6 %; Neutrophils # 16.61 10^3/uL (1.8-7.7); Neutrophils % 92.6 %; Nucleated Red Blood Cells % 0 %; Platelet Count 299 10^3/cmm (130-400); Red Cell Distribution Width 14.6 % (12.1-15.1); White Blood Count 17.9 10^3/uL (4.0-10.0)
[2020-05-13] MEDS: sodium chloride 0.9% 1,000 ML 999 ML IV ×2 (11:28→14:33)
[2020-05-13 11:41] LABS: Add Urine Microscopic? YES; Bilirubin Urine Neg (NEGATIVE); Glucose Urine UA Norm (Normal); Ketones Urine Negative (Negative); Leukocyte Esterase Urine Negative (Negative); Nitrate Urine Negative (Negative); Protein Urine Neg (Negative); Specific Gravity, Urine 1.025 (1.005-1.030); Urine Appearance Clear (CLEAR); Urine Color Dark Yellow (Yellow); Urobilinogen Urine Norm (Negative)
[2020-05-13 11:42] LABS: Add Urine Culture? Yes; Bacteria Urine 1+; Blood Urine 2+ (Negative); Squamous Epithelial Cell Urine 0-4 (0-5); WBC Urine 0-4 /hpf (0-5)
[2020-05-13 11:54] LABS: Lactic Sepsis W/Reflex 3.5 mmol/L (0.5-2.2)
[2020-05-13 12:04] LABS: ABG PCO2 32.9 mmHg (35-45); ABG PH Result 7.41 (7.35-7.45); Alveolar-Arterial Oxygen Gradi 4.8 mmHg (5-10); Arterial Blood Gas Hematocrit 36.9 % (42-52); Base Excess ABG -2.9 mmol/L (-2.0-2.0); Blood Gas Allen Test Pos; Blood Gas Sample Type Arterial; Carboxyhemoglobin 1.2 %THgb (0.4-20.1); HGB O2 Sat 93.6 % (95-100); Ionized Calcium Level - ABG 1.2 mmol/L (1.1-1.4); Methemoglobin 0.9 % (0.4-1.5); Oxygen Saturation ABG 95.6; Potassium Level - ABG 3.2 mmol/L (3.5-5.0)
[2020-05-13 12:05] LABS: Blood Gas Sample Site Brachial, left; Oxygen Device NC
[2020-05-13 12:36] LABS: Alanine Aminotransferase 9 U/L (0-41); Albumin Level 2.9 g/dL (3.5-5.2); Alkaline Phosphatase 95 IU/L (40-130); Blood Urea Nitrogen 43 mg/dL (8-23); Carbon Dioxide 22 mmol/L (22-29); Chloride 103 mmol/L (98-107); Globulin 3.4 g/dL (1.3-4.6); Glucose 121 mg/dL (65-115); Osmolality Calculated 287 mOsm/kg (285-295); Sodium 139 mmol/L (136-145); Total Bilirubin 1.1 mg/dL (0.15-1.2); Total Protein 6.3 g/dL (6.6-8.7)
[2020-05-13 12:41] LABS: Anion Gap 17.7 (5-19); Potassium 3.7 mmol/L (3.5-5.1)
[2020-05-13 12:42] LABS: Aspartate Amino Transferase 28 U/L (0-40)
[2020-05-13 13:12] LABS: Reflex Lactate Order REFLEX LACTIC ORDERD
[2020-05-13] MEDS: piperacillin-tazobactam 3.375 GM in sodium chloride 0.9% (plus) 50 ML IV ×2 (13:18→19:57)
[2020-05-13] MEDS: vancomycin 1,000 MG in sodium chloride 0.9% 250 ML 250 MG IV (14:32)
[2020-05-13 14:59] LABS: Lactic Acid level (Lactate) 2.6 mmol/L (0.5-2.2)
[2020-05-13 15:07] LABS: SARS Covid-2 Antigen Negative (Negative)
--- NOTE | 2020-05-13 15:49 | P.HP_ITS ---
Providers/Chief Complaint Admitting Physician: Jd Smith Primary Care Provider: Meng Wu MD Chief Complaint: N/V, WEAKNESS History of Present Illness Lg Lund is a 79 year old gentleman recently admitted and treated for PNA at [facility], recently discharged to SNF, with history of L carotid artery bifurcation aneurysm, subsequently with vocal cord dysfunction, dysphonia and dysphagia with recent admission here 04/01-04/04 with pneumonia thought to be due to aspiration, treated with antibiotic, with dysphagia diet on nectar thick liquids, with trial of honey thick liquids, at that time with consideration of alternatives to oral feeding, with recommendation to follow-up with PCP with consideration of possible feeding tube which at that time he had declined, with non-STEMI treated medically as he had declined invasive intervention, with cont inuation of medical therapy and recommendation by cardiology for consideration of coronary geography on elective basis if he agrees. He and his did not want to consider skilled nurse facility at the time, and was discharged home with home health. She has been having to help him with activities of daily life as he is nonambulatory. Has sacral pressure ulcers. He presents to emergency department due to shortness of breath, without any chest pain. He is not a good historian, and is not really able to move tell me very well where he is coming from. He is somewhat stumbles upon the answers after some trial and error telling me that he was living in [place] previously, but recently has moved down to [place]. It appears that after his [facility] hospitalization he was discharged to [facility]. He knows he is currently in [place]. He is not sure about the name of the hospital. States that his breathing is currently better. Denies any other complaints, although does say that he had an episode of vomiting this morning, and that this has been somewhat recurrent issue. Denies abdominal pain. No further vomiting. No diarrhea. does confirm that he had an episode of vomiting at [facility] where he is currently staying after his last hospitalization, for perhaps ~3 wks. She does not remember much about what was treated during that hospitalization and is agreeable with requesting records. She does report he would occasionally vomit in the morning, usually after he would eat something in the evening. She denies that he has history of diabetes. He is chronically on prednisone, and apparently they have tried to wean down in the past but unsuccessfully due to chronic adrenal insufficiency. Per discussion with [facility] staff it appears today he did have an episode of vomiting, and also had decompensation in his respiratory condition, short of breath, as well as yesterday was noted to have some productive cough. Previously on oxygen as needed currently requiring 4 L by nasal cannula in ER, with finding of right lower lobe worsening infiltrate compared to prior, with leukocytosis 17.9, tachycardia on presentation 105-115, sinus, concerning for sepsis, hypotensive, although maintaining borderline blood pressures after 2 L IV fluid challenge, BP 82/51 in ER. Reportedly 2 days ago blood pressures were 126/54, 134/58. notes son is involved in his care as well, but cannot find his phone number at the moment. Son called, reports he has been losing weight over several years. He is concerned about how much more his father may be able to take in terms of recurrent medical problems. Review of Systems General: Reports: Other (Review of systems obtained in combination from patient, ER physician, patient's , alf facility nursing staff, and patient's son.) Const: Denies: fever(s), chills, body aches or malaise Eyes: Denies: change in vision or eye redness ENMT: Denies: throat pain, oral sores or ear or mastoid pain Card: Denies: chest pain, edema, pre-syncope or dyspnea on exertion Resp: Reports: dyspnea and productive cough; Denies: change in phlegm color or hemoptysis GI: Reports: nausea and vomiting (This morning, and occasionally in the past, as above noticed usually will happen if he eats at night with vomiting in the morning.); Denies: abdominal pain, diarrhea, constipation, hematochezia or melena : Denies: flank pain, difficulty urinating, urinary frequency or hematuria Musc: Reports: decrease in muscle mass; Denies: back pain, joint swelling or joint redness Skin/Breast: Reports: lesions (Chronic pressure sores on the bottom with skin breakdown); Denies: rash Neuro: Reports: confusion; Denies: headache(s), numbness in extremities, weakness in extremities, dizziness or seizure-like activity Endo: Denies: polyuria or polydipsia Eben/Lymph: Denies: easy bleeding or purpura All/Imm: Denies: urticaria, throat swelling or tongue swelling Medications/Allergies Home Medications Medication Instructions Recorded Confirmed Last Taken Type polyethylene glycol 3350 17 17 gm PO DAILY 09/18/19 05/13/20 03/31/20 History gram/dose oral powder gabapentin 300 mg capsule 300 mg PO BID 30 Days #60 cap 03/29/20 05/13/20 04/01/20 Rx prednisone 10 mg tablet 10 mg PO DAILY tab 03/29/20 05/13/20 04/01/20 History alum-mag hydroxide-simeth [Mintox] 30 ml PO Q4H PRN 05/13/20 05/13/20 Unknown History atorvastatin 10 mg PO BEDTIME 05/13/20 05/13/20 Unknown History ethambutol 800 mg PO QAM 05/13/20 05/13/20 Unknown History furosemide 20 mg PO DAILY 05/13/20 05/13/20 Unknown History hydromorphone 4 mg PO BID 05/13/20 05/13/20 05/13/20 08:00 History hydromorphone 4 mg PO BID PRN 05/13/20 05/13/20 Unknown History magnesium hydroxide [Milk of 15 ml PO Q4H PRN 05/13/20 05/13/20 Unknown History Magnesia] sennosides-docusate sodium 2 tab PO BEDTIME 05/13/20 05/13/20 Unknown History [Senna-S] Allergies Allergy/AdvReac Type Severity Reaction Status Date / Time adhesive tape Allergy RASH Verified 05/13/20 11:38 Iodinated Contrast Media AdvReac ADR-Chest Verified 05/13/20 11:38 Pain PFSH Acute PFSH: Medical History Chronic adrenal insufficiency Degenerative lumbar spinal stenosis Elevated blood pressure reading High risk medication use Immunization counseling custodial (current) use of systemic steroids Medication monitoring encounter Nontuberculous atypical mycobacterial disease Osteoporosis Pseudoaneurysm of carotid artery Rheumatoid arthritis with rheumatoid factor of multiple sites without organ or systems involvement Seropositive rheumatoid arthritis of multiple joints Surgical History History of back surgery History of knee replacement left on 10/12/16 and right on 12-05-16 Hx of cataract surgery bilateral Hx of cholecystectomy Status post carotid surgery Family History Other Hypertension Denies family history of Rheumatoid arthritis Diabetes CAD (coronary artery disease) Systemic lupus erythematosus (SLE) in adult Cancer Social History Smoking and tobacco status: former smoker Alcohol intake: former Substance/Drug Use: never Housing: Correction Marital status: Current occupational status: retired History of recent travel: No Vitals/I&O/Wt Last Vital Signs Temp 99.8 F H 05/13/20 10:34 Pulse 89 05/13/20 12:09 Resp 18 05/13/20 12:09 BP 82/51 05/13/20 14:00 Pulse Ox 93 05/13/20 14:00 05/13/20 05/13/20 05/13/20 06:59 14:59 22:59 Intake Total 1050 / 1050 Balance 1050 / 1050 Weight last 48 hrs Weight 68.039 kg Physical Exam Const: COMMON NORMALS: no acute distress, patient oriented x3 and alert GENERAL APPEARANCE: cooperative and frail appearing ORIENTATION/CONSCIOUSNESS: Yes awake OTHER: He is awake and alert. Not a good historian. Dysphonia, dysarthria. Requesting for a Coke several times during the visit. HENMT: COMMON NORMALS: oropharynx normal Neck/C-Spine: COMMON NORMALS: no JVD Resp: COMMON NORMALS: normal respiratory effort AUSCULTATION: rhonchi Cardio: COMMON NORMALS: no JVD, regular rhythm, S1 normal heart sound present, S2 normal heart sound present and No murmurs present (Cardio) RHYTHM: regular rhythm HEART SOUNDS: S1 normal heart sound present and S2 normal heart sound present GI: COMMON NORMALS: Normal to inspection, nondistended, normoactive bowel sounds present, Soft to palpation and non-tender PALPATION: Yes Soft to palpation Extremity: COMMON NORMALS: no joint enlargement and no pedal edema Neuro: COMMON NORMALS: patient oriented x3 and moves all extremities Skin: COMMON NORMALS: no rashes or lesions noted LESIONS: lesion noted (Skin breakdown on the bottom.) OTHER: Hyperpigmentation. Data : 05/13/20 11:00 05/13/20 12:11 Micro: Microbiology 05/13/20 11:19 Blood Culture - Preliminary Blood SPECIMEN COLLECTED 05/13/20 11:05 Blood Culture - Preliminary Blood SPECIMEN COLLECTED A&P Assessment and plan (1) Septic shock: Blood cultures, sputum cultures requested. Hypotensive, although maintaining borderline blood pressures after fluid challenge in ER. With acute on chronic adrenal sufficiency as below. Severe sepsis with lactic acidosis, acute renal failure. He also appears to have some confusion over his normally is perhaps better oriented with better insight, and so encephalopathy related to sepsis and acute infection is possible as discussed with his and son. Antibiotics for treatment of pneumonia with recent hospitalization at this time with Zosyn, vancomycin. Will change vancomycin to linezolid given HAMLET. Check MRSA PCR. Follow culture results. High concern for aspiration event, especially given episode of vomiting this morning. Abdomen is soft, he denies any further nausea, requesting for Coca-Cola. Says appetite is good. No abdominal pain or diarrhea. Intermittent episodes of vomiting in the morning especially after eating at night. Monitor in ICU. He is somewhat confused. Does not appear to have good insight into his condition currently appears to be agreeable with anything that is said to him. Per discussion with his and son previously discussions regarding goals of care he would not want CPR in case of cardiopulmonary arrest, although family are agreeable for additional treatment and monitoring in ICU currently with regards to her septic shock, pneumonia, renal failure. Status: Acute (2) Adrenal insufficiency: Chronic adrenal insufficiency, on chronic prednisone. Currently acute renal sufficiency secondary to pneumonia, acute illness with septic shock. Received methylprednisolone in ER, will continue this also for COPD exacerbation. Status: Acute (3) Recurrent aspiration pneumonia: Currently pneumonia right lower lobe with sepsis, septic shock. Also COPD exacerbation. Productive cough which started sometime yesterday. Antibiotics as above. Continue steroids. Follow sputum culture. Breathing treatments. Check urine bacterial antigens. Dysphagia diet. Speech therapy evaluation. Discussed with both his and son. Unfortunately given overall trajectory, functional decline, recurrent aspiration pneumonia, his prognosis long-term is not good. It seems that feeding tube was discussed with him during last admission here. Appears that he elected not to pursue this option, although it is not clear how much benefit it may actually provide long-term given his otherwise overall prognosis does not look good. Request records from hospitalization from [facility] and see if there were any updates with regards to this. Status: Acute (4) Vomiting: Episode of vomiting this morning. Reports he has occasionally some vomiting in the morning, especially if he eats at night. And long-term prednisone, although they are not aware of history of diabetes. Will check A1c, may benefit from assessment by gastric emptying study once he is more stable. Currently there is no vomiting, no abdominal pain, he denies any diarrhea. Abdomen is soft. Right now he has good appetite. Will monitor. We will add PPI given chronic steroid. Status: Acute (5) Acute kidney injury: Suspected is prerenal due to hypotension, seems like his blood pressure was soft already yesterday, with some more productive cough. At this time hold Lasix. Received fluid challenge in ER. Monitor renal function. I&O. Status: Resolved (6) Sarcopenia: He is very thin, with muscle loss. Weight in ER is noted as 149 pounds, however, per discussion with son recently weight at the [facility] was closer to 103 pounds. Son reports continued weight loss over the last year. This appears to be despite being on prednisone. Requested for repeat weight measurement. Status: Acute (7) Declining functional status: Overall functional decline, with progressive weight loss, declining functi onal capacity, requiring assistance with transfers, has been progressively becoming mostly nonambulatory. Given overall trajectory, and also with her current suspect aspiration pneumonia prognosis overall is probably not good. At this time will treat acute illness as above. Once he is more stable assessment by PT, OT. Continue speech therapy follow-up which reportedly he has been getting over at SNF as well. Consider adding protein shakes for sarcopenia. Mobilize as tolerating. Son is considering how much more his father can take given his overall condition has been gradually declining over at least the last year. Continue readdressing goals of care depending on his progress and recovery after the acute illness. 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 Plans were for possibly follow-up with outpatient angiogram if he were agreeable. At this time continue cardiac medications. Other chronic medical problems. Attestations Medical Necessity Statement*: Hospitalization of over 2 midnights is going to be needed for assessment of management of septic shock, acute on chronic adrenal insufficiency, pneumonia, COPD exacerbation, acute kidney injury and other conditions listed above. Critical Care Time: In addition to noncritical issues 45 minutes critical care time spent on assessment management of life-threatening condition including sepsis, septic shock, acute adrenal insufficiency, with acute renal failure, acute encephalopathy, pneumonia, COPD exacerbation. Care also discussed with ER physician, nursing staff, patient, as well as his and his son. Coding Level of Care Code Acute Lead Rider for g Fwd Diagnoses Septic shock A41.9; R65.21 Adrenal insufficiency E27.40 Recurrent aspiration pneumonia J69.0 Vomiting R11.10 Acute kidney injury N17.9 Sarcopenia M62.84 Declining functional status R53.81
--- NOTE | 2020-05-13 16:41 | PC.NURSE ---
Upon hospitalists [place] request, skin assessment was performed to evaluate pressure ulcers that have been being treated by [facility]. Patient has bilateral buttox pressure ulcers covered with wet to dry dressing and island dressing. Another small island dressing noticed on left upper posterior hip. Redness surrounding pressure ulcers as well. Dressings left intact until unit transfer when ICU nurse able to document in assessment for admission
[2020-05-13 17:44] LABS: Estmated Average Glucose 91; Hemoglobin A1C 4.8 % (4.0-6.0)
[2020-05-13] MEDS: gabapentin 300 mg Capsule PO (18:03)
[2020-05-13] MEDS: heparin 5,000 unit/mL INJ 1 mL 5000 UNIT SUBCUT (18:03)
[2020-05-13] MEDS: pantoprazole 40 mg SDV IVP (18:03)
[2020-05-13] MEDS: linezolid premix 600 MG/300 ML PREMIX 300 MG IV (18:15)
--- NOTE | 2020-05-13 19:21 | PC.NURSE ---
1715 to ICU Patient to ICU via stretcher by ED nurse. Patient transferred by x3 nurses. Patient placed on monitor and 4lnc.
[2020-05-13] MEDS: ipratropium-albuterol 3 mL Neb INHALATION (20:33)
[2020-05-14] VITALS (28 sets, daily range): BP systolic 82–134; BP diastolic 51–82; PULSE 70–115; RESP 15–27; TEMP 36.5–36.8; O2SAT 94–100; BMI 17.5
[2020-05-14] MEDS: ipratropium-albuterol 3 mL Neb INHALATION ×4 (02:19→20:59)
[2020-05-14 04:01] LABS: Urine Creatinine 102 mg/dL (39-259)
[2020-05-14 04:27] LABS: Basophils % 0.3 %; Hematocrit 30.6 % (42.0-52.0); Hemoglobin 9.4 g/dL (11.7-16.6); Lymphocytes # 0.4 10^3/uL (0.8-4.8); Lymphocytes % 3.8 %; Mean Corpuscular HGB Conc 30.7 g/dL (30.0-36.0); Mean Corpuscular Hemoglobin 28.2 pg (28.0-34.0); Mean Corpuscular Volume 91.9 fL (80-94); Mean Platelet Volume 9.8 fL (7.4-10.4); Monocytes # 0.2 10^3/uL (0.2-0.9); Monocytes % 2.3 %; Neutrophils # 9.35 10^3/uL (1.8-7.7); Nucleated Red Blood Cells % 0 %; Platelet Count 255 10^3/cmm (130-400); Red Blood Count 3.33 10^6/uL (4.1-5.3); Red Cell Distribution Width 14.5 % (12.1-15.1); White Blood Count 10.1 10^3/uL (4.0-10.0)
[2020-05-14 04:48] LABS: Alanine Aminotransferase 8 U/L (0-41); Albumin Level 2.5 g/dL (3.5-5.2); Alkaline Phosphatase 82 IU/L (40-130); Anion Gap 13.5 (5-19); Aspartate Amino Transferase 16 U/L (0-40); Blood Urea Nitrogen 40 mg/dL (8-23); Carbon Dioxide 20 mmol/L (22-29); Chloride 110 mmol/L (98-107); Globulin 2.9 g/dL (1.3-4.6); Glucose 135 mg/dL (65-115); Osmolality Calculated 290 mOsm/kg (285-295); Potassium 3.5 mmol/L (3.5-5.1); Sodium 140 mmol/L (136-145); Total Bilirubin 0.7 mg/dL (0.15-1.2); Total Protein 5.4 g/dL (6.6-8.7)
[2020-05-14] MEDS: linezolid premix 600 MG/300 ML PREMIX 300 MG IV ×2 (05:50→17:57)
[2020-05-14] MEDS: heparin 5,000 unit/mL INJ 1 mL 5000 UNIT SUBCUT ×2 (05:59→17:57)
[2020-05-14 06:18] LABS: Urea Nitrogen,Urine Random 852 mg/dL
--- NOTE | 2020-05-14 06:47 | PC.NURSE ---
Shift Events: Patient agitated at beginning of shift. New IV started in right AC. Dressing on sacrum/coccyx dry and intact. Refused turns but does turn in bed by himself. Denied complaints of pain. VSS.
--- NOTE | 2020-05-14 06:50 | PC.NURSE ---
Weight Patient weighs 108.9 lbs. Weight taken on admission of 150 lbs was estimated.
--- NOTE | 2020-05-14 07:00 | US_ITS ---
NOTE: Report was unsigned for reason: Order was edited. Original Signature date and time was: 05/15/20 0823 WS: [id number] ULTRASOUND RENAL TECHNIQUE: Ultrasound examination of both kidneys. CLINICAL INFORMATION: HAMLET COMPARISON: None. FINDINGS: RIGHT: Right kidney is normal in size and appearance. Echogenicity: Normal. Cortical thickness: 1.0 cm; Normal. Hydronephrosis: None. Perinephric fluid: None. Right kidney measures: 8.6 cm x 4.4 cm x 4.3 cm. LEFT: Left kidney is normal in size and appearance. Echogenicity: Normal. Cortical thickness: 1.7 cm; Normal. Hydronephrosis: None. Perinephric fluid: None. Left kidney measures: 9.4 cm x 4.2 cm x 5.0 cm. Abdominal aortic aneurysm measuring 4.1 x 4.2cm with prominent eccentric peripheral mural thrombus. Prominent prostate measuring 3.2 x 2.1 x 2.6 cm [facility] US/US renal BI with bladder IMPRESSION: 1. Normal renal ultrasound. 2. Abdominal aortic aneurysm measuring 4.1 x 4.2 cm. Recommend further evaluat ion with CTA abdomen pelvis 3. Prominent prostate measuring 3.2 x 2.1 x 2.6 cm
[2020-05-14] MEDS: piperacillin-tazobactam 3.375 GM in sodium chloride 0.9% (plus) 50 ML IV ×2 (07:53→20:09)
--- NOTE | 2020-05-14 09:12 | PM.PN ---
Subjective Subjective: Interval history: He is today doing little bit better, is more lucid. Knows he is in the hospital. States years 2019. When asked how he ended up in the hospital thinks that it was because he has not been walking and has been weak. Currently denies any pain. So far has had no recurrence of vomiting. Reports that at home has been having trouble speaking, occasionally gurgling. Vitals/I&O/Wt Last Vital Signs Temp 97.8 F 05/14/20 09:00 Pulse 81 05/14/20 08:00 Resp 17 05/14/20 08:00 BP 96/58 05/14/20 08:00 Pulse Ox 98 05/14/20 08:00 05/13/20 05/14/20 05/14/20 22:59 06:59 14:59 Intake Total 1790 / 2840 150 / 2990 120 / 120 Output Total 280 / 280 Balance 1790 / 2840 -130 / 2710 120 / 120 Weight last 48 hrs Weight 49.243 kg Weight 68.039 kg Physical Exam Const: COMMON NORMALS: no acute distress, patient oriented x3 and alert GENERAL APPEARANCE: cooperative and frail appearing ORIENTATION/CONSCIOUSNESS: Yes awake OTHER: He is awake and alert. Not a good historian. Dysphonia, dysarthria. HENMT: COMMON NORMALS: oropharynx normal Neck/C-Spine: COMMON NORMALS: no JVD Resp: COMMON NORMALS: normal respiratory effort AUSCULTATION: rhonchi Cardio: COMMON NORMALS: no JVD, regular rhythm, S1 normal heart sound present, S2 normal heart sound present and No murmurs present (Cardio) RHYTHM: regular rhythm HEART SOUNDS: S1 normal heart sound present and S2 normal heart sound present GI: COMMON NORMALS: Normal to inspection, nondistended, normoactive bowel sounds present, Soft to palpation and non-tender PALPATION: Yes Soft to palpation Extremity: COMMON NORMALS: no joint enlargement and no pedal edema Neuro: COMMON NORMALS: patient oriented x3 and moves all extremities SENSORIUM/ORIENTATION: Yes alert Skin: COMMON NORMALS: no rashes or lesions noted GENERAL SKIN EXAM: no rashes or lesions noted LESIONS: lesion noted (Skin breakdown on the bottom.) OTHER: Hyperpigmentation. Data : 05/14/20 03:50 05/14/20 03:50 Micro: Microbiology 05/14/20 02:25 Legionella Urinary Antigen - Final Urine,Clean Catch 05/13/20 11:19 Blood Culture - Preliminary Blood SPECIMEN COLLECTED 05/13/20 11:05 Blood Culture - Preliminary Blood SPECIMEN COLLECTED A&P Assessment and plan (1) Septic shock: Blood pressure still somewhat soft, but remained stable. Did not require pressor support. Remains around 100 systolic. Lactic acid improved. Acute kidney injury improving. Oxygenation has been stable. May be will transfer to continue care on medical floor. Blood cultures, sputum cultures requested. Hypotensive, although maintaining borderline blood pressures after fluid challenge in ER. With acute on chronic adrenal sufficiency as below. Severe sepsis with lactic acidosis, acute renal failure. He also appears to have some confusion over his normally is perhaps better oriented with better insight, and so encephalopathy related to sepsis and acute infection is possible as discussed with his and son. Zosyn + linezolid given HAMLET. Check MRSA PCR. Follow culture results. High concern for aspiration event, especially given episode of vomiting this morning. Abdomen is soft. Says appetite is good. No abdominal pain or diarrhea. Intermittent episodes of vomiting in the morning especially after eating at night. Confusion is better. Some insight into his condition. Status: Acute (2) Adrenal insufficiency: Chronic adrenal insufficiency, on chronic prednisone. Currently acute renal sufficiency secondary to pneumonia, acute illness with septic shock. Received methylprednisolone in ER, will continue this also for COPD exacerbation. Continue methylprednisolone, taper down as tolerating. Status: Acute (3) Recurrent aspiration pneumonia: Still persistent rhonchi, he does say his breathing is feeling somewhat better. His oxygen requirement appears to be decreasing. Currently pneumonia right lower lobe. Also COPD exacerbation. Productive cough which started sometime 05/12. Antibiotics as above. Continue steroids. Follow sputum culture. Breathing treatments. Check urine bacterial antigens. Dysphagia diet. Speech therapy evaluation. Discussed with both his and son. Unfortunately given overall trajectory, functional decline, recurrent aspiration pneumonia, his prognosis long-term is not good. It seems that feeding tube was discussed with him during last admission here. Appears that he elected not to pursue this option, although it is not clear how much benefit it may actually provide long-term given his otherwise overall prognosis does not look good. Request records from hospitalization from [facility] and see if there were any updates with regards to this. Status: Acute (4) Vomiting: Currently without recurrence. Episode of vomiting this morning. Reports he has occasionally some vomiting in the morning, especially if he eats at night. And long-term prednisone, although they are not aware of history of diabetes. May benefit from assessment by gastric emptying study once he is more stable. A1c is good at 4.8. PPI given chronic steroid. Status: Acute (5) Acute kidney injury: Improving. Monitor. Suspected is prerenal due to hypotension, seems like his blood pressure was soft already yesterday, with some more productive cough. At this time hold Lasix for now without additional fluids. Status: Resolved (6) Sarcopenia: He is very thin, with muscle loss. Weight in ER is noted as 149 pounds, however, per discussion with son recently weight at the care home was closer to 103 pounds. Son reports continued weight loss over the last year. This appears to be despite being on prednisone. Requested for repeat weight measurement. Status: Acute (7) Declining functional status: Overall functional decline, with progressive weight loss, declining functional capacity, requiring assistance with transfers, has been progressively becoming mostly nonambulatory. Given overall trajectory, and also with her current suspect aspiration pneumonia prognosis overall is probably not good. At this time will treat acute illness as above. Once he is more stable assessment by PT, OT. Continue speech therapy follow-up which reportedly he has been getting over at SNF as well. Consider adding protein shakes for sarcopenia. Mobilize as tolerating. Son is considering how much more his father can take given his overall condition has been gradually declining over at least the last year. Continue readdressing goals of care depending on his progress and recovery after the acute illness. 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 Plans were for possibly follow-up with outpatient angiogram if he were agreeable. At this time continue cardiac medications. Other chronic medical problems. Attestations Medical Necessity Statement*: Continue admission versus management of recurrence of pneumonia likely aspiration, improving sepsis, adrenal insufficiency, improving acute kidney injury. Coding Level of Care Code Acute Hyster Driver for [facility] Fwd Diagnoses Septic shock A41.9; R65.21 Adrenal insufficiency E27.40 Recurrent aspiration pneumonia J69.0 Vomiting R11.10 Acute kidney injury N17.9 Sarcopenia M62.84 Declining functional status R53.81
[2020-05-14] MEDS: polyethylene glycol 3350 Pkt 17 gm PO (09:32)
[2020-05-14] MEDS: gabapentin 300 mg Capsule PO ×2 (09:32→17:57)
[2020-05-14] MEDS: pantoprazole 40 mg SDV IVP (09:59)
--- NOTE | 2020-05-14 19:16 | PC.NURSE ---
Belongings brought in patients belongings, teeth, electric razor (educated not to use since oxygen is in use), clothing.
[2020-05-14] MEDS: sennosides-docusate Tablet 2 TAB PO (20:04)
[2020-05-14] MEDS: atorvastatin 40 mg Tablet 20 MG PO (20:04)
[2020-05-15] VITALS (31 sets, daily range): BP systolic 74–145; BP diastolic 40–93; PULSE 76–107; RESP 16–29; TEMP 36.5; O2SAT 91–99; BMI 18.1
[2020-05-15] MEDS: ipratropium-albuterol 3 mL Neb INHALATION ×4 (02:25→21:02)
[2020-05-15 04:46] LABS: Basophils % 0.2 %; Hemoglobin 9.1 g/dL (11.7-16.6); Lymphocytes # 0.3 10^3/uL (0.8-4.8); Lymphocytes % 2.4 %; Mean Corpuscular HGB Conc 31.4 g/dL (30.0-36.0); Mean Corpuscular Hemoglobin 28.3 pg (28.0-34.0); Mean Corpuscular Volume 90.1 fL (80-94); Monocytes # 0.3 10^3/uL (0.2-0.9); Monocytes % 2.3 %; Neutrophils # 11.85 10^3/uL (1.8-7.7); Neutrophils % 94.7 %; Nucleated Red Blood Cells % 0 %; Platelet Count 246 10^3/cmm (130-400); Red Blood Count 3.22 10^6/uL (4.1-5.3); Red Cell Distribution Width 14.4 % (12.1-15.1); White Blood Count 12.5 10^3/uL (4.0-10.0)
[2020-05-15] MEDS: linezolid premix 600 MG/300 ML PREMIX 300 MG IV ×2 (05:12→17:50)
[2020-05-15] MEDS: heparin 5,000 unit/mL INJ 1 mL 5000 UNIT SUBCUT (05:15)
[2020-05-15 05:38] LABS: Alanine Aminotransferase 10 U/L (0-41); Albumin Level 2.6 g/dL (3.5-5.2); Alkaline Phosphatase 71 IU/L (40-130); Anion Gap 13.8 (5-19); Aspartate Amino Transferase 21 U/L (0-40); Blood Urea Nitrogen 30 mg/dL (8-23); Carbon Dioxide 21 mmol/L (22-29); Chloride 108 mmol/L (98-107); Globulin 2.8 g/dL (1.3-4.6); Glucose 124 mg/dL (65-115); Magnesium 1.8 mg/dL (1.7-2.3); Osmolality Calculated 289 mOsm/kg (285-295); Sodium 140 mmol/L (136-145); Total Bilirubin 0.6 mg/dL (0.15-1.2); Total Protein 5.4 g/dL (6.6-8.7)
[2020-05-15 05:43] LABS: Potassium 2.8 mmol/L (3.5-5.1)
[2020-05-15] MEDS: potassium chloride premix 40 MEQ/100 ML PREMIX 25 MEQ IV (07:01)
[2020-05-15] MEDS: lidocaine 1% INJ 20 mL 5 ML IV (07:10)
--- NOTE | 2020-05-15 08:03 | USCV_ITS ---
Lg Lund Age: 79 Gender: M : 1940 Exam Date: 05/15/2020 08:44 Ordering Phys: Jd Smith MD Technologist: Umberto Brown Exam Location: [facility] – [place] Indication: SOB BP: 115 / 90 HR: 94 Rhythm: Sinus Technical Quality: Adequate MEASUREMENTS (Male / Female) Normal Values 2D ECHO LV Diastolic Diameter PLAX 4.5 cm 4.2 - 5.9 / 3.9 - 5.3 cm LV Systolic Diameter PLAX 2.4 cm IVS Diastolic Thickness 0.8 cm 0.6 - 1.0 / 0.6 - 0.9 cm IVS Systolic Thickness 0.9 cm LVPW Diastolic Thickness 0.8 cm 0.6 - 1.0 / 0.6 - 0.9 cm LVPW Systolic Thickness 1.0 cm LVOT Diameter 2.0 cm LV Ejection Fraction 2D Teich 78.1 % LV Ejection Fraction MOD 2C 53.9 % LV Ejection Fraction 2C AL 54.4 % LA Diameter 4.3 cm LA Width 2.8 cm LA Height 4.0 cm RA Width 3.2 cm RA Height 4.6 cm Aorta at Sinotubular Diameter 1.1 cm M-MODE LV Diastolic Diameter MM 5.8 cm 4.2 - 5.9 / 3.9 - 5.3 cm LV Systolic Diameter MM 4.6 cm LV Ejection Fraction MM Teich 42.1 % IVS Diastolic Thickness MM 0.8 cm 0.6 - 1.0 / 0.6 - 0.9 cm IVS Systolic Thickness MM 1.5 cm LVPW Diastolic Thickness MM 1.2 cm 0.6 - 1.0 / 0.6 - 0.9 cm LVPW Systolic Thickness MM 1.6 cm RV Diastolic Diameter MM 1.4 cm Aortic Annulus Diameter 3.7 cm LA Ao Ratio MM 1.2 MV E Point Septal Separation 2.5 cm DOPPLER AV Peak Velocity 123.0 cm/s LVOT Peak Velocity 97.0 cm/s AV Area Cont Eq vti 2.7 cm squared AV Area Cont Eq pk 2.5 cm squared MV Area PHT 5.0 cm squared Mitral E to A Ratio 0.9 MV E' Velocity 9.0 cm/s Mitral E to MV E' Ratio 10.1 Mitral E to LV E' Lateral Ratio 9.7 Mitral E to LV E' Septal Ratio 10.6 TR Peak Velocity 108.0 cm/s TR Peak Gradient 4.6 mmHg TV Peak E Velocity 74.0 cm/s Right Atrial Pressure 3.0 mmHg Pulmonary Artery Systolic Pressu 7.7 mmHg PV Peak Velocity 87.0 cm/s FINDINGS Left Ventricle Normal left ventricular cavity size. Normal left ventricular systolic function. No regional wall motion abnormalities. Left ventricular ejection fraction is estimated at 55 %. Grade I/IV diastolic dysfunction (abnormal relaxation filling pattern), normal to mildly elevated filling pressures. Right Ventricle The right ventricle is normal in size and function. Right Atrium The right atrium is normal in size. Left Atrium The left atrium is normal in size. Mitral Valve Moderately thickened mitral valve. No mitral valve stenosis. No mitral valve regurgitation. Aortic Valve Moderate aortic valve calcification. No aortic valve stenosis. No aortic valve regurgitation. Tricuspid Valve Structurally normal tricuspid valve without significant stenosis or regurgitation. Pulmonary artery systolic pressure is normal. Pulmonic Valve Structurally normal pulmonic valve without significant stenosis. There is no pulmonic regurgitation. Pericardium Normal pericardium without effusion. Aorta Normal ascending aorta dimension. CONCLUSIONS 1-Normal left ventricular cavity size. Normal left ventricular systolic function. No regional wall motion abnormalities. Left ventricular ejection fraction is estimated at 55 %. Grade I/IV diastolic dysfunction (abnormal relaxation filling pattern), normal to mildly elevated filling pressures. 2-There is no pericardial effusion. 3-No significant valve abnormalities. 4-Pulmonary artery systolic pressure is within normal limits. 5-Right atrial pressure is around 5 mm of mercury. 6-No significant change since the prior echocardiogram study of 04/03/20. Ana Lilia Richardson MD (Electronically Signed) Final Date: 15 May 2020 22:30 S
[2020-05-15] MEDS: piperacillin-tazobactam 3.375 GM in sodium chloride 0.9% (plus) 50 ML IV ×2 (08:12→17:52)
--- NOTE | 2020-05-15 09:23 | P.PN_ITS ---
Subjective Subjective: Interval history: Blood pressure has been on and off low through the night, although there were some difficulties with getting the pressures with cough placement due to fragile skin, and need to replace several IVs due to oozing blood because of how thin his skin is. He himself otherwise says that today he is doing all right. Denies chest pain or pressure, shortness of breath, or pain anywhere else. Says that he is feeling like his usual self. Vitals/I&O/Wt Last Vital Signs Temp 97.7 F 05/15/20 00:00 Pulse 93 05/15/20 08:13 Resp 22 H 05/15/20 08:10 BP 96/53 05/15/20 08:00 Pulse Ox 96 05/15/20 08:10 05/14/20 05/15/20 05/15/20 22:59 06:59 14:59 Intake Total 720 / 1010 50 / 1060 480 / 480 Output Total 300 / 300 200 / 500 Balance 420 / 710 -150 / 560 480 / 480 Weight last 48 hrs Weight 50.802 kg Weight 52.707 kg Weight 49.243 kg Weight 68.039 kg Physical Exam Const: COMMON NORMALS: no acute distress, patient oriented x3 and alert GENERAL APPEARANCE: cooperative and frail appearing ORIENTATION/CONSCIOUSNESS: Yes awake OTHER: He is awake and alert. Dysphonia, dysarthria. HENMT: COMMON NORMALS: oropharynx normal Neck/C-Spine: COMMON NORMALS: no JVD Resp: COMMON NORMALS: normal respiratory effort AUSCULTATION: rhonchi Cardio: COMMON NORMALS: no JVD, regular rhythm, S1 normal heart sound present, S2 normal heart sound present and No murmurs present (Cardio) RHYTHM: regular rhythm HEART SOUNDS: S1 normal heart sound present and S2 normal heart sound present GI: COMMON NORMALS: Normal to inspection, nondistended, normoactive bowel sounds present, Soft to palpation and non-tender PALPATION: Yes Soft to palpation Extremity: COMMON NORMALS: no joint enlargement and no pedal edema Neuro: COMMON NORMALS: patient oriented x3 and moves all extremities SENSORIUM/ORIENTATION: Yes alert Skin: COMMON NORMALS: no rashes or lesions noted GENERAL SKIN EXAM: no rashes or lesions noted LESIONS: lesion noted (Skin breakdown on the bottom.) OTHER: Hyperpigmentation. Data : 05/15/20 04:23 05/15/20 04:23 Micro: Microbiology 05/13/20 11:19 Blood Culture - Preliminary Blood Gram Negative Rods 05/13/20 11:05 Blood Culture - Preliminary Blood NEGATIVE TO DATE 05/13/20 19:27 MRSA Culture - Final Nose 05/13/20 11:27 Urine Culture - Preliminary Urine,Clean Catch 05/14/20 02:25 Bacterial Antigens - Final Urine,Voided A&P Assessment and plan (1) Septic shock: Blood pressure still soft. Last night was given a small bolus of LR. This morning mean arterial pressure 59. Having assessment by TTE. For now will give bolus of albumin. Subjectively he is doing okay. Septic shock I suspect as improved, but does have adrenal insufficiency, and will have to see what his LV function is like as well given recent non-STEMI. Blood cultures 05/13 with gram negative rods. Follow ID and sensitivity. Repeat UA. CTAP oral contrast. At this time continue Zosyn. MRSA PCR is positive as well as will continue linezolid. Sputum cultures requested. Severe sepsis with lactic acidosis, acute renal failure. HAMLET improving. Confusion improved. Abdomen is soft. Says appetite is good. No abdominal pain or diarrhea. Intermittent episodes of vomiting in the morning especially after eating at night. Confusion is better. Some insight into his condition. Status: Acute (2) Adrenal insufficiency: Chronic adrenal insufficiency, on chronic prednisone. Currently acute renal sufficiency secondary to pneumonia, acute illness with septic shock. Received methylprednisolone in ER, will continue this also for COPD exacerbation. Continue methylprednisolone, taper down as tolerating. For now continue the same given hypotension. Status: Acute (3) Recurrent aspiration pneumonia: Still persistent rhonchi, he does say his breathing is feeling somewhat better. His oxygen requirement appears to be decreasing. Currently pneumonia right lower lobe. Also COPD exacerbation. Productive cough which started sometime 05/12. Antibiotics as above. Continue steroids. Follow sputum culture. MRSA PCR positive. Breathing treatments. Check urine bacterial antigens. Dysphagia diet. Speech therapy evaluation. Discussed with both his and son. Unfortunately given overall trajectory, functional decline, recurrent aspiration pneumonia, his prognosis long-term is not good. It seems that feeding tube was discussed with him during last admission here. Appears that he elected not to pursue this option, although it is not clear how much benefit it may actually provide long-term given his otherwise overall prognosis does not look good. Request records from hospitalization from [facility] and see if t here were any updates with regards to this. Status: Acute (4) Vomiting: Currently without recurrence. CTAP oral contrast. Episode of vomiting this morning. Reports he has occasionally some vomiting in the morning, especially if he eats at night. And long-term prednisone, although they are not aware of history of diabetes. May benefit from assessment by gastric emptying study once he is more stable. A1c is good at 4.8. PPI given chronic steroid. Status: Acute (5) Acute kidney injury: Improving. Monitor. Suspected is prerenal due to hypotension, seems like his blood pressure was soft already yesterday, with some more productive cough. At this time hold Lasix for now without additional fluids. Status: Resolved (6) Sarcopenia: He is very thin, with muscle loss. Weight in ER is noted as 149 pounds, however, per discussion with son [facility] 103 [facility]. Son reports continued weight loss over the last year. This appears to be despite being on prednisone. Requested for repeat weight measurement. Status: Acute (7) Declining functional status: Overall functional decline, with progressive weight loss, declining functional capacity, requiring assistance with transfers, has been progressively becoming mostly nonambulatory. Given overall trajectory, and also with her current suspect aspiration pneumonia prognosis overall is probably not good. At this time will treat acute illness as above. Once he is more stable assessment by PT, OT. Continue speech therapy follow-up which reportedly he has been getting over at SNF as well. Consider adding protein shakes for sarcopenia. Mobilize as tolerating. Son is considering how much more his father can take given his overall condition has been gradually declining over at least the last year. Continue readdressing goals of care depending on his progress and recovery after the acute illness. 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 Plans were for possibly follow-up with outpatient angiogram if he were agreeable. At this time continue cardiac medications. Other chronic medical problems. Attestations Medical Necessity Statement*: Continue admission for assessment management of aspiration pneumonia, COPD exacerbation, gram-negative aurelio bacteremia, hypotension, adrenal insufficiency. Coding Level of Care Code Acute Senior Naval Parachutist for [facility] Fwd Exam Comprehensive Diagnoses Septic shock A41.9; R65.21 Adrenal insufficiency E27.40 Recurrent aspiration pneumonia J69.0 Vomiting R11.10 Acute kidney injury N17.9 Sarcopenia M62.84 Declining functional status R53.81
[2020-05-15] MEDS: gabapentin 300 mg Capsule PO ×2 (09:31→17:51)
[2020-05-15] MEDS: polyethylene glycol 3350 Pkt 17 gm PO (09:31)
[2020-05-15] MEDS: pantoprazole 40 mg SDV IVP (09:31)
--- NOTE | 2020-05-15 09:52 | CTR_ITS ---
PROCEDURE INFORMATION: Exam: CT Abdomen And Pelvis Without Contrast Exam date and time: 05/15/2020 1:11 PM Age: 79 years old Clinical indication: Nausea and vomiting; Prior surgery; Surgery type: Gb, kyphoplasty; Additional info: Gram-negative aurelio bacteremia TECHNIQUE: Imaging protocol: Computed tomography of the abdomen and pelvis without contrast. Radiation optimization: All CT scans at this facility use at least one of these dose optimization techniques: automated exposure control; mA and/or kV adjustment per patient size (includes targeted exams where dose is matched to clinical indication); or iterative reconstruction. COMPARISON: US renal BI with bladder 05/14/2020 6:21 AM RADIATION DOSE METRICS: Total DLP (mGy-cm): 544.38 FINDINGS: Liver: Normal. No mass. Gallbladder and bile ducts: There has been a cholecystectomy. Pancreas: Normal. No ductal dilation. Spleen: Normal. No splenomegaly. Adrenals: Normal. No mass. Kidneys and ureters: There are bilateral renal vascular calcifications. No hydronephrosis. Stomach and bowel: Colonic diverticula are present although there are no CT findings to suggest diverticulitis. There is fecal impaction in the rectosigmoid colon. No bowel obstruction. Appendix: No evidence of appendicitis. Intraperitoneal space: Unremarkable. No free air. No significant fluid collection. Vasculature: There is an infrarenal abdominal aortic aneurysm measuring 4.3 cm. No retroperitoneal bleed. Lymph nodes: Unremarkable. No enlarged lymph nodes. Bladder: Unremarkable as visualized. Reproductive: Unremarkable as visualized. Bones/joints: There have been vertebroplasties from L1 through L4. No acute fracture. Soft tissues: Unremarkable. CT/CT abdomen pelvis wo con [id number] IMPRESSION: There are no acute concerning abnormalities. Radiation Dose CTDIVOL = (mGy): DLP = 544.38 (mGy-cm)
--- NOTE | 2020-05-15 10:31 | PC.NURSE ---
right ac iv leaking blood.
--- NOTE | 2020-05-15 10:39 | PC.NURSE ---
iv in left ac was leaking red drainage, appears to be blood, severely. new one to left upper arm.
--- NOTE | 2020-05-15 14:43 | PC.NURSE ---
x3 iv jelcos removed today d/t leaking at site and infiltration. dr. arceo notified. will order midcath.
--- NOTE | 2020-05-15 15:41 | XR_ITS ---
WS: [id number] CHEST XRAY TECHNIQUE: Portable chest. CLINICAL INFORMATION: PICC LINE PLACEMENT COMPARISON: None. FINDINGS: Right PICC in the mid to distal SVC. No pneumothorax. Tortuous thoracic aorta. Chronic emphysematous change. Surgical clips at the thoracic inlet. XR/XR chest 1V portable [id number] IMPRESSION: Right PICC tip in the mid to distal SVC
--- NOTE | 2020-05-15 18:44 | PC.NURSE ---
picc inserted this afternoon. all meds are all out of sequence. got one bag of potassium. said potassium could be changed to po. got 2 bags of albumin to total 25gms
[2020-05-15] MEDS: potassium chloride ER 10 mEq Tablet 40 MEQ PO (19:52)
[2020-05-15] MEDS: atorvastatin 40 mg Tablet 20 MG PO (21:35)
[2020-05-16] VITALS (21 sets, daily range): BP systolic 102–132; BP diastolic 49–81; PULSE 86–126; RESP 14–28; TEMP 36.5–36.9; O2SAT 86–99
[2020-05-16] MEDS: piperacillin-tazobactam 3.375 GM in sodium chloride 0.9% (plus) 50 ML IV ×3 (00:39→15:16)
[2020-05-16 03:34] LABS: Basophils % 0.2 %; Hematocrit 27.4 % (42.0-52.0); Hemoglobin 8.4 g/dL (11.7-16.6); Lymphocytes # 0.2 10^3/uL (0.8-4.8); Lymphocytes % 1.3 %; Mean Corpuscular HGB Conc 30.7 g/dL (30.0-36.0); Mean Corpuscular Hemoglobin 28.5 pg (28.0-34.0); Mean Corpuscular Volume 92.9 fL (80-94); Mean Platelet Volume 10.1 fL (7.4-10.4); Monocytes # 0.3 10^3/uL (0.2-0.9); Monocytes % 2.2 %; Neutrophils # 11.36 10^3/uL (1.8-7.7); Neutrophils % 95.7 %; Nucleated Red Blood Cells % 0 %; Platelet Count 234 10^3/cmm (130-400); Red Blood Count 2.95 10^6/uL (4.1-5.3); Red Cell Distribution Width 14.8 % (12.1-15.1); White Blood Count 11.9 10^3/uL (4.0-10.0)
[2020-05-16] MEDS: ipratropium-albuterol 3 mL Neb INHALATION ×3 (03:56→20:12)
[2020-05-16 04:04] LABS: Alanine Aminotransferase 10 U/L (0-41); Alkaline Phosphatase 75 IU/L (40-130); Anion Gap 11.6 (5-19); Aspartate Amino Transferase 22 U/L (0-40); Blood Urea Nitrogen 21 mg/dL (8-23); Calcium 8.6 mg/dL (8.5-10.5); Carbon Dioxide 23 mmol/L (22-29); Chloride 110 mmol/L (98-107); Globulin 2.4 g/dL (1.3-4.6); Glucose 102 mg/dL (65-115); Osmolality Calculated 289 mOsm/kg (285-295); Potassium 3.6 mmol/L (3.5-5.1); Sodium 141 mmol/L (136-145); Total Bilirubin 0.7 mg/dL (0.15-1.2); Total Protein 5.4 g/dL (6.6-8.7)
[2020-05-16] MEDS: linezolid premix 600 MG/300 ML PREMIX 300 MG IV ×2 (05:46→17:06)
--- NOTE | 2020-05-16 06:33 | PC.NURSE ---
Shift Events: Patient much more alert and active in care this shift. Patient is anxious to start PT and OT so that he can get better to go home. He has questions about his heart. Patient states that he thought the physician said his heart was not doing well but was unable to specify what is bad about his heart. Rested periodically throughout the night. Adequate urine output. Offered snacks but refused. Positioned on pillows to help with pressure sores on coccyx and sacrum. PICC flushes well with good blood return. VSS.
--- NOTE | 2020-05-16 08:17 | PM.PN ---
Subjective Subjective: Interval history: This morning he says he is doing all right. Denies any pain or discomfort. Says his breathing is comfortable. Knows he is at the [facility] currently although this apparently has been a little bit on and off during the night. Knows it is 2020. Denies any chest pain. Says he is not coughing. Denies any dizziness or presyncope. Says he is currently feeling like his usual self. Vitals/I&O/Wt Last Vital Signs Temp 97.7 F 05/16/20 00:00 Pulse 98 05/16/20 08:15 Resp 20 H 05/16/20 08:11 BP 102/63 05/16/20 04:00 Pulse Ox 98 05/16/20 08:11 05/15/20 05/16/20 05/16/20 22:59 06:59 14:59 Intake Total 690 / 1450 50 / 1500 Output Total 281 / 281 220 / 501 200 / 200 Balance 409 / 1169 -170 / 999 -200 / -200 Weight last 48 hrs Weight 51.619 kg Weight 50.802 kg Weight 52.707 kg Physical Exam Const: COMMON NORMALS: no acute distress, patient oriented x3 and alert GENERAL APPEARANCE: cooperative and frail appearing ORIENTATION/CONSCIOUSNESS: Yes awake OTHER: He is awake and alert. Dysphonia, dysarthria. Appears stronger. HENMT: COMMON NORMALS: oropharynx normal Neck/C-Spine: COMMON NORMALS: no JVD Resp: COMMON NORMALS: normal respiratory effort AUSCULTATION: rhonchi (Today minimal. Much better than previously.) Cardio: COMMON NORMALS: no JVD, regular rhythm, S1 normal heart sound present, S2 normal heart sound present and No murmurs present (Cardio) RHYTHM: regular rhythm HEART SOUNDS: S1 normal heart sound present and S2 normal heart sound present GI: COMMON NORMALS: Normal to inspection, nondistended, normoactive bowel sounds present, Soft to palpation and non-tender PALPATION: Yes Soft to palpation Extremity: COMMON NORMALS: no joint enlargement and no pedal edema Neuro: COMMON NORMALS: patient oriented x3 and moves all extremities SENSORIUM/ORIENTATION: Yes alert Skin: COMMON NORMALS: no rashes or lesions noted GENERAL SKIN EXAM: no rashes or lesions noted LESIONS: lesion noted (Skin breakdown on the bottom.) OTHER: Hyperpigmentation. Data : 05/16/20 02:50 05/16/20 02:50 Micro: Microbiology 05/13/20 11:27 Urine Culture - Final Urine,Clean Catch 05/13/20 11:19 Blood Culture - Preliminary Blood Gram Negative Rods A&P Assessment and plan (1) Septic shock: Blood pressure is actually better this morning. Appears to have good response to albumin infusion yesterday. At this time will transfer out of ICU. Continue monitoring on medical floor. TTE with normal ejection fraction, grade 1 diastolic dysfunction. No valve abnormalities. Subjectively he is doing okay. Septic shock I suspect as improved, but does have adrenal insufficiency, and will have to see what his LV function is like as well given recent non-STEMI. Blood cultures 05/13 with gram negative rods. Follow ID and sensitivity. Repeat UA. CTAP oral without acute abnormalities. At this time continue Zosyn. MRSA PCR is positive as well as will continue linezolid. Sputum cultures requested. Severe sepsis with lactic acidosis, acute renal failure. HAMLET improving. Confusion improved but reported on and off does not remember that he is in the hospital. Abdomen is soft. Says appetite is good. No abdominal pain or diarrhea. Intermittent episodes of vomiting in the morning especially after eating at night. Status: Acute (2) Adrenal insufficiency: Chronic adrenal insufficiency, on chronic prednisone. We will try to cut down methylprednisolone. Acute on chronic adrenal sufficiency secondary to pneumonia, acute illness with septic shock. Received methylprednisolone in ER, will continue this also for COPD exacerbation. Continue methylprednisolone, taper down as tolerating. For now continue the same given hypotension. Status: Acute (3) Recurrent aspiration pneumonia: Sounds better. Oxygenation stable. Reinforced again with him to exercise caution while he is eating or drinking. Currently pneumonia right lower lobe. Also COPD exacerbation. Productive cough which started sometime 05/12. Antibiotics as above. Taper off steroids. Follow sputum culture. MRSA PCR positive. Breathing treatments. Negative urine bacterial antigens. Dysphagia diet. Speech therapy evaluation. As discussed with both his and son. Unfortunately given overall trajectory, functional decline, recurrent aspiration pneumonia, his prognosis long-term is not good. It seems that feeding tube was discussed with him during last admission here. Appears that he elected not to pursue this option, although it is not clear how much benefit it may actually provide long-term given his otherwise overall prognosis does not look good. Requested records from hospitalization from [facility]. Status: Acute (4) Vomiting: Without recurrence. CTAP oral contrast unremarkable. Episode of vomiting this morning. Reports he has occasionally some vomiting in the morning, especially if he eats at night. And long-term prednisone, although they are not aware of history of diabetes. May benefit from assessment by gastric emptying study once he is more stable. A1c is good at 4.8. PPI given chronic steroid. Status: Acute (5) Acute kidney injury: Improving. Monitor. Suspected is prerenal due to hypotension, seems like his blood pressure was soft already yesterday, with some more productive cough. At this time hold Lasix for now without additional fluids. Status: Resolved (6) Sarcopenia: He is very thin, with muscle loss. Weight in ER is noted as 149 pounds, however, per discussion with son recently weight at the [place] [facility] was closer to 103 pounds. Son reports continued weight loss over the last year. This appears to be despite being on prednisone. Requested for repeat weight measurement. Status: Acute (7) Declining functional status: Overall functional decline, with progressive weight loss, declining functional capacity, requiring assistance with transfers, has been progressively becoming mostly nonambulatory. Given overall trajectory, and also with her current suspect aspiration pneumonia prognosis overall is probably not good. At this time will treat acute illness as above. Once he is more stable assessment by PT, OT. Continue speech therapy follow-up which reportedly he has been getting over at SNF as well. Add protein shakes for sarcopenia. Mobilize as tolerating. Continue readdressing goals of care depending on his progress and recovery after the acute illness. Status: Acute Additional A&P Information Chronic steroid use: Very thin skin, prone to tears, wheezing and bleeding, as well as multiple IVs. PICC line had to be placed due to poor IV access. 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 Plans were for possibly follow-up with outpatient angiogram if he were agreeable. At this time continue cardiac medications. Other chronic medical problems. Attestations Medical Necessity Statement*: Continue admission for assessment of management of aspiration pneumonia acute adrenal insufficiency. 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
[2020-05-16] MEDS: pantoprazole 40 mg SDV IVP (09:44)
[2020-05-16] MEDS: polyethylene glycol 3350 Pkt 17 gm PO (09:44)
[2020-05-16] MEDS: gabapentin 300 mg Capsule PO ×2 (09:44→17:06)
--- NOTE | 2020-05-16 10:44 | PC.NURSE ---
Report called to OCTAVIANO Carter on medsurg. Patient taken to room 264-1 by this nurse, belongings with patient.
--- NOTE | 2020-05-16 11:19 | PC.NURSE ---
264-1 at 1110. Charge nurse, Inés, at bedside. Call light with patient, bed alarm on.
--- NOTE | 2020-05-16 11:22 | PC.NURSE ---
, Jerrica, called and updated on patient and transfer to [facility].
--- NOTE | 2020-05-16 11:26 | PC.SOCIAL ---
IMM completed on 05/16/2020 at 1048. Copy of rights provided.
[2020-05-16 12:43] LABS: Add Urine Microscopic? NO
[2020-05-16 12:47] LABS: Bilirubin Urine Neg (Negative); Blood Urine Neg (Negative); Glucose Urine UA Norm (Normal); Ketones Urine Negative (Negative); Leukocyte Esterase Urine Negative (Negative); Nitrate Urine Negative (Negative); Protein Urine Neg (Negative); Specific Gravity, Urine 1.015 (1.005-1.030); Urine Appearance Clear (CLEAR); Urine Color Yellow (Yellow); Urobilinogen Urine Norm (Negative)
--- NOTE | 2020-05-16 13:34 | PC.OT ---
Attempted therapy evaluation this date however patient refused citing, I don't need to move...IT makes things worse. Patient pulling both thighs to chest pointing to pain in the back of his legs. Contacted RN to provide pain meds. Will attempt evaluation tomorrow.
--- NOTE | 2020-05-16 20:00 | PC.SLP ---
Discussed the pt's swallowing with the pt. He indicates that he is doing bettr with dentures, but has decreased appetite. He indicates that he is at his baseline in terms of swallowing. The pt will continue oral consumption with aspiration risk. He is aware.
[2020-05-16] MEDS: atorvastatin 40 mg Tablet 20 MG PO (21:31)
[2020-05-16] MEDS: sennosides-docusate Tablet 2 TAB PO (21:31)
[2020-05-17] VITALS (14 sets, daily range): BP systolic 105–143; BP diastolic 68–96; PULSE 87–111; RESP 16–32; TEMP 35.9–36.9; O2SAT 91–100
[2020-05-17] MEDS: LORazepam 2 mg/mL INJ 1 mL 1 MG IVP (00:32)
[2020-05-17] MEDS: piperacillin-tazobactam 3.375 GM in sodium chloride 0.9% (plus) 50 ML IV ×3 (00:33→16:58)
[2020-05-17] MEDS: ipratropium-albuterol 3 mL Neb INHALATION ×3 (03:25→20:13)
[2020-05-17] MEDS: morphine 4 mg/mL SDV 1 mL 2 MG IVP ×3 (04:20→14:57)
--- NOTE | 2020-05-17 04:35 | P.EN_ITS ---
Event Note Event Note: Called by nursing staff due to patient's constant restlessness, attempts to get out of bed for most of this shift. During my assessment at bedside he is very restless, intermittently grimacing particularly when touched or during attempt to check blood pressure. He is very congested particularly in the upper airway, I am quite concerned about aspiration. Patient's care nurse states that he took his night meds without any noted choking, throat clearing or coughing. We will keep him n.p.o. for now and request one-on-one sitter. He had received a dose of Ativan earlier due to noted restlessness and seem to have rested some for approximately 2 hours. He is reporting what seems to be air h denia and constantly trying to reposition his bottom, has noted breakdown in the sacrum. Will try dose of morphine for both air hunger and pain control. Patient's care nurse Ada and charge nurse Guillermina updated at bedside. Review of chart shows that he had a chest x-ray yesterday following PICC line placement, increased oxygen to 4 L with saturation in the 90s. He does have known diastolic CHF, does not seem overtly fluid overloaded and is not on any fluids currently. He is already on IV steroids, Zosyn and Zyvox. He has already been assessed by speech therapy but may need re-evaluation in the morning. AM labs pending. BP stable, noted tachycardia and tachypnea, afebrile. Sputum culture pending, gram stain positive for yeast. Legionella and bacterial antigens negative, MRSA positive. 1/4 bottles positive for GNRs, order repeat set. Event Notes Attestations Time Spent in Patient Care: 16 - 35 minutes (>than 50% of time spent in counselling and/or direct pt care on unit) .
[2020-05-17] MEDS: LORazepam 2 mg/mL INJ 1 mL IVP ×2 (04:49→08:45)
--- NOTE | 2020-05-17 05:10 | PC.NURSE ---
05/17/20 0510 Upon first rounds with patient at 1900 this nurse noted patient was on RA and slightly SOB, PT O2 sat was 90, RT Laura put 2L O2 NC on pt and PTs sat was 96. PT still seemed SOB and lung sounds were rhonchi bilaterally. This nurse did full assessment and gave PO meds and PO swallowed PO meds without difficulty. PT was AAOx2 and able to state name, , and that he was in hospital. PT began trying to climb out of bed after this nurse left the room, when asked what he needed he stated, i need to go home and be with my , this nurse explained to the pt that he was not strong enough yet to go home and still needed some IV antibiotics. The PT was persistently attempting to get out of bed and setting off bed alarm. This nurse called Pt's because pt requested to speak with her, they spoke for about 5 minutes and pt seemed to calm down. Further in the shift around 2300 pt was trying to get out of bed again and was short of breath, restless, agitated and was stating that he was in pain. This nurse had already medicated pt with dilaudid. This nurse notified Provider Dr. Shweta Boles of the pts status change. VS were WNL with O2 sats 96-97% on 2L. Elvi ordered 1 mg Ativan Q8H PRN, this was administered and pt slept for approx. 2 hours. Around 0230 pt was becoming agitated again, stripping off telemetry, oxygen, and clothing. PT was climbing out of bed when RT was in assessing him, RT was trying to redirect pt back to bed but pt began pushing against RT forcing his way out of bed. This nurse went to pt bedside and was helping hold the pt, the pt began to become weak and not able to bear his own weight and was being held up by staff, PT was urinating and having BM in the floor as staff was trying to transfer him to bed. PT was very resistive to care and required constant redirection to stay in bed. This nurse called Dr oBles at 0356 to come assess pt as pt seemed to be in increasing shortness of breath and agitation. Dr Boles came and assessed pt and changed pt diet orders to NPO, ordered a 1:1 sitter and added PRN meds ativan 2mg, haldol, morphine 2mg and atropine. This nurse changed bed linens, did dressing change on pts sacrum, and repositioned pt on his side.
[2020-05-17 06:04] LABS: Basophils % 0.1 %; Hematocrit 31.2 % (42.0-52.0); Hemoglobin 9.2 g/dL (11.7-16.6); Lymphocytes # 0.2 10^3/uL (0.8-4.8); Lymphocytes % 1.2 %; Mean Corpuscular HGB Conc 29.5 g/dL (30.0-36.0); Mean Corpuscular Hemoglobin 27.9 pg (28.0-34.0); Mean Corpuscular Volume 94.5 fL (80-94); Mean Platelet Volume 9.9 fL (7.4-10.4); Monocytes # 0.5 10^3/uL (0.2-0.9); Monocytes % 3.4 %; Neutrophils # 14.33 10^3/uL (1.8-7.7); Neutrophils % 94.4 %; Nucleated Red Blood Cells % 0 %; Platelet Count 254 10^3/cmm (130-400); Red Cell Distribution Width 15.2 % (12.1-15.1); White Blood Count 15.2 10^3/uL (4.0-10.0)
[2020-05-17] MEDS: linezolid premix 600 MG/300 ML PREMIX 300 MG IV ×2 (06:14→18:48)
--- NOTE | 2020-05-17 06:19 | PC.NURSE ---
05/17/20 06 This nurse went in to administer morning meds PT was resting with eyes closed and would not wake up to take morning meds, PT had been medicated earlier at 0400 with ativan and morphine. PT is on aspiration precautions, this nurse did not administer the ethambutol 800 mg d/t pt's inability to swallow.
[2020-05-17 06:23] LABS: Alanine Aminotransferase 14 U/L (0-41); Albumin Level 3.1 g/dL (3.5-5.2); Alkaline Phosphatase 75 IU/L (40-130); Anion Gap 14.4 (5-19); Aspartate Amino Transferase 33 U/L (0-40); Blood Urea Nitrogen 19 mg/dL (8-23); Calcium 8.6 mg/dL (8.5-10.5); Carbon Dioxide 23 mmol/L (22-29); Chloride 110 mmol/L (98-107); Globulin 2.5 g/dL (1.3-4.6); Glucose 88 mg/dL (65-115); Osmolality Calculated 294 mOsm/kg (285-295); Potassium 3.4 mmol/L (3.5-5.1); Sodium 144 mmol/L (136-145); Total Bilirubin 0.8 mg/dL (0.15-1.2); Total Protein 5.6 g/dL (6.6-8.7)
[2020-05-17] MEDS: pantoprazole 40 mg SDV IVP (08:34)
--- NOTE | 2020-05-17 09:37 | P.PN_ITS ---
Subjective Subjective: Interval history: He is persistently confused, through the night progressive confusion, initially crying out of bed, one-to-one sitter was ordered, this morning seeing him prescription with the nurse reportedly did answer a very busy question earlier, but for me he is not responding, moving about the bed, pulling off his gown. Vitals/I&O/Wt Last Vital Signs Temp 96.8 F L 05/17/20 08:00 Pulse 93 05/17/20 09:16 Resp 20 H 05/17/20 09:07 BP 143/96 05/17/20 08:00 Pulse Ox 93 05/17/20 09:07 05/16/20 05/17/20 05/17/20 22:59 06:59 14:59 Intake Total 470 / 1000 110 / 1110 Balance 470 / 800 110 / 910 Weight last 48 hrs Weight 48.733 kg Weight 51.619 kg Physical Exam Const: COMMON NORMALS: no acute distress and alert; negative for patient oriented x3 GENERAL APPEARANCE: cooperative and frail appearing ORIENTATION/CONSCIOUSNESS: Yes confused OTHER: Confused, restless, wiggling around in bed, pulling on his gown HENMT: COMMON NORMALS: oropharynx normal Neck/C-Spine: COMMON NORMALS: no JVD Resp: COMMON NORMALS: normal respiratory effort AUSCULTATION: rhonchi and wheezes Cardio: COMMON NORMALS: no JVD, regular rhythm, S1 normal heart sound present, S2 normal heart sound present and No murmurs present (Cardio) RHYTHM: regular rhythm HEART SOUNDS: S1 normal heart sound present and S2 normal heart sound present GI: COMMON NORMALS: Normal to inspection, nondistended, normoactive bowel so unds present, Soft to palpation and non-tender PALPATION: Yes Soft to palpation Extremity: COMMON NORMALS: no joint enlargement and no pedal edema Neuro: COMMON NORMALS: moves all extremities; negative for patient oriented x3 SENSORIUM/ORIENTATION: Yes alert Skin: COMMON NORMALS: no rashes or lesions noted GENERAL SKIN EXAM: no rashes or lesions noted LESIONS: lesion noted (Skin breakdown on the bottom.) OTHER: Hyperpigmentation. Data : 05/17/20 05:42 05/17/20 05:42 Micro: Microbiology 05/16/20 17:15 Gram Stain - Final Sputum - Expectorated Sputum 05/17/20 05:44 Blood Culture - Preliminary Blood SPECIMEN COLLECTED 05/17/20 05:42 Blood Culture - Preliminary Blood SPECIMEN COLLECTED A&P Assessment and plan (1) Recurrent aspiration pneumonia: Overnight confused, very restless, required one-to-one sitter. This morning not following commands, not responding, moving about the bed, pulling off his gown. Lungs with diffuse rhonchi, wheezing, he is not following commands to cough. Initially considered perhaps encephalopathy due to steroids, does reduce, however, also appears to have had aspiration event last night. This would be supported by his deterioration on pulmonary exam, increasing leukocytosis up to 15.2. Acute delirium/encephalopathy. He was made n.p.o. With continued antibiotics, with pulmonary toilet, plan for transfer for close monitoring to ICU. Discussed with his , given his severe deterioration in condition she had come to visits and spend time with him. Per additional discussion with her and her son, given overall poor prognosis as well as limited goals of care they decided not to proceed with transfer to ICU, to continue more conservative measures with continued antibiotic, pulmonary toilet on the medical floor, and reevaluate tomorrow with consideration to continue further medical treatment versus switching to comfort care. This evening he appears to have improved somewhat and upon waking up is asking for food. At this time continue n.p.o. until he can be seen by speech therapy again. Will need to discuss goals of care again as it is only a matter of time before his next aspiration event. Recurrent aspiration pneumonia. Currently pneumonia right lower lobe. Also COPD exacerbation. Productive cough which started sometime 05/12. Antibiotics as above. Taper off steroids. Follow sputum culture. MRSA PCR positive. Breathing treatments. Negative urine bacterial antigens. Dysphagia diet. Speech therapy evaluation. It seems that feeding tube was discussed with him during last admission here. Appears that he elected not to pursue this option, although it is not clear how much benefit it may actually provide long-term given his otherwise overall prognosis does not look good. Requested records from hospitalization from [facility]. Status: Acute (2) Septic shock: Blood pressures have been stable. Continue antibiotics, this time n.p.o. as above, speech therapy reassessment. Goals of care discussion. Continue monitoring on medical floor. TTE with normal ejection fraction, grade 1 diastolic dysfunction. No valve abnormalities. Subjectively he is doing okay. Septic shock I suspect as improved, but does have adrenal insufficiency, and will have to see what his LV function is like as well given recent non-STEMI. Blood cultures 05/13 with gram negative rods-per report possibly gram variable rods, perhaps a contaminant. Follow ID and sensitivity. Repeat UA ok. CTAP oral without acute abnormalities. At this time continue Zosyn. MRSA PCR is positive as well as will continue linezolid. Sputum cultures requested. Severe sepsis with lactic acidosis, acute renal failure. HAMLET improving. Acute encephalopathy due to acute infection with delirium. Abdomen is soft. Says appetite good. No abdominal pain or diarrhea. Intermittent episodes of vomiting in the morning for a long time especially after eating at night. Status: Acute (3) Adrenal insufficiency: Acute on chronic adrenal sufficiency appears to have improved. Blood pressures have been stable over this resolved hypotension. Decrease steroid dose and frequency. Status: Acute (4) Vomiting: Without recurrence. CTAP oral contrast unremarkable. Episode of vomiting this morning. Reports he has occasionally some vomiting in the morning, especially if he eats at night. And long-term prednisone, although they are not aware of history of diabetes. May benefit from assessment by gastric emptying study once he is more stable. A1c is good at 4.8. PPI given chronic steroid. Status: Acute (5) Acute kidney injury: Improving. Monitor. Suspected is prerenal due to hypotension, seems like his blood pressure was soft already yesterday, with some more productive cough. At this time hold Lasix for now without additional fluids. Status: Resolved (6) Sarcopenia: He is very thin, with muscle loss. Weight in ER is noted as 149 pounds, however, per discussion with son recently weight at the intermediate was closer to 103 pounds. Son reports continued weight loss over the last year. This appears to be despite being on prednisone. Requested for repeat weight measurement. Status: Acute (7) Declining functional status: Overall functional decline, with progressive weight loss, declining functional capacity, requiring assistance with transfers, has been progressively becoming mostly nonambulatory. Given overall trajectory, and also with her current suspect aspiration pneumonia prognosis overall is probably not good. At this time will treat acute illness as above. Once he is more stable assessment by PT, OT. Continue speech therapy follow-up which reportedly he has been getting over at SNF as well. Add protein shakes for sarcopenia. Mobilize as tolerating. Continue readdressing goals of care depending on his progress and recovery after the acute illness. Status: Acute Additional A&P Information Chronic steroid use: Very thin skin, prone to tears, wheezing and bleeding, as well as multiple IVs. PICC line had to be placed due to poor IV access. 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 Plans were for possibly follow-up with outpatient angiogram if he were agreeable. At this time continue cardiac medications. Other chronic medical problems. Attestations Medical Necessity Statement*: Continue admission for assessment of management of recurrent aspiration events, aspiration pneumonia, COPD as admission, acute encephalopathy. Coding Level of Care Code Acute Biology Manager for [facility] Fwd Exam Comprehensive Diagnoses Recurrent aspiration pneumonia J69.0 Septic shock A41.9; R65.21 Adrenal insufficiency E27.40 Vomiting R11.10 Acute kidney injury N17.9 Sarcopenia M62.84 Declining functional status R53.81
--- NOTE | 2020-05-17 10:01 | PC.OT ---
OT Note: Occupational therapist attempted this morning, however patient is unable to wake up.
[2020-05-17] MEDS: haloperidol inj 5 mg/mL INJ 1 mL 1 MG IM (11:32)
[2020-05-18] VITALS (14 sets, daily range): BP systolic 94–115; BP diastolic 52–73; PULSE 84–102; RESP 16–25; TEMP 36.4–37; O2SAT 93–100
[2020-05-18] MEDS: piperacillin-tazobactam 3.375 GM in sodium chloride 0.9% (plus) 50 ML IV ×3 (01:57→17:27)
[2020-05-18 05:26] LABS: Basophils % 0.1 %; Hematocrit 32.7 % (42.0-52.0); Hemoglobin 9.7 g/dL (11.7-16.6); Lymphocytes # 0.2 10^3/uL (0.8-4.8); Lymphocytes % 1.5 %; Mean Corpuscular HGB Conc 29.7 g/dL (30.0-36.0); Mean Corpuscular Hemoglobin 27.7 pg (28.0-34.0); Mean Corpuscular Volume 93.4 fL (80-94); Mean Platelet Volume 9.9 fL (7.4-10.4); Monocytes # 0.4 10^3/uL (0.2-0.9); Monocytes % 2.6 %; Neutrophils # 13.97 10^3/uL (1.8-7.7); Neutrophils % 94.8 %; Nucleated Red Blood Cells % 0 %; Platelet Count 250 10^3/cmm (130-400); Red Cell Distribution Width 15.2 % (12.1-15.1); White Blood Count 14.8 10^3/uL (4.0-10.0)
[2020-05-18 05:45] LABS: Alanine Aminotransferase 16 U/L (0-41); Albumin Level 3.3 g/dL (3.5-5.2); Alkaline Phosphatase 71 IU/L (40-130); Anion Gap 17.4 (5-19); Aspartate Amino Transferase 30 U/L (0-40); Blood Urea Nitrogen 16 mg/dL (8-23); Calcium 8.6 mg/dL (8.5-10.5); Carbon Dioxide 24 mmol/L (22-29); Chloride 106 mmol/L (98-107); Globulin 2.6 g/dL (1.3-4.6); Glucose 84 mg/dL (65-115); Osmolality Calculated 294 mOsm/kg (285-295); Potassium 3.4 mmol/L (3.5-5.1); Sodium 144 mmol/L (136-145); Total Protein 5.9 g/dL (6.6-8.7)
[2020-05-18] MEDS: morphine 4 mg/mL SDV 1 mL 2 MG IVP ×3 (06:21→20:08)
[2020-05-18] MEDS: linezolid premix 600 MG/300 ML PREMIX 300 MG IV ×2 (06:33→20:57)
[2020-05-18] MEDS: ipratropium-albuterol 3 mL Neb INHALATION ×2 (08:18→15:18)
[2020-05-18] MEDS: pantoprazole 40 mg SDV IVP (09:08)
--- NOTE | 2020-05-18 09:36 | PC.OT ---
OT note: Discussed with nursing that pt has been unable to take all medications this morning due to poor swallow. Pt had just been given pain medication sitting straight up in bed with chin tuck with nursing but had coughing and difficulty with this and at this time pt is very disgruntled. Will hold at this time.
--- NOTE | 2020-05-18 19:17 | PC.NURSE ---
Received in report that Pt was not to have any PO medications due to his inability to swallow without aspirating.
--- NOTE | 2020-05-18 20:05 | P.PN_ITS ---
Subjective Subjective: Interval history: He is feeling a little bit better. Asking about something to eat or drink. Discussed with him regarding aspiration event. He asked how long he was confused and was impressed it was that long. States understands for now is still noted high aspiration risk with small bedside trial earlier and his lungs are still sounding bad. Is agreeable to hold off on further trials until is a little stronger. Vitals/I&O/Wt Last Vital Signs Temp 98.2 F 05/18/20 16:00 Pulse 86 05/18/20 19:53 Resp 16 05/18/20 19:50 BP 114/65 05/18/20 16:00 Pulse Ox 96 05/18/20 19:50 05/18/20 05/18/20 05/18/20 06:59 14:59 22:59 Intake Total 50 / 750 50 / 50 Output Total 250 / 250 Balance 50 / 750 50 / 50 -250 / -200 Weight last 48 hrs Weight 48.489 kg Weight 48.733 kg Physical Exam Const: COMMON NORMALS: no acute distress, patient oriented x3 and alert GENERAL APPEARANCE: cooperative and frail appearing ORIENTATION/CONSCIOUSNESS: Yes confused OTHER: Awake, alert, generally weak. HENMT: COMMON NORMALS: oropharynx normal Neck/C-Spine: COMMON NORMALS: no JVD Resp: COMMON NORMALS: normal respiratory effort AUSCULTATION: rhonchi and wheezes Cardio: COMMON NORMALS: no JVD, regular rhythm, S1 normal heart sound present, S2 normal heart sound present and No murmurs present (Cardio) RHYTHM: regular rhythm HEART SOUNDS: S1 normal heart sound present and S2 normal heart sound present GI: COMMON NORMALS: Normal to inspection, nondistended, normoactive bowel sounds present, Soft to palpation and non-tender PALPATION: Yes Soft to palpation Extremity: COMMON NORMALS: no joint enlargement and no pedal edema Neuro: COMMON NORMALS: patient oriented x3 and moves all extremities SENSORIUM/ORIENTATION: Yes alert Skin: COMMON NORMALS: no rashes or lesions noted GENERAL SKIN EXAM: no rashes or lesions noted LESIONS: lesion noted (Skin breakdown on the bottom.) OTHER: Hyperpigmentation. Data : 05/18/20 04:10 05/18/20 04:10 Micro: Microbiology 05/16/20 17:15 Gram Stain - Final Sputum - Expectorated Sputum Sputum Culture - Preliminary Yeast species 05/13/20 11:05 Blood Culture - Final Blood NO GROWTH AFTER 5 DAYS 05/17/20 05:44 Blood Culture - Preliminary Blood NEGATIVE TO DATE 05/17/20 05:42 Blood Culture - Preliminary Blood NEGATIVE TO DATE 05/13/20 11:19 Blood Culture - Preliminary Blood Gram positive bacillus 1 A&P Assessment and plan (1) Recurrent aspiration pneumonia: His confusion has resolved, his calm, alert, lucid. Generally weak. Smal l bedside trial of swallowing today, again having some cough, and again concern for high risk of aspiration. Discussed with him and his spouse. For now we will keep n.p.o. as he is still having significant wheezing, rhonchi, and so I would be concerned to perform any further trials even with thickened liquids. Continue treatment of pneumonia. Will need additional assessment by ENT once they are back on Wednesday. Has had formal surgery with injection of the vocal cord in January. If tracheostomy is an option, this may be the way to go. Recurrent aspiration pneumonia. Currently pneumonia right lower lobe. Also COPD exacerbation. Productive cough which started sometime 05/12. Antibiotics as above. Taper off steroids as tolerating. Follow sputum culture. MRSA PCR positive. Breathing treatments. Few yeast in sputum may be contamination. Follow. Negative urine bacterial antigens. Dysphagia diet. Speech therapy evaluation. Status: Acute (2) Septic shock: Blood pressures have been stable. Continue antibiotics, this time n.p.o. as above, speech therapy reassessment. Goals of care discussion. Continue monitoring on medical floor. TTE with normal ejection fraction, grade 1 diastolic dysfunction. No valve abnormalities. Blood cultures 05/13 with gram negative rods-per report possibly gram variable rods, perhaps a contaminant. Follow ID and sensitivity. Repeat UA ok. CTAP oral without acute abnormalities. At this time continue Zosyn. MRSA PCR is positive as well as will continue linezolid. Severe sepsis with lactic acidosis, acute renal failure improved, then again additional aspiration event with worsened leukocytosis. HAMLET improving. Acute encephalopathy due to acute infection with delirium. Abdomen is soft. Says appetite good. No abdominal pain or diarrhea. Intermittent episodes of vomiting in the morning for a long time especially after eating at night. Status: Acute (3) Adrenal insufficiency: Acute on chronic adrenal sufficiency appears to have improved. Blood pressures have been stable over this resolved hypotension. Decrease steroid dose and frequency. Status: Acute (4) Vomiting: Without recurrence. CTAP oral contrast unremarkable. Episode of vomiting this morning. Reports he has occasionally some vomiting in the morning, especially if he eats at night. And long-term prednisone, although they are not aware of history of diabetes. May benefit from assessment by gastric emptying study once he is more stable. A1c is good at 4.8. PPI given chronic steroid. Status: Acute (5) Acute kidney injury: Improved. Monitor. Suspected is prerenal due to hypotension, seems like his blood pressure was soft already yesterday, with some more productive cough. At this time hold Lasix for now without additional fluids. Status: Resolved (6) Sarcopenia: He is very thin, with muscle loss. Weight in ER is noted as 149 pounds, however, per discussion with son recently weight at the halfway was closer to 103 pounds. Son reports continued weight loss over the last year. This appears to be despite being on prednisone. Requested for repeat weight measurement. Status: Acute (7) Declining functional status: Overall functional decline, with progressive weight loss, declining functional capacity, requiring assistance with transfers, has been progressively becoming mostly nonambulatory. Given overall trajectory, and also with her current suspect aspiration pneumonia prognosis overall is probably not good. At this time will treat acute illness as above. Once he is more stable assessment by PT, OT. Continue speech therapy follow-up which reportedly he has been getting over at SNF as well. Add protein shakes for sarcopenia. Mobilize as tolerating. Continue readdressing goals of care depending on his progress and recovery after the acute illness. Status: Acute Additional A&P Information Chronic steroid use: Very thin skin, prone to tears, wheezing and bleeding, as well as multiple IVs. PICC line had to be placed due to poor IV access. 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 Plans were for possibly follow-up with outpatient angiogram if he were agreeable. At this time continue cardiac medications. Other chronic medical problems. Attestations Medical Necessity Statement*: Continue admission for assessment management of recurrent aspiration pneumonia. Coding Level of Care Code Acute Nail Professional for [facility] Diagnoses Recurrent aspiration pneumonia J69.0 Septic shock A41.9; R65.21 Adrenal insufficiency E27.40 Vomiting R11.10 Acute kidney injury N17.9 Sarcopenia M62.84 Declining functional status R53.81
[2020-05-18] MEDS: ondansetron 2 mg/ML SDV 2 mL 4 MG IVP (20:08)
[2020-05-19] VITALS (15 sets, daily range): BP systolic 98–126; BP diastolic 49–77; PULSE 85–102; RESP 16–22; TEMP 36.3–37.2; O2SAT 91–100
[2020-05-19] MEDS: piperacillin-tazobactam 3.375 GM in sodium chloride 0.9% (plus) 50 ML IV ×3 (00:51→17:20)
[2020-05-19] MEDS: ondansetron 2 mg/ML SDV 2 mL 4 MG IVP (00:56)
[2020-05-19] MEDS: LORazepam 2 mg/mL INJ 1 mL IVP (00:56)
[2020-05-19] MEDS: morphine 4 mg/mL SDV 1 mL 2 MG IVP ×3 (00:56→19:42)
[2020-05-19] MEDS: ipratropium-albuterol 3 mL Neb INHALATION ×3 (01:57→14:11)
[2020-05-19] MEDS: HYDROmorphone 1 mg/mL INJ 1 mL 0.5 MG IVP (04:10)
[2020-05-19 05:25] LABS: Basophils % 0.1 %; Hematocrit 30.6 % (42.0-52.0); Hemoglobin 9.3 g/dL (11.7-16.6); Lymphocytes # 0.3 10^3/uL (0.8-4.8); Lymphocytes % 3.1 %; Mean Corpuscular HGB Conc 30.4 g/dL (30.0-36.0); Mean Corpuscular Hemoglobin 28.2 pg (28.0-34.0); Mean Corpuscular Volume 92.7 fL (80-94); Mean Platelet Volume 9.9 fL (7.4-10.4); Monocytes # 0.2 10^3/uL (0.2-0.9); Monocytes % 2.1 %; Nucleated Red Blood Cells % 0 %; Platelet Count 200 10^3/cmm (130-400); Red Cell Distribution Width 15.2 % (12.1-15.1); White Blood Count 10.8 10^3/uL (4.0-10.0)
[2020-05-19 05:47] LABS: Alanine Aminotransferase 15 U/L (0-41); Alkaline Phosphatase 67 IU/L (40-130); Anion Gap 13.3 (5-19); Aspartate Amino Transferase 28 U/L (0-40); Blood Urea Nitrogen 13 mg/dL (8-23); Calcium 8.6 mg/dL (8.5-10.5); Carbon Dioxide 26 mmol/L (22-29); Chloride 106 mmol/L (98-107); Globulin 2.3 g/dL (1.3-4.6); Glucose 88 mg/dL (65-115); Osmolality Calculated 290 mOsm/kg (285-295); Potassium 3.3 mmol/L (3.5-5.1); Sodium 142 mmol/L (136-145); Total Bilirubin 0.8 mg/dL (0.15-1.2); Total Protein 5.3 g/dL (6.6-8.7)
[2020-05-19] MEDS: linezolid premix 600 MG/300 ML PREMIX 300 MG IV ×2 (07:43→20:12)
[2020-05-19] MEDS: pantoprazole 40 mg SDV IVP (09:53)
--- NOTE | 2020-05-19 10:59 | PM.PN ---
Subjective Subjective: Interval history: Says that he could not sleep all night long, but is not sure why. He denies that it was his breathing bothering him. He does say that he has been trying to use flutter valve as often as he can. Use this several times in front of me. Otherwise denies chest pain or pressure. Vitals/I&O/Wt Last Vital Signs Temp 98.4 F 05/19/20 10:50 Pulse 96 05/19/20 10:50 Resp 18 05/19/20 10:50 BP 103/51 05/19/20 10:50 Pulse Ox 96 05/19/20 10:50 05/18/20 05/19/20 05/19/20 22:59 06:59 14:59 Intake Total 350 / 700 50 / 750 Output Total 250 / 250 325 / 575 150 / 150 Balance 100 / 450 -275 / 175 -150 / -150 Weight last 48 hrs Weight 47.174 kg Weight 48.489 kg Physical Exam Const: COMMON NORMALS: no acute distress, patient oriented x3 and alert GENERAL APPEARANCE: cooperative and frail appearing ORIENTATION/CONSCIOUSNESS: Yes confused OTHER: Awake, alert, generally weak. HENMT: COMMON NORMALS: oropharynx normal Neck/C-Spine: COMMON NORMALS: no JVD Resp: COMMON NORMALS: normal respiratory effort AUSCULTATION: rhonchi and wheezes Cardio: COMMON NORMALS: no JVD, regular rhythm, S1 normal heart sound present, S2 normal heart sound present and No murmurs present (Cardio) RHYTHM: regular rhythm HEART SOUNDS: S1 normal heart sound present and S2 normal heart sound present GI: COMMON NORMALS: Normal to inspection, nondistended, normoactive bowel sounds present, Soft to palpation and non-tender PALPATION: Yes Soft to palpation Extremity: COMMON NORMALS: no joint enlargement and no pedal edema Neuro: COMMON NORMALS: patient oriented x3 and moves all extremities SENSORIUM/ORIENTATION: Yes alert Skin: COMMON NORMALS: no rashes or lesions noted GENERAL SKIN EXAM: no rashes or lesions noted LESIONS: lesion noted (Skin breakdown on the bottom.) OTHER: Hyperpigmentation. Data : 05/19/20 04:35 05/19/20 04:35 Micro: Microbiology 05/16/20 17:15 Gram Stain - Final Sputum - Expectorated Sputum Sputum Culture - Preliminary Yeast species 05/13/20 11:05 Blood Culture - Final Blood NO GROWTH AFTER 5 DAYS 05/17/20 05:44 Blood Culture - Preliminary Blood NEGATIVE TO DATE 05/17/20 05:42 Blood Culture - Preliminary Blood NEGATIVE TO DATE A&P Assessment and plan (1) Recurrent aspiration pneumonia: Today he appears to be stable on 2 L nasal cannula. Still wheezing, rhonchi bilaterally. Yesterday minimal trial of swallowing was not reassuring, with cough with even small sips of water trying to take an oral medication. For now continue n.p.o. As discussed with him and his spouse. Would be concerned to perform any further trials even with thickened liquids currently. Continue treatment of pneumonia. Will need additional assessment by ENT once they are back on Wednesday. Has had formal surgery with injection of the vocal cord in January. If tracheostomy is an option, this may be the way to go. For now we will add gentle hydration with D5 LR with potassium. Recurrent aspiration pneumonia. Currently pneumonia right lower lobe. Also COPD exacerbation. Productive cough which started sometime 05/12. Antibiotics as above. Taper off steroids as tolerating. Follow sputum culture. MRSA PCR positive. Breathing treatments. Few yeast in sputum may be contamination. Follow. Negative urine bacterial antigens. Status: Acute (2) Septic shock: Blood pressures have been stable although somewhat on the soft side in the low 100s. We will try to cut down methylprednisone further. Sepsis with some improvement today, leukocytosis down to 10.8, still some sinus tachycardia in the 90s. Continue treatment for pneumonia as above. Continue monitoring on medical floor. TTE with normal ejection fraction, grade 1 diastolic dysfunction. No valve abnormalities. Blood cultures 05/13 with gram negative rods-per report possibly gram variable rods, perhaps a contaminant. Follow ID and sensitivity. Repeat UA ok. At this time continue Zosyn. MRSA PCR is positive as well as will continue linezolid. Severe sepsis with lactic acidosis, acute renal failure improved, then again additional aspiration event with worsened leukocytosis. HAMLET improving. Acute encephalopathy due to acute infection with delirium. Abdomen is soft. Says appetite good. No abdominal pain or diarrhea. Intermittent episodes of vomiting in the morning for a long time especially after eating at night. CTAP oral without acute abnormalities. Status: Acute (3) Adrenal insufficiency: Reduce Solu-Medrol dose to 20 mg twice daily. Acute on chronic adrenal sufficiency appears to have improved. Blood pressures have been stable over this resolved hypotension. Decrease steroid dose and frequency. Status: Acute (4) Vomiting: Without recurrence. CTAP oral contrast unremarkable. Episode of vomiting this morning. Reports he has occasionally some vomiting in the morning, especially if he eats at night. And long-term prednisone, although they are not aware of history of diabetes. May benefit from assessment by gastric emptying study once he is more stable. A1c is good at 4.8. PPI given chronic steroid. Status: Acute (5) Acute kidney injury: Improved. Monitor. Suspected is prerenal due to hypotension, seems like his blood pressure was soft already yesterday, with some more productive cough. At this time hold Lasix for now without additional fluids. Status: Resolved (6) Sarcopenia: He is very thin, with muscle loss. Weight in ER is noted as 149 pounds, however, per discussion with son recently weight at the halfway was closer to 103 pounds. This appears to be accurate weight. Son reports continued weight loss over the last year. Despite being on prednisone. Status: Acute (7) Declining functional status: Overall functional decline, with progressive weight loss, declining functional capacity, requiring assistance with transfers, has been progressively becoming mostly nonambulatory. Given overall trajectory, and also with her current suspect aspiration pneumonia prognosis overall is probably not good. At this time will treat acute illness as above. Once he is more stable assessment by PT, OT. Continue speech therapy follow-up which reportedly he has been getting over at SNF as well. Add protein shakes for sarcopenia. Mobilize as tolerating. Continue readdressing goals of care depending on his progress and recovery after the acute illness. Status: Acute Additional A&P Information Chronic steroid use: Very thin skin, prone to tears, wheezing and bleeding, as well as multiple IVs. PICC line had to be placed due to poor IV access. 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 Urbina Recent non-STEMI: Back during hospitalization in March, treated medically at that time as he had declined additional assessment and intervention by coronary angiography. Plans were for possibly follow-up with outpatient angiogram if he were agreeable. At this time continue cardiac medications. Other chronic medical problems. Attestations Medical Necessity Statement*: Continue admission for assessment management of recurrent aspiration pneumonia, sepsis in the setting of chronic adrenal insufficiency. Coding Level of Care Code Acute Vision Teacher for [facility] Diagnoses Recurrent aspiration pneumonia J69.0 Septic shock A41.9; R65.21 Adrenal insufficiency E27.40 Vomiting R11.10 Acute kidney injury N17.9 Sarcopenia M62.84 Declining functional status R53.81
--- NOTE | 2020-05-19 18:23 | PC.NURSE ---
Dr. Smith gave permission for the patient's to stay the night with him in the hospital.
--- NOTE | 2020-05-19 18:24 | PC.NURSE ---
End of report summary Patient's is at bedside. Patient is completely NPO. Patient will be evaluated for a Tracheotomy tomorrow. Patient is alert to self.
[2020-05-20] VITALS (14 sets, daily range): BP systolic 106–126; BP diastolic 65–82; PULSE 67–99; RESP 14–20; TEMP 36.4–37.2; O2SAT 90–100
[2020-05-20] MEDS: piperacillin-tazobactam 3.375 GM in sodium chloride 0.9% (plus) 50 ML IV ×3 (00:07→18:19)
[2020-05-20] MEDS: morphine 4 mg/mL SDV 1 mL 2 MG IVP ×4 (02:58→19:53)
[2020-05-20 05:54] LABS: Basophils % 0.1 %; Hematocrit 33.4 % (42.0-52.0); Lymphocytes # 0.3 10^3/uL (0.8-4.8); Lymphocytes % 2.6 %; Mean Corpuscular HGB Conc 29.9 g/dL (30.0-36.0); Mean Corpuscular Hemoglobin 27.5 pg (28.0-34.0); Mean Corpuscular Volume 91.8 fL (80-94); Monocytes # 0.2 10^3/uL (0.2-0.9); Monocytes % 1.2 %; Neutrophils # 11.75 10^3/uL (1.8-7.7); Neutrophils % 95.6 %; Nucleated Red Blood Cells % 0.2 %; Platelet Count 177 10^3/cmm (130-400); Red Blood Count 3.64 10^6/uL (4.1-5.3); White Blood Count 12.3 10^3/uL (4.0-10.0)
[2020-05-20 06:11] LABS: Alanine Aminotransferase 16 U/L (0-41); Albumin Level 3.2 g/dL (3.5-5.2); Alkaline Phosphatase 68 IU/L (40-130); Anion Gap 14.4 (5-19); Aspartate Amino Transferase 25 U/L (0-40); Blood Urea Nitrogen 12 mg/dL (8-23); Calcium 8.3 mg/dL (8.5-10.5); Carbon Dioxide 27 mmol/L (22-29); Chloride 102 mmol/L (98-107); Creatinine Clr Calc Pharmacy 49.9586; Globulin 2.2 g/dL (1.3-4.6); Glucose 88 mg/dL (65-115); Osmolality Calculated 286 mOsm/kg (285-295); Potassium 3.4 mmol/L (3.5-5.1); Sodium 140 mmol/L (136-145); Total Bilirubin 0.9 mg/dL (0.15-1.2); Total Protein 5.4 g/dL (6.6-8.7)
[2020-05-20] MEDS: ipratropium-albuterol 3 mL Neb INHALATION ×2 (09:00→14:35)
[2020-05-20] MEDS: linezolid premix 600 MG/300 ML PREMIX 300 MG IV ×2 (09:32→22:18)
[2020-05-20] MEDS: pantoprazole 40 mg SDV IVP (09:34)
--- NOTE | 2020-05-20 11:34 | DCPLANNER ---
Pg 2 of IM updated and reviewed with Pt's Spouse. No questions, copy provided.
--- NOTE | 2020-05-20 16:58 | PM.PN ---
Subjective Subjective: Interval history: No acute events overnight. Overnight patient states he was able to sleep well. Patient has remained hemodynamically stable and afebrile. Today morning when patient was seen patient was at bedside. Extensive goals of care discussion was done. Patient states no matter what he would like to go home. Options given to the patient was 1. PEG tube placement,nil by mouth, going home with home health versus in-home services. Financial aspects were discussed in details. Patient was also referred to care coordination regarding the same. Versus PEG tube placement and discharge back to [facility]. Versus discharge home with hospice. Both patient and patient's will discuss and let me know regarding the further goals of care. Vitals/I&O/Wt Last Vital Signs Temp 98.5 F 05/20/20 15:30 Pulse 96 05/20/20 15:30 Resp 14 05/20/20 15:30 BP 106/68 05/20/20 15:30 Pulse Ox 99 05/20/20 15:30 05/20/20 05/20/20 05/20/20 06:59 14:59 22:59 Intake Total 50 / 750 300 / 300 50 / 350 Balance 50 / 300 300 / 300 50 / 350 Weight last 48 hrs Weight 46.357 kg Weight 47.174 kg Physical Exam Narrative: EXAM NARRATIVE: General: No acute distress, AO x3, cachectic HEENT: PERRLA, pupils bilaterally equal and reactive Chest: Bronchial breath sounds bilaterally, no added sounds, equal good air entry bilaterally CVS: S1-S2 regular, no murmurs, no tachycardia, no gallops, no rubs Abdomen: Soft, nontender, no organomegaly, bowel sounds present Neuro: No focal deficits, no facial deformity, AO x3, power 5/5 in all limbs Data : 05/20/20 05:22 05/20/20 05:22 Micro: Microbiology 05/16/20 17:15 Gram Stain - Final Sputum - Expectorated Sputum Sputum Culture - Final Dariana tropicalis A&P Assessment and plan (1) Recurrent aspiration pneumonia: Continue with Zosyn, linezolid. Day 8 today. Most likely will continue to day 10. Follow sputum culture. For now growing Dariana species. MRSA positive. DuoNebs every 6 hours. Oxygen supplementation keeping saturation over 90%. Recurrent aspiration pneumonia. COPD exacerbation. Minimal trial of swallowing was not reassuring, with cough with even small sips of water trying to take an oral medication. Will check barium modified swallow. For now continue n.p.o. As discussed with him and his spouse. Would be concerned to perform any further trials even with thickened liquids currently. For now we will add gentle hydration with D5 LR with potassium. Status: Acute (2) Septic shock: Resolved. Has remained hemodynamically stable. Keep mean arterial pressure over 65 mmHg. Continue monitoring on medical floor. TTE with normal ejection fraction, grade 1 diastolic dysfunction. No valve abnormalities. HAMLET resolved. Acute metabolic encephalopathy resolved. Abdomen is soft. Says appetite good. No abdominal pain or diarrhea. Intermittent episodes of vomiting in the morning for a long time especially after eating at night. CTAP oral without acute abnormalities. Status: Acute (3) Adrenal insufficiency: Takes prednisone 10 mg oral daily which is equal into Solu-Medrol 80 mg IV. Reduce Solu-Medrol dose to 20 mg twice daily. Acute on chronic adrenal sufficiency appears to have improved. Blood pressures have been stable over this resolved hypotension. Decrease steroid dose and frequency. Status: Acute (4) Vomiting: Without recurrence. CTAP oral contrast unremarkable. PPI given chronic steroid. Status: Acute (5) Acute kidney injury: . Most likely prerenal due to hypotension on admission. Continue to monitor BMP and electrolytes daily. Medication reconstruction done for nephrotoxic drugs. Status: Resolved (6) Sarcopenia: He is very thin, with muscle loss. Weight in ER is noted as 149 pounds, however, per discussion with son recently weight at the residential was closer to 103 pounds. This appears to be accurate weight. Frequent repositioning in bed. Surgical bed. Status: Acute (7) Declining functional status: Overall functional decline, with progressive weight loss, declining functional capacity, requiring assistance with transfers, has been progressively becoming mostly nonambulatory. Given overall trajectory, and also with her current suspect aspiration pneumonia prognosis overall is probably not good. At this time will treat acute illness as above. Once he is more stable assessment by PT, OT. Continue speech therapy follow-up which reportedly he has been getting over at SNF as well. 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 Urbina Recent non-STEMI: Back during hospitalization in March, treated medically at that time as he had declined additional assessment and intervention by coronary angiography. Plans were for possibly follow-up with outpatient angiogram if he were agreeable. At this time continue cardiac medications. Other chronic medical problems. Limited resuscitation. Protonix for PUD prophylaxis. Heparin 5000 every 12 for DVT prophylaxis. Goals of care discussion was done with both patient and at bedside. Options given to the patient was 1. PEG tube placement,nil by mouth, going home with home health versus in-home services. Financial aspects were discussed in details. Patient was also referred to care coordination regarding the same. Versus PEG tube placement and discharge back to [facility]. Versus discharge home with hospice. Both patient and patient's will discuss and let me know regarding the further goals of care. Attestations Medical Necessity Statement*: Recurrent aspiration pneumonia, Time Spent in Patient Care: Greater than 35 minutes (>than 50% of time spent in counselling and/or direct pt care on unit). Coding Level of Care Code Acute Supervisor [facility] for [facility] Fwd Diagnoses Recurrent aspiration pneumonia J69.0 Septic shock A41.9; R65.21 Adrenal insufficiency E27.40 Vomiting R11.10 Acute kidney injury N17.9 Sarcopenia M62.84 Declining functional status R53.81
[2020-05-20] MEDS: heparin 5,000 unit/mL INJ 1 mL 5000 UNIT SUBCUT (18:19)
[2020-05-20] MEDS: atorvastatin 40 mg Tablet 20 MG PO (22:17)
[2020-05-20] MEDS: sennosides-docusate Tablet 2 TAB PO (22:17)
[2020-05-21] VITALS (13 sets, daily range): BP systolic 88–123; BP diastolic 56–78; PULSE 70–100; RESP 14–20; TEMP 36.5–37.3; O2SAT 95–99
[2020-05-21] MEDS: piperacillin-tazobactam 3.375 GM in sodium chloride 0.9% (plus) 50 ML IV ×3 (02:45→18:24)
[2020-05-21] MEDS: heparin 5,000 unit/mL INJ 1 mL 5000 UNIT SUBCUT (05:57)
[2020-05-21 06:23] LABS: Basophils % 0.1 %; Eosinophils # 0.1 10^3/uL (0.0-0.8); Eosinophils % 0.9 %; Hematocrit 34.3 % (42.0-52.0); Hemoglobin 10.4 g/dL (11.7-16.6); Lymphocytes # 1.1 10^3/uL (0.8-4.8); Mean Corpuscular HGB Conc 30.3 g/dL (30.0-36.0); Mean Corpuscular Hemoglobin 27.7 pg (28.0-34.0); Mean Corpuscular Volume 91.2 fL (80-94); Mean Platelet Volume 10.3 fL (7.4-10.4); Monocytes # 0.3 10^3/uL (0.2-0.9); Neutrophils # 12.01 10^3/uL (1.8-7.7); Neutrophils % 88.6 %; Nucleated Red Blood Cells % 0.1 %; Platelet Count 142 10^3/cmm (130-400); Red Blood Count 3.76 10^6/uL (4.1-5.3); Red Cell Distribution Width 14.9 % (12.1-15.1); White Blood Count 13.6 10^3/uL (4.0-10.0)
[2020-05-21 06:38] LABS: Alanine Aminotransferase 15 U/L (0-41); Alkaline Phosphatase 68 IU/L (40-130); Aspartate Amino Transferase 22 U/L (0-40); Blood Urea Nitrogen 10 mg/dL (8-23); Calcium 8.4 mg/dL (8.5-10.5); Carbon Dioxide 29 mmol/L (22-29); Chloride 100 mmol/L (98-107); Creatinine Clr Calc Pharmacy 50.6184; Globulin 2.3 g/dL (1.3-4.6); Glucose 75 mg/dL (65-115); Osmolality Calculated 281 mOsm/kg (285-295); Sodium 138 mmol/L (136-145); Total Protein 5.3 g/dL (6.6-8.7)
--- NOTE | 2020-05-21 08:00 | FL_ITS ---
WS: [id number] EXAM: MODIFIED BARIUM SWALLOW DATE OF EXAMINATION: 05/21/2020, 1050 hours COMPARISON: None. HISTORY: Patient is 79 years old with difficulty swallowing. Aspiration pneumonia. FINDINGS: With the patient in the lateral position different consistencies of barium were ingested. Initial the patient ingested barium paste. There is extensive oral dysphagia demonstrated. When the patient angela reyna swallowed the barium paste there is extensive retention in the hypopharynx and vallecular space. This did not clear after multiple attempts. With further ingestion of nectar as well as pear slices m ixed with barium there is spillage over the vallecula. There is penetration to the level of the cords . With ingestion of thin liquids there is immediate prominent aspiration with a delayed cough reflex. FL/FL barium swallow modifd [id number] IMPRESSION: Extensive oral pharyngeal dysphagia. Delayed cough with thin liquid aspiration. Penetration or other consistencies to the level of the cords. Extensive retent ion of thick material in the vallecular space and hypopharynx.
[2020-05-21] MEDS: pantoprazole 40 mg SDV IVP (08:48)
--- NOTE | 2020-05-21 08:48 | P.PN_ITS ---
Subjective Subjective: Interval history: No acute events overnight. Overnight patient states he was able to sleep well. Appears mildly dehydrated today morning. Blood pressure in the morning and 90 systolic.patient is asymptomatic. Patient was given a bolus of 500 cc as blood pressure improved to more than 110 systolic. Today patient's is at bedside with patient and states they have decided that patient will be going to [facility] on discharge. will accompany him to [facility]. They have agreed for PEG tube for now. Vitals/I&O/Wt Last Vital Signs Temp 98.8 F 05/21/20 08:00 Pulse 94 05/21/20 08:00 Resp 16 05/21/20 08:00 BP 106/67 05/21/20 08:00 Pulse Ox 96 05/21/20 08:00 05/20/20 05/21/20 05/21/20 22:59 06:59 14:59 Intake Total 894.5 / 1194.5 Output Total 300 / 300 300 / 600 Balance 594.5 / 894.5 -300 / 594.5 Weight last 48 hrs Weight 47.797 kg Weight 46.357 kg Physical Exam Narrative: EXAM NARRATIVE: General: No acute distress, AO x3, cachectic, dehydrated HEENT: PERRLA, pupils bilaterally equal and reactive Chest: Bronchial breath sounds bilaterally, no added sounds, equal good air entry bilaterally CVS: S1-S2 regular, no murmurs, no tachycardia, no gallops, no rubs Abdomen: Soft, nontender, no organomegaly, bowel sounds present Neuro: No focal deficits, no facial deformity, AO x3, power 5/5 in all limbs Data : 05/21/20 05:53 05/21/20 05:53 Micro: Microbiology 05/16/20 17:15 Gram Stain - Final Sputum - Expectorated Sputum Sputum Culture - Final Dariana tropicalis A&P Assessment and plan (1) Recurrent aspiration pneumonia: Continue with Zosyn, linezolid. Day 05/16. Follow sputum culture. For now growing Dariana species. MRSA positive. DuoNebs every 6 hours. Oxygen supplementation keeping saturation over 90%. Recurrent aspiration pneumonia. COPD exacerbation. Minimal trial of swallowing was not reassuring, with cough with even small sips of water trying to take an oral medication. Barium swallow done today morning consistent with severe aspiration. For now continue n.p.o. Patient has agreed for PEG tube placement. Surgery has been consulted. Increase fluids to 75 cc/h after 500 cc bolus. Status: Acute (2) Septic shock: Resolved. Has remained hemodynamically stable. Keep mean arterial pressure over 65 mmHg. Continue monitoring on medical floor. TTE with normal ejection fraction, grade 1 diastolic dysfunction. No valve abnormalities. HAMLET resolved. Acute metabolic encephalopathy resolved. Abdomen is soft. Says appetite good. No abdominal pain or diarrhea. Intermittent episodes of vomiting in the morning for a long time especially after eating at night. CTAP oral without acute abnormalities. Status: Acute (3) Adrenal insufficiency: Takes prednisone 10 mg oral daily which is equal into Solu-Medrol 80 mg IV. Reduce Solu-Medrol dose to 20 mg twice daily. Acute on chronic adrenal sufficiency appears to have improved. Blood pressures have been stable over this resolved hypotension. Decrease steroid dose and frequency. Status: Acute (4) Vomiting: Without recurrence. CTAP oral contrast unremarkable. PPI given chronic steroid. Status: Acute (5) Acute kidney injury: . Most likely prerenal due to hypotension on admission. Continue to monitor BMP and electrolytes daily. Medication reconstruction done for nephrotoxic drugs. Status: Resolved (6) Sarcopenia: He is very thin, with muscle loss. Weight in ER is noted as 149 pounds, however, per discussion with son recently weight at the retirement was closer to 103 pounds. This appears to be accurate weight. Frequent repositioning in bed. Surgical bed. Status: Acute (7) Declining functional status: Overall functional decline, with progressive weight loss, declining functi onal capacity, requiring assistance with transfers, has been progressively becoming mostly nonambulatory. Given overall trajectory, and also with her current suspect aspiration pneumonia prognosis overall is probably not good. At this time will treat acute illness as above. Once he is more stable assessment by PT, OT. Continue speech therapy follow-up which reportedly he has been getting over at SNF as well. 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 Urbian Recent non-STEMI: Back during hospitalization in March, treated medically at that time as he had declined additional assessment and intervention by coronary angiography. Plans were for possibly follow-up with outpatient angiogram if he were agreeable. At this time continue cardiac medications. Other chronic medical problems. Limited resuscitation. Protonix for PUD prophylaxis. Heparin 5000 every 12 for DVT prophylaxis. Goals of care discussion was done with both patient and at bedside. Options given to the patient was 1. PEG tube placement,nil by mouth, going home with home health versus in-home services. Financial aspects were discussed in details. Patient was also referred to care coordination regarding the same. Versus PEG tube placement and discharge back to [facility]. Versus discharge home with hospice. Patient also bedside today states that they made a decision of going together to [facility] post discharge already has agreed for PEG tube placement going forward. Plan for PEG tube placement tomorrow with Dr. Ferro from surgery. Attestations Medical Necessity Statement*: Recurrent aspiration pneumonia, severe protein energy malnutrition Time Spent in Patient Care: Greater than 35 minutes (>than 50% of time spent in counselling and/or direct pt care on unit) . Coding Level of Care Code Acute Technical Data Analyst for [facility] Fwd Diagnoses Recurrent aspiration pneumonia J69.0 Septic shock A41.9; R65.21 Adrenal insufficiency E27.40 Vomiting R11.10 Acute kidney injury N17.9 Sarcopenia M62.84 Declining functional status R53.81
[2020-05-21] MEDS: ipratropium-albuterol 3 mL Neb INHALATION ×3 (09:19→20:40)
--- NOTE | 2020-05-21 11:53 | PC.NURSE ---
I reported the low bp to the nurse 88/56
[2020-05-21] MEDS: linezolid premix 600 MG/300 ML PREMIX 300 MG IV (12:16)
[2020-05-21] MEDS: sodium chloride 0.9% 500 ML IV (13:28)
--- NOTE | 2020-05-21 15:31 | PM.CONSULT ---
Providers/Reason For Consult Consulting Physican/Specialty*: Calvin Ferro MD Reason for Consult*: Difficulty in swallowing Attending Physician: Arie Gonzalez MD Primary Care Provider: Meng Wu MD History of Present Illness History of Present Illness Chief Complaint: Problem with swallowing History of present illness: Mr Lg Lund is a 79 year old male apparently he has been having difficulty in swallowing particularly over the past 2 months per his spouse's description.Before that patient was doing well yet before many years he did have a PEG tube that was placed in [facility] but it was taken out as he was performing well. Patient is admitted to the hospitalist service and undergone a modified barium swallow that showed; FINDINGS: With the patient in the lateral position different consistencies of barium were ingested. Initial the patient ingested barium paste. There is extensive oral dysphagia demonstrated. When the patient finally swallowed the barium paste there is extensive retention in the hypopharynx and vallecular space. This did not clear after multiple attempts. With further ingestion of nectar as well as pear slices mixed with barium there is spillage over the vallecula. There is penetration to the level of the cords. With ingestion of thin liquids there is immediate prominent aspiration with a delayed cough reflex. FL/FL barium swallow modifd 18388 IMPRESSION: Extensive oral pharyngeal dysphagia. Delayed cough with thin liquid aspiration. Penetration or other consistencies to the level of the cords. Extensive retention of thick material in the vallecular space and hypopharynx. General surgery was consulted for potential intervention in the form of PEG tube placement as the patient is at high risk of aspiration. Review of Systems General: Reports: 10 or more systems reviewed and unremarkable except in HPI and below Meds/Allergies Home Medications and Allergies Home Medications Medication Instructions Recorded Confirmed Last Taken Type polyethylene glycol 3350 17 17 gm PO DAILY 09/18/19 05/13/20 03/31/20 History gram/dose oral powder gabapentin 300 mg capsule 300 mg PO BID 30 Days #60 cap 03/29/20 05/13/20 04/01/20 Rx prednisone 10 mg tablet 10 mg PO DAILY tab 03/29/20 05/13/20 04/01/20 History alum-mag hydroxide-simeth [Mintox] 30 ml PO Q4H PRN 05/13/20 05/13/20 Unknown History atorvastatin 10 mg PO BEDTIME 05/13/20 05/13/20 Unknown History ethambutol 800 mg PO QAM 05/13/20 05/13/20 Unknown History furosemide 20 mg PO DAILY 05/13/20 05/13/20 Unknown History hydromorphone 4 mg PO BID 05/13/20 05/13/20 05/13/20 08:00 History hydromorphone 4 mg PO BID PRN 05/13/20 05/13/20 Unknown History magnesium hydroxide [Milk of 15 ml PO Q4H PRN 05/13/20 05/13/20 Unknown History Magnesia] sennosides-docusate sodium 2 tab PO BEDTIME 05/13/20 05/13/20 Unknown History [Senna-S] Allergies Allergy/AdvReac Type Severity Reaction Status Date / Time adhesive tape Allergy RASH Verified 05/22/20 06:03 Iodinated Contrast Media AdvReac ADR-Chest Verified 05/22/20 06:03 Pain Current Medications Current Medications Generic Name Dose Route Start Last Admin Trade Name Freq PRN Reason Stop Dose Admin Albuterol/Ipratropium 3 ml 05/13/20 21:00 05/21/20 14:52 Duoneb INHALATION 3 ml Q6H.RESPIRATORY BYRON Administration Atorvastatin Calcium 20 mg 05/13/20 21:00 05/20/20 22:17 Lipitor PO 20 mg BEDTIME BYRON Administration Ethambutol HCl 800 mg 05/14/20 06:00 05/21/20 08:48 Myambutol PO Not Given QAM BYRON Gabapentin 300 mg 05/13/20 18:00 05/21/20 08:48 Neurontin PO Not Given BID BYRON Haloperidol Lactate 1 mg 05/17/20 03:59 05/17/20 11:32 Haldol Inj IM 1 mg Q4H PRN Administration AGITATION Heparin Sodium (Beef Lung) 5,000 unit 05/20/20 17:15 05/21/20 05:57 Heparin SUBCUT 5,000 unit Q12H BYORN Administration Hydromorphone HCl 2 mg 05/13/20 17:26 05/18/20 09:09 Dilaudid Tab PO 2 mg BID PRN Administration Pain Linezolid 600 mg in 300 mls @ 300 mls/hr 05/13/20 18:00 05/21/20 13:31 Zyvox Premix IV Infused Q12H BYRON Infusion Protocol Piperacillin Sod/Tazobactam 50 mls @ 12.5 mls/hr 05/15/20 16:00 05/21/20 13:31 Sod 3.375 gm/ Sodium Chloride IV Infused Q8H BYRON Infusion Protocol Potassium Chloride 20 meq/ 1,000 mls @ 75 mls/hr 05/19/20 11:30 05/21/20 12:16 Dextrose/Lactated Ringer's IV 30 mls/hr .[id number] BYRON Administration Methylprednisolone Sodium Succinate 20 mg 05/21/20 09:00 05/21/20 08:48 Solu-Medrol IVP 20 mg DAILY BYRON Administration Morphine Sulfate 2 mg 05/17/20 03:59 05/20/20 19:53 Morphine IVP 2 mg Q4H PRN Administration Severe Pain or air hunger Ondansetron HCl 4 mg 05/13/20 17:26 05/19/20 00:56 Zofran IVP 4 mg Q6H PRN Administration NAUSEA AND VOMITING Pantoprazole Sodium 40 mg 05/13/20 18:00 05/21/20 08:48 Protonix IVP 40 mg DAILY BYRON Administration Polyethylene Glycol 17 gm 05/14/20 09:00 05/21/20 08:49 Miralax PO Not Given DAILY BYRON Senna/Docusate Sodium 2 tab 05/13/20 21:00 05/20/20 22:17 Senna-S PO 2 tab BEDTIME BYRON Administration PFSH Acute PFSH: Medical History Chronic adrenal insufficiency Degenerative lumbar spinal stenosis Elevated blood pressure reading High risk medication use 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 (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) use of systemic steroids Medication monitoring encounter Nontuberculous atypical mycobacterial disease Osteoporosis Pseudoaneurysm of carotid artery Rheumatoid arthritis with rheumatoid factor of multiple sites without organ or systems involvement Seropositive rheumatoid arthritis of multiple joints Surgical History History of back surgery History of knee replacement left on 10/12/16 and right on 12-05-16 Hx of cataract surgery bilateral Hx of cholecystectomy Status post carotid surgery Family History Other Hypertension Denies family history of Rheumatoid arthritis Diabetes CAD (coronary artery disease) Systemic lupus erythematosus (SLE) in adult Cancer Social History Smoking and tobacco status: former smoker Alcohol intake: former Housing: Long Term Marital status: Current occupational status: retired History of recent travel: No Vitals/I&O/Wt Last Vital Signs Temp 97.9 F 05/21/20 11:53 Pulse 95 05/21/20 14:56 Resp 20 H 05/21/20 14:50 BP 88/56 05/21/20 11:53 Pulse Ox 95 05/21/20 14:50 05/21/20 05/21/20 05/21/20 06:59 14:59 22:59 Intake Total 50 / 1244.5 1188 / 1188 Output Total 300 / 600 Balance -250 / 644.5 1188 / 1188 Weight last 48 hrs Weight 105 lb 6 oz Weight 102 lb 3.2 oz Physical Exam Narrative: EXAM NARRATIVE: Patient is conscious alert oriented X3 BMI 17 Head and neck examination PERRLA no masses no cervical lymphadenopathy no jaundice Cardiac examination audible S1-S2 no murmurs no gallops no arrhythmias Chest is clear bilateral,abscence of Rhonchi or wheezes,no surgical emphysema Abdomen nontender nondistended soft no organomegaly guarding or rigidity/no signs of peritonitis Ecchymotic patches appreciated on the anterior abdominal wall(she reports that he had that at the [facility]) Data Micro: Micro: Microbiology 05/16/20 17:15 Gram Stain - Final Sputum - Expector ated Sputum Sputum Culture - F inal Dariana tropica lis A&P Assessment and plan (1) Difficulty in swallowing: Plan of care; After thorough history and physical examination and reviewing the chart, plan to perform a diagnostic esophagogastroduodenoscopy with possible biopsy and PEG tube placement. I discussed with the patient and his spouse in details the risk,benefits,alternatives and indications.The risk of aspiration, bleeding, soft tissue injury, perforation of the stomach/esophagus and other potential concomitant complications were explained to the patient in details.The patient understood this well and did agree to proceed. Rationale was carefully and clearly discussed with the patient.Appropriate informed consent have been reviewed and signed All questions have been answered and all concerns have been addressed to patient's satisfaction. Status: Acute Consult Attestations Medical Necessity Statement: Patient required inpatient past 2 midnights on the hospitalist service for medical comorbidities and difficulty in swallowing Time Spent in Patient Care: (>than 50% of time spent in counselling and/or direct pt care on unit). Coding Level of Care Code Acute Surface Boss for [facility] Fwd Diagnoses Difficulty in swallowing R13.10
[2020-05-21] MEDS: morphine 4 mg/mL SDV 1 mL 2 MG IVP ×2 (16:02→20:41)
--- NOTE | 2020-05-21 16:35 | PC.OT ---
OT tx attempted. Pt lying in bed. He declines participation in therapy stating my back and side (L) hurts . Nursing reports pt had just received pain medication. Tx to be attempted again tomorrow.
[2020-05-21 18:34] LABS: INR 0.91 (0.8-1.2)
[2020-05-21] MEDS: sennosides-docusate Tablet 2 TAB PO (20:42)
[2020-05-21] MEDS: atorvastatin 40 mg Tablet 20 MG PO (20:42)
[2020-05-22] VITALS (18 sets, daily range): BP systolic 102–149; BP diastolic 66–86; PULSE 88–103; RESP 16–20; TEMP 35.9–36.9; O2SAT 90–100
[2020-05-22 02:25] LABS: Basophils % 0.1 %; Eosinophils # 0.1 10^3/uL (0.0-0.8); Eosinophils % 0.9 %; Hematocrit 30.9 % (42.0-52.0); Hemoglobin 9.4 g/dL (11.7-16.6); Lymphocytes % 9.1 %; Mean Corpuscular HGB Conc 30.4 g/dL (30.0-36.0); Mean Corpuscular Hemoglobin 27.8 pg (28.0-34.0); Mean Corpuscular Volume 91.4 fL (80-94); Mean Platelet Volume 10.5 fL (7.4-10.4); Monocytes # 0.3 10^3/uL (0.2-0.9); Monocytes % 2.4 %; Neutrophils % 86.9 %; Nucleated Red Blood Cells % 0 %; Platelet Count 135 10^3/cmm (130-400); Red Blood Count 3.38 10^6/uL (4.1-5.3); Red Cell Distribution Width 14.9 % (12.1-15.1); White Blood Count 10.8 10^3/uL (4.0-10.0)
[2020-05-22 02:44] LABS: Alanine Aminotransferase 14 U/L (0-41); Albumin Level 2.7 g/dL (3.5-5.2); Alkaline Phosphatase 71 IU/L (40-130); Anion Gap 13.2 (5-19); Aspartate Amino Transferase 20 U/L (0-40); Blood Urea Nitrogen 7 mg/dL (8-23); Calcium 8.5 mg/dL (8.5-10.5); Carbon Dioxide 28 mmol/L (22-29); Chloride 101 mmol/L (98-107); Creatinine Clr Calc Pharmacy 50.6184; Globulin 2.3 g/dL (1.3-4.6); Glucose 90 mg/dL (65-115); Osmolality Calculated 283 mOsm/kg (285-295); Potassium 3.2 mmol/L (3.5-5.1); Sodium 139 mmol/L (136-145); Total Bilirubin 0.8 mg/dL (0.15-1.2)
[2020-05-22] MEDS: piperacillin-tazobactam 3.375 GM in sodium chloride 0.9% (plus) 50 ML IV ×3 (02:50→17:09)
[2020-05-22] MEDS: ondansetron 2 mg/ML SDV 2 mL 4 MG IVP (02:55)
[2020-05-22] MEDS: dextrose 5%-sod chloride 0.9% 1,000 ML 50 ML IV (04:56)
[2020-05-22] MEDS: pantoprazole 40 mg SDV IVP (08:55)
--- NOTE | 2020-05-22 09:37 | PC.SOCIAL ---
IMM Updated Updated pt's on Pg 2 IMM. Provided pt a copy. No questions voiced. Signed, dated, & timed copy in chart.
--- NOTE | 2020-05-22 11:17 | PC.NURSE ---
Pt to OPS with OPS nurses, Antonio.
--- NOTE | 2020-05-22 11:33 | PC.NURSE ---
\Pt brought down to ops from 2nd floor. Just noting that pt has bruising/ecchymosis on his abd, and rt rib area, that was there prior to PEG tube placement. Was in report that he got it at the shelter.
[2020-05-22] MEDS: sodium chloride 0.9% 1,000 ML 30 ML IV (11:40)
--- NOTE | 2020-05-22 11:48 | P.ANESASSM_ITS ---
Pre-Anesthetic Assessment Pre-Anesthetic Assessment: Height/Weight: Height 1.68 m Weight 48.716 kg Temp Pulse Resp BP Pulse Ox 98.4 F 93 20 H 112/74 97 05/22/20 11:31 05/22/20 11:31 05/22/20 11:31 05/22/20 11:31 05/22/20 11:31 Preop Diagnosis: Dysphagia Proposed Procedure: Operation Date: 05/22/20 12:25 Proposed Procedures p PEG Tube Insertion(Left) - Calvin Ferro MD Familial anesthetic complications: None Was Beta Jaquelin taken within 24 hours: N/A Last intake: NPO > 8 hrs Social: Social History: No alcohol and No tobacco Comment: former smoker Exam: Pre-Anes Outpt Exam: alert, oriented x 3 and regular rate & rhythm Additional Exam Findings (including area of procedure): Coarse billateral breath sounds (R> L) Airway: Cervical ROM: WNL MP: 3 Dentition: Other (edentulous) Pulmonary: Pulmonary: COPD Comments: recurrent aspiration pneumonia CV/HEM: CV/HEM: Anemia and HTN Comments: nstemi in march : Comments: HAMLET Metabolic: Comments: adrenal insufficiency Musc/skel: Comments: rheumatoid arthritis Neuropsych: Comments: carotid pseduoanerysm Anesthetic Plan: ASA status: 4 Anesthesia: MAC Risk of > 500 ml blood loss (7ml/kg in children): No Meds/Allergies Current Medications: Current Medications Generic Name Dose Route Start Last Admin Trade Name Freq PRN Reason Stop Dose Admin Albuterol/Ipratrop ium 3 ml 05/13/20 21:00 05/22/20 08:16 Duoneb INHALATION Not Given Q6H.RESPIRATORY S CH Atorvastatin Calci um 20 mg 05/13/20 21:00 05/21/20 20:42 Lipitor PO 20 mg BEDTIME BYRON Administration Ethambutol HCl 800 mg 05/14/20 06:00 05/22/20 05:46 Myambutol PO Not Given QAM BYRON Gabapentin 300 mg 05/13/20 18:00 05/22/20 08:54 Neurontin PO Not Given BID BYRON Haloperidol Lactat e 1 mg 05/17/20 03:59 05/17/20 11:32 Haldol Inj IM 1 mg Q4H PRN Administration AGITATION Heparin Sodium (Be ef Lung) 5,000 unit 05/20/20 17:15 05/21/20 05:57 Heparin SUBCUT 5,000 unit Q12H BYRON Administration Hydromorphone HCl 2 mg 05/13/20 17:26 05/18/20 09:09 Dilaudid Tab PO 2 mg BID PRN Administration Pain Linezolid 600 mg in 300 mls @ 300 mls/hr 05/13/20 18:00 05/22/20 09:03 Zyvox Premix IV Infused Q12H BYRON Infusion Protocol Piperacillin Sod/T azobactam 50 mls @ 12.5 mls /hr 05/15/20 16:00 05/22/20 09:00 Sod 3.375 gm/ So dium Chloride IV 12.5 mls/hr Q8H BYRON Administration Protocol Dextrose/Sodium Ch loride 1,000 mls @ 50 ml s/hr 05/21/20 16:45 05/22/20 04:56 Dextrose 5%-Sod Chloride 0.9% IV 50 mls/hr .Q20H BYRON Administration Sodium Chloride 1,000 mls @ 30 ml s/hr 05/22/20 11:30 05/22/20 11:40 Sodium Chloride 0.9% IV 05/23/20 11:29 30 mls/hr .Q24H BYRON Administration Methylprednisolone Sodium Succinate 20 mg 05/21/20 09:00 05/22/20 08:54 Solu-Medrol IVP 20 mg DAILY BYRON Administration Morphine Sulfate 2 mg 05/17/20 03:59 05/21/20 20:41 Morphine IVP 2 mg Q4H PRN Administration Severe Pain or ai r hunger Ondansetron HCl 4 mg 05/13/20 17:26 05/22/20 02:55 Zofran IVP 4 mg Q6H PRN Administration NAUSEA AND VOMITI NG Pantoprazole Sodiu m 40 mg 05/13/20 18:00 05/22/20 08:55 Protonix IVP 40 mg DAILY BYRON Administration Polyethylene Glyco l 17 gm 05/14/20 09:00 05/22/20 08:55 Miralax PO Not Given DAILY BYRON Senna/Docusate Sod ium 2 tab 05/13/20 21:00 05/21/20 20:42 Senna-S PO 2 tab BEDTIME BYRON Administration PFSH Anesthesia PFSH: Medical History Chronic adrenal insufficiency Degenerative lumbar spinal stenosis Elevated blood pressure reading High risk medication use 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 Medication monitoring encounter Nontuberculous atypical mycobacterial disease Osteoporosis Pseudoaneurysm of carotid artery Rheumatoid arthritis with rheumatoid factor of multiple sites without organ or systems involvement Seropositive rheumatoid arthritis of multiple joints Surgical History History of back surgery History of knee replacement left on 10/12/16 and right on 12-05-16 Hx of cataract surgery bilateral Hx of cholecystectomy Status post carotid surgery Family History Other Hypertension Denies family history of Rheumatoid arthritis Diabetes CAD (coronary artery disease) Systemic lupus erythematosus (SLE) in adult Cancer Social History Smoking and tobacco status: former smoker Alcohol intake: former Housing: [facility] Marital status: Current occupational status: retired History of recent travel: No Data Anesthesia CBC & Chem 7: 05/22/20 02:02 05/22/20 02:02 Other Labs: Laboratory Results - last 48 hr 05/21/20 05/21/20 05/21/20 05:53 05:53 17:57 WBC 13.6 H RBC 3.76 L Hgb 10.4 L Hct 34.3 L MCV 91.2 MCH 27.7 L MCHC 30.3 RDW 14.9 Plt Count 142 MPV 10.3 Neut % (Auto) 88.6 Lymph % (Auto) 8.0 Catron % (Auto) 2.0 Eos % (Auto) 0.9 Baso % (Auto) 0.1 Neut # (Auto) 12.01 H Lymph # (Auto) 1.1 Catron # (Auto) 0.3 Eos # (Auto) 0.1 Baso # (Auto) 0.0 Nucleated RBC % (auto) 0.1 Nucleated RBCs # 0.0 PT 12.50 INR 0.91 Sodium 138 Potassium 3.0 L Chloride 100 Carbon Dioxide 29 Anion Gap 12.0 BUN 10 Creatinine 0.7 GFR Calculation Not Reportable Glucose 75 Calculated Osmolality 281 L Calcium 8.4 L Total Bilirubin 1.0 AST 22 ALT 15 Alkaline Phosphatase 68 Total Protein 5.3 L Albumin 3.0 L Globulin 2.3 05/22/20 05/22/20 02:02 02:02 WBC 10.8 H RBC 3.38 L Hgb 9.4 L Hct 30.9 L MCV 91.4 MCH 27.8 L MCHC 30.4 RDW 14.9 Plt Count 135 MPV 10.5 H Neut % (Auto) 86.9 Lymph % (Auto) 9.1 Catron % (Auto) 2.4 Eos % (Auto) 0.9 Baso % (Auto) 0.1 Neut # (Auto) 9.40 H Lymph # (Auto) 1.0 Catron # (Auto) 0.3 Eos # (Auto) 0.1 Baso # (Auto) 0.0 Nucleated RBC % (auto) 0 Nucleated RBCs # 0.0 PT INR Sodium 139 Potassium 3.2 L Chloride 101 Carbon Dioxide 28 Anion Gap 13.2 BUN 7 L Creatinine 0.7 GFR Calculation Not Reportable Glucose 90 Calculated Osmolality 283 L Calcium 8.5 Total Bilirubin 0.8 AST 20 ALT 14 Alkaline Phosphatase 71 Total Protein 5.0 L Albumin 2.7 L Globulin 2.3 Micro: Microbiology 05/17/20 05:44 Blood Culture - Final Blood NO GROWTH AFTER 5 DAYS 05/17/20 05:42 Blood Culture - Final Blood NO GROWTH AFTER 5 DAYS Cardiac Studies: No Data to Display
--- NOTE | 2020-05-22 13:15 | PM.PACU ---
PACU note Post-Anesthesia Exam: awake and vital signs stable Disposition: back to floor
--- NOTE | 2020-05-22 13:17 | PC.OT ---
OT TREATMENT WITH HELD DUE TO PATIENT IN SURGERY THIS A.M. FOR PEG TUBE PLACEMENT.
[2020-05-22] MEDS: linezolid premix 600 MG/300 ML PREMIX 300 MG IV ×2 (13:52)
[2020-05-22] MEDS: morphine 4 mg/mL SDV 1 mL 2 MG IVP ×2 (13:58→17:09)
--- NOTE | 2020-05-22 14:32 | PM.PN ---
Subjective Subjective: Interval history: No events overnight. Patient has a comfortable night. Denies any nausea, vomiting, headache. He looks comfortable. Patient is due for PEG tube later in the day today. Vitals/I&O/Wt Last Vital Signs Temp 98.1 F 05/22/20 13:38 Pulse 103 H 05/22/20 13:38 Resp 18 05/22/20 13:58 BP 149/81 05/22/20 13:38 Pulse Ox 100 05/22/20 13:38 05/21/20 05/22/20 05/22/20 22:59 06:59 14:59 Intake Total 50 / 1738 50 / 1788 300 / 300 Output Total 0 / 0 0 / 0 Balance 50 / 1738 50 / 1788 300 / 300 Weight last 48 hrs Weight 48.716 kg Weight 47.797 kg Physical Exam Narrative: EXAM NARRATIVE: General: No acute distress, AO x3, cachectic, HEENT: PERRLA, pupils bilaterally equal and reactive Chest: Bronchial breath sounds bilaterally, no added sounds, equal good air entry bilaterally CVS: S1-S2 regular, no murmurs, no tachycardia, no gallops, no rubs Abdomen: Soft, nontender, no organomegaly, bowel sounds present Neuro: No focal deficits, no facial deformity, AO x3, power 5/5 in all limbs Data : 05/22/20 02:02 05/22/20 02:02 Micro: Microbiology 05/17/20 05:44 Blood Culture - Final Blood NO GROWTH AFTER 5 DAYS 05/17/20 05:42 Blood Culture - Final Blood NO GROWTH AFTER 5 DAYS A&P Assessment and plan (1) Recurrent aspiration pneumonia: Due to recurrent aspiration pneumonia and COPD exacerbation. Continue with Zosyn, linezolid. Last day to finish 10-day course today. Follow sputum culture. For now growing Dariana species. MRSA positive. DuoNebs every 6 hours. Oxygen supplementation keeping saturation over 90%. Minimal trial of swallowing was not reassuring, with cough with even small sips of water trying to take an oral medication. Barium swallow done today morning consistent with severe aspiration. Plan for PEG tube today. Continue with D5 NS at 50 cc/h. Status: Acute (2) Septic shock: Resolved. Has remained hemodynamically stable. Keep mean arterial pressure over 65 mmHg. Continue monitoring on medical floor. TTE with normal ejection fraction, grade 1 diastolic dysfunction. No valve abnormalities. HAMLET resolved. Acute metabolic encephalopathy resolved. Abdomen is soft. Says appetite good. No abdominal pain or diarrhea. Intermittent episodes of vomiting in the morning for a long time especially after eating at night. CTAP oral without acute abnormalities. Status: Acute (3) Adrenal insufficiency: Takes prednisone 10 mg oral daily which is equal into Solu-Medrol 8 mg IV. Reduce Solu-Medrol dose to 20 mg daily. We will switch to oral after PEG tube placement. Acute on chronic adrenal sufficiency appears to have improved. Blood pressures have been stable over this resolved hypotension. Decrease steroid dose and frequency. Status: Acute (4) Vomiting: Without recurrence. CTAP oral contrast unremarkable. PPI given chronic steroid. Status: Acute (5) Acute kidney injury: Most likely prerenal due to hypotension on admission. Continue to monitor BMP and electrolytes daily. Medication reconstruction done for nephrotoxic drugs. Status: Resolved (6) Sarcopenia: He is very thin, with muscle loss. Weight in ER is noted as 149 pounds, however, per discussion with son recently weight at the senior living was closer to 103 pounds. This appears to be accurate weight. Frequent repositioning in bed. Surgical bed. Status: Acute (7) Declining functional status: Overall functional decline, with progressive weight loss, declining functional capacity, requiring assistance with transfers, has been progressively becoming mostly nonambulatory. Given overall trajectory, and also with her current suspect aspiration pneumonia prognosis overall is probably not good. At this time will treat acute illness as above. Once he is more stable assessment by PT, OT. Continue speech therapy follow-up which reportedly he has been getting over at SNF as well. 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 Urbina Recent non-STEMI: Back during hospitalization in March, treated medically at that time as he had declined additional assessment and intervention by coronary angiography. Plans were for possibly follow-up with outpatient angiogram if he were agreeable. At this time continue cardiac medications. Other chronic medical problems. Limited resuscitation. Protonix for PUD prophylaxis. Heparin 5000 every 12 for DVT prophylaxis. After extensive goals of care discussion both with the patient and patient's they had decided that patient and patient's will be going to [facility]. Patient has agreed to get a PEG tube placed. Patient is undergoing PEG tube placement later in the day today. After PEG tube placement patient can most likely be discharged tomorrow on continuous PEG tube feeds. Patient would be on slow PEG tube feeds for first 7 to 10 days because he had a high risk of refeeding syndrome. He will have to have labs including BMP, phosphorus, magnesium to be checked every 3 days for first 1 week. Patient will require COVID-19 to be ruled out prior to discharge. Will send COVID-19 PCR. Attestations Medical Necessity Statement*: Recurrent aspiration pneumonia, severe protein energy malnutrition, awaiting PEG tube placement Time Spent in Patient Care: Greater than 35 minutes (>than 50% of time spent in counselling and/or direct pt care on unit). Coding Level of Care Code Acute Stitch Bonding Machine Tender Helper for Chg Fwd Diagnoses Recurrent aspiration pneumonia J69.0 Septic shock A41.9; R65.21 Adrenal insufficiency E27.40 Vomiting R11.10 Acute kidney injury N17.9 Sarcopenia M62.84 Declining functional status R53.81
[2020-05-22] MEDS: ipratropium-albuterol 3 mL Neb INHALATION (14:53)
[2020-05-22] MEDS: gabapentin 300 mg Capsule PO (17:09)
[2020-05-22] MEDS: sennosides-docusate Tablet 2 TAB PO (22:17)
[2020-05-22] MEDS: atorvastatin 40 mg Tablet 20 MG PO (22:18)
[2020-05-23] VITALS (15 sets, daily range): BP systolic 108–118; BP diastolic 71–78; PULSE 90–110; RESP 12–21; TEMP 35.9–36.8; O2SAT 90–99
[2020-05-23] MEDS: piperacillin-tazobactam 3.375 GM in sodium chloride 0.9% (plus) 50 ML IV ×2 (01:29→11:55)
[2020-05-23] MEDS: linezolid premix 600 MG/300 ML PREMIX 300 MG IV (01:29)
[2020-05-23] MEDS: ipratropium-albuterol 3 mL Neb INHALATION ×4 (02:25→20:03)
[2020-05-23] MEDS: dextrose 5%-sod chloride 0.9% 1,000 ML 50 ML IV (05:06)
[2020-05-23 06:06] LABS: Basophils % 0.1 %; Eosinophils # 0.1 10^3/uL (0.0-0.8); Eosinophils % 1.1 %; Hemoglobin 9.7 g/dL (11.7-16.6); Lymphocytes # 0.9 10^3/uL (0.8-4.8); Lymphocytes % 7.6 %; Mean Corpuscular HGB Conc 30.3 g/dL (30.0-36.0); Mean Corpuscular Hemoglobin 27.6 pg (28.0-34.0); Mean Corpuscular Volume 91.2 fL (80-94); Mean Platelet Volume 10.9 fL (7.4-10.4); Monocytes # 0.2 10^3/uL (0.2-0.9); Monocytes % 1.8 %; Neutrophils # 10.34 10^3/uL (1.8-7.7); Neutrophils % 88.9 %; Nucleated Red Blood Cells % 0 %; Platelet Count 100 10^3/cmm (130-400); Red Blood Count 3.51 10^6/uL (4.1-5.3); Red Cell Distribution Width 14.7 % (12.1-15.1); White Blood Count 11.6 10^3/uL (4.0-10.0)
[2020-05-23 06:42] LABS: Alanine Aminotransferase 14 U/L (0-41); Alkaline Phosphatase 72 IU/L (40-130); Anion Gap 12.8 (5-19); Aspartate Amino Transferase 19 U/L (0-40); Blood Urea Nitrogen 8 mg/dL (8-23); Calcium 8.1 mg/dL (8.5-10.5); Carbon Dioxide 28 mmol/L (22-29); Chloride 100 mmol/L (98-107); Globulin 2.2 g/dL (1.3-4.6); Glucose 86 mg/dL (65-115); Osmolality Calculated 284 mOsm/kg (285-295); Sodium 138 mmol/L (136-145); Total Bilirubin 0.8 mg/dL (0.15-1.2); Total Protein 5.2 g/dL (6.6-8.7)
[2020-05-23 07:01] LABS: Potassium 2.8 mmol/L (3.5-5.1)
--- NOTE | 2020-05-23 08:11 | ANE.PACU2 ---
Inpatient post-anesthesia follow up: Airway intact: Yes Vital signs: Temperature 97.7 F Pulse Rate [Apical ] 115 Pulse Rate 104 Respiratory Rate 12 Blood Pressure [Ri ght Arm] 87/63 Blood Pressure 109/73 Pulse Oximetry 90 Oxygen Delivery Me thod Nasal Cannula Oxygen Flow Rate 2 Fraction of Inspir ed Oxygen Hydration adequate: Yes Nausea and vomiting: No Pain level: 1 Mental status: Baseline
[2020-05-23] MEDS: potassium chloride oral liq 20 mEq/15 mL UDC 80 MEQ PEG-TUBE (08:44)
[2020-05-23] MEDS: gabapentin 300 mg Capsule PO (08:45)
[2020-05-23] MEDS: polyethylene glycol 3350 Pkt 17 gm PO (08:45)
[2020-05-23] MEDS: pantoprazole 40 mg SDV IVP (08:45)
--- NOTE | 2020-05-23 09:50 | PM.PN ---
Subjective Subjective: Interval history: Patient overall is about the same, undergone uneventful gastrostomy feeding tube placement yesterday under endoscopic guidance. Otherwise no acute events overnight Vitals/I&O/Wt Last Vital Signs Temp 97.5 F L 05/23/20 08:00 Pulse 101 H 05/23/20 08:56 Resp 21 H 05/23/20 08:55 BP 110/71 05/23/20 08:00 Pulse Ox 97 05/23/20 08:55 05/22/20 05/23/20 05/23/20 22:59 06:59 14:59 Intake Total 350 / 700 Output Total 100 / 100 230 / 330 Balance 250 / 600 -230 / 370 Weight last 48 hrs Weight 107 lb 1 oz Weight 107 lb 6.4 oz Physical Exam Narrative: EXAM NARRATIVE: Patient is conscious alert BMI 17 Head and neck examination PERRLA no masses no cervical lymphadenopathy no jaundice Abdomen nontender except mildly at the G-tube insertion nondistended soft no organomegaly guarding or rigidity/no signs of peritonitis Skin level marked at 5/6 cm Data : 05/23/20 04:29 05/23/20 04:29 Micro: Microbiology 05/17/20 05:44 Blood Culture - Final Blood NO GROWTH AFTER 5 DAYS 05/17/20 05:42 Blood Culture - Final Blood NO GROWTH AFTER 5 DAYS A&P Assessment and plan (1) Difficulty in swallowing: From surgical standpoint of view can start tube feeds today Continue PEG tube care Keep abdominal binder to prevent the tube from being pulled out Assurance and education All questions have been answered and all concerns have been addressed to patient's satisfaction. Status: Acute Attestations Medical Necessity Statement*: Per hospitalist service Time Spent in Patient Care: (>than 50% of time spent in counselling and/or direct pt care on unit). Coding Level of Care Code Acute Mail Handlers Supervisor for Chg Fwd Diagnoses Difficulty in swallowing R13.10
--- NOTE | 2020-05-23 11:22 | PM.PN ---
Subjective Subjective: Interval history: No acute events last 24 hours. Underwent PEG tube placement yesterday. Tolerated the procedure well. Has had comfortable night. Denies any nausea, vomiting. Labs and vitals noted. Vitals/I&O/Wt Last Vital Signs Temp 97.5 F L 05/23/20 08:00 Pulse 101 H 05/23/20 08:56 Resp 21 H 05/23/20 08:55 BP 110/71 05/23/20 08:00 Pulse Ox 97 05/23/20 08:55 05/22/20 05/23/20 05/23/20 22:59 06:59 14:59 Intake Total 350 / 700 Output Total 100 / 100 230 / 330 Balance 250 / 600 -230 / 370 Weight last 48 hrs Weight 48.563 kg Weight 48.716 kg Physical Exam Narrative: EXAM NARRATIVE: General: No acute distress, AO x3, cachectic, HEENT: PERRLA, pupils bilaterally equal and reactive Chest: Bronchial breath sounds bilaterally, no added sounds, equal good air entry bilaterally CVS: S1-S2 regular, no murmurs, no tachycardia, no gallops, no rubs Abdomen: Soft, nontender, no organomegaly, bowel sounds present Neuro: No focal deficits, no facial deformity, AO x3, power 5/5 in all limbs Data : 05/23/20 04:29 05/23/20 04:29 A&P Assessment and plan (1) Recurrent aspiration pneumonia: Due to recurrent aspiration pneumonia and COPD exacerbation. Zosyn linezolid today. Patient to finish 10-day course. Follow sputum culture. For now growing Dariana species. MRSA positive. DuoNebs every 6 hours. Oxygen supplementation keeping saturation over 90%. Minimal trial of swallowing was not reassuring, with cough with even small sips of water trying to take an oral medication. Barium swallow done today morning consistent with severe aspiration. Start PEG tube feeds today. Patient is at high risk of refeeding syndrome. Will start continuous feeds with 20 cc/h increasing 10 cc every 6 hours with goal of 40 cc/h for now. 100 cc free water flush every 6 hours. Patient would most likely require BMP, phosphorus, magnesium to be checked every 3 days for 1 week. Dietitian consult. Status: Acute (2) Septic shock: Resolved. Has remained hemodynamically stable. Keep mean arterial pressure over 65 mmHg. Continue monitoring on medical floor. TTE with normal ejection fraction, grade 1 diastolic dysfunction. No valve abnormalities. HAMLET resolved. Acute metabolic encephalopathy resolved. Abdomen is soft. Says appetite good. No abdominal pain or diarrhea. Intermittent episodes of vomiting in the morning for a long time especially after eating at night. CTAP oral without acute abnormalities. Status: Acute (3) Adrenal insufficiency: Takes prednisone 10 mg oral daily which is equal into Solu-Medrol 8 mg IV. As PEG tube is in will switch from IV to oral prednisone. Will give 20 mg of prednisone for 2 days and then back to baseline dose of 10 mg daily. Status: Acute (4) Vomiting: Without recurrence. CTAP oral contrast unremarkable. PPI given chronic steroid. Status: Acute (5) Acute kidney injury: Most likely prerenal due to hypotension on admission. Continue to monitor BMP and electrolytes daily. Medication reconstruction done for nephrotoxic drugs. Status: Resolved (6) Sarcopenia: He is very thin, with muscle loss. Weight in ER is noted as 149 pounds, however, per discussion with son recently weight at the senior living was closer to 103 pounds. This appears to be accurate weight. Frequent repositioning in bed. Surgical bed. Status: Acute (7) Declining functional status: Overall functional decline, with progressive weight loss, declining functional capacity, requiring assistance with transfers, has been progressively becoming mostly nonambulatory. Given overall trajectory, and also with her current suspect aspiration pneumonia prognosis overall is probably not good. At this time will treat acute illness as above. Once he is more stable assessment by PT, OT. Continue speech therapy follow-up which reportedly he has been getting over at SNF as well. 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 Urbina Recent non-STEMI: Back during hospitalization in March, treated medically at that time as he had declined additional assessment and intervention by coronary angiography. Plans were for possibly follow-up with outpatient angiogram if he were agreeable. At this time continue cardiac medications. Other chronic medical problems. Limited resuscitation. Protonix for PUD prophylaxis. Heparin 5000 every 12 for DVT prophylaxis. After extensive goals of care discussion both with the patient and patient's they had decided that patient and patient's will be going to [facility] on discharge. Patient has agreed to get a PEG tube placed. Patient is undergoing PEG tube placement later in the day today. After PEG tube placement patient can most likely be discharged tomorrow on continuous PEG tube feeds. Patient would be on slow PEG tube feeds for first 7 to 10 days because he had a high risk of refeeding syndrome. He will have to have labs including BMP, phosphorus, magnesium to be checked every 3 days for first 1 week. COVID-19 PCR sent. Awaiting results. After COVID-19 results come back patient can be discharged back to [facility]. Attestations Medical Necessity Statement*: Severe protein energy malnutrition, post PEG placement, recurrent aspiration pneumonia, awaiting COVID-19 results before discharge to SNF. Time Spent in Patient Care: Greater than 35 minutes (>than 50% of time spent in counselling and/or direct pt care on unit). Coding Level of Care Code Acute Carpenter Helper Hardwood Flooring for Chg Fwd Diagnoses Recurrent aspiration pneumonia J69.0 Septic shock A41.9; R65.21 Adrenal insufficiency E27.40 Vomiting R11.10 Acute kidney injury N17.9 Sarcopenia M62.84 Declining functional status R53.81 Severe protein-energy malnutrition E43
[2020-05-23] MEDS: potassium chloride premix 40 MEQ/100 ML PREMIX 25 MEQ IV (11:55)
--- NOTE | 2020-05-23 12:02 | PC.NURSE ---
Mikhail Moya called and notified of Dietitian order for this patient. is his number.
--- NOTE | 2020-05-23 13:58 | PC.OT ---
Treatment attempted but pt declined all things offered including grooming and therapeutic exercise. Will attempt again tomorrow. Co sign: MARIA TERESA Reid/Kell
--- NOTE | 2020-05-23 14:49 | PC.NURSE ---
20cc of Ensure plus given through patient's PEG tube at this time. Flushed with 50cc of water. Patient tolerated well.
[2020-05-23] MEDS: ondansetron 2 mg/ML SDV 2 mL 4 MG IVP (15:30)
[2020-05-23] MEDS: morphine 4 mg/mL SDV 1 mL 2 MG IVP ×2 (15:33→22:54)
--- NOTE | 2020-05-23 15:50 | PC.NURSE ---
20cc of Ensure Plus given via PEG tube at this time. Patient tolerated well. Flushed with 10 cc of water.
--- NOTE | 2020-05-23 16:50 | PC.NURSE ---
20cc of Ensure plus given via PEG tube and flushed with 10cc of water. Patient tolerated well.
--- NOTE | 2020-05-23 17:46 | PC.NURSE ---
Patient refused this feeding because he does not want to stay up at 45 degrees in bed. Patient states that it hurts his back. Patient has only had 2 mls of residual after his two feedings. at bedside.
--- NOTE | 2020-05-23 18:41 | PC.NURSE ---
Patient refused this hour of PEG tube feeding again. Patient states, I need pain medication first can ypu come back when my pain medication is due and I will get it then because I will be able to sit up then and it not hurt. Patient at bedside.
[2020-05-23] MEDS: sennosides-docusate Tablet 2 TAB PO (22:51)
[2020-05-23] MEDS: atorvastatin 40 mg Tablet 20 MG PT (22:51)
[2020-05-24] VITALS (9 sets, daily range): BP systolic 111–123; BP diastolic 72–85; PULSE 106–116; RESP 16–20; TEMP 36.8–37; O2SAT 93–96; BMI 17.2
[2020-05-24 02:44] LABS: Coronavirus Lab Test PTC Negative
[2020-05-24] MEDS: morphine 4 mg/mL SDV 1 mL 2 MG IVP (02:46)
[2020-05-24] MEDS: dextrose 5%-sod chloride 0.9% 1,000 ML 50 ML IV (02:47)
[2020-05-24] MEDS: ipratropium-albuterol 3 mL Neb INHALATION (03:00)
--- NOTE | 2020-05-24 05:39 | PC.NURSE ---
Tube feedings held for residual of 140ml+.
[2020-05-24 06:27] LABS: Alanine Aminotransferase 14 U/L (0-41); Alkaline Phosphatase 76 IU/L (40-130); Anion Gap 12.2 (5-19); Aspartate Amino Transferase 18 U/L (0-40); Blood Urea Nitrogen 8 mg/dL (8-23); Calcium 8.2 mg/dL (8.5-10.5); Carbon Dioxide 26 mmol/L (22-29); Chloride 107 mmol/L (98-107); Globulin 2.2 g/dL (1.3-4.6); Glucose 98 mg/dL (65-115); Osmolality Calculated 290 mOsm/kg (285-295); Potassium 4.2 mmol/L (3.5-5.1); Sodium 141 mmol/L (136-145); Total Bilirubin 0.5 mg/dL (0.15-1.2); Total Protein 5.2 g/dL (6.6-8.7)
[2020-05-24 06:40] LABS: Magnesium 1.5 mg/dL (1.7-2.3); Phosphorus 1.5 mg/dL (2.5-4.5)
[2020-05-24] MEDS: predniSONE 10 mg Tablet PEG-TUBE (09:03)
[2020-05-24] MEDS: pantoprazole DR 40 mg Tablet PEG-TUBE (09:03)
[2020-05-24] MEDS: gabapentin 300 mg Capsule PEG-TUBE (09:03)
[2020-05-24] MEDS: polyethylene glycol 3350 Pkt 17 gm PO (09:03)
--- NOTE | 2020-05-24 09:52 | PC.NUTR ---
NUTR TF RECOMMENDATIONS: Jevity with continuous rate of 45 ml/hr providing 1296 kcal (96%), 59 g PRO (120%), and 872 ml fluid (64%)(%NEEDS). Suggest starting TF at 25 ml/hr and increase by 10 ml Q6H as tolerated till goal rate is met. Suggest H2O flushes of 60 ml Q4H to approach fluid needs or per physician. BOLUS: Daily goal of 4-5 cans Jevity DAILY over 3 feedings with H2O flushes of 1/2 cup after each feeding.
--- NOTE | 2020-05-24 10:03 | PC.NURSE ---
Patient's residual is 20 mls at this time. Tube feeding started again at this time at 20cc an hour. Patient resting in bed with at bedside.
--- NOTE | 2020-05-24 10:54 | P.DS_ITS ---
Discharge Providers Date of Admission: 05/13/20 15:17 Date of Discharge: May 24, 2020 Attending Provider at Admission: Jd Smith Attending Provider at Discharge: Arie Gonzalez MD Consults: Surgery: Dr. Ferro Primary Care Provider: Meng Wu MD Diagnoses at Discharge Discharge Diagnosis (1) Recurrent aspiration pneumonia: Status: Acute (2) Septic shock: Status: Acute (3) Adrenal insufficiency: Status: Acute (4) Vomiting: Status: Acute (5) Acute kidney injury: Status: Resolved Problem details: Improved, prerenal (6) Sarcopenia: Status: Acute (7) Declining functional status: Status: Acute (8) Severe protein-energy malnutrition: Status: Acute Reason for Visit Reason for Visit: N/V, WEAKNESS Hospital Course Hospital Course: After extensive goals of care discussion both with the patient and patient's they had decided that patient and patient's will be going to [facility] on discharge. Patient has agreed to get a PEG tube placed. Patient is undergoing PEG tube placement later in the day today. After PEG tube placement patient can most likely be discharged tomorrow on continuous PEG tube feeds. Patient would be on slow PEG tube feeds for first 7 to 10 days because he had a high risk of refeeding syndrome. He will have to have labs including BMP, phosphorus, magnesium to be checked every 3 days for first 1 week. Discharge Summary: Lg Lund is a 79 year old gentleman recently admitted and treated for PNA at [facility], recently discharged to SNF, with history of L carotid artery bifurcation aneurysm, subsequently with v ocal cord dysfunction, dysphonia and dysphagia with recent admission here 04/01- 04/04 with pneumonia thought to be due to aspiration, treated with antibiotic, with dysphagia diet on nectar thick liquids, with trial of honey thick liquids, at that time with consideration of alternatives to oral feeding, with recommendation to follow-up with PCP with consideration of possible feeding tube which at that time he had declined, with non-STEMI treated medically as he had declined invasive intervention, with continuation of medical therapy and recommendation by cardiology for consideration of coronary geography on elective basis if he agrees. He and his did not want to consider skilled nurse facility at the time, and was discharged home with home health. She has been having to help him with activities of daily life as he is nonambulatory. Has sacral pressure ulcers. He presents to emergency department due to shortness of breath, without any chest pain. He is not a good historian, and is not really able to move tell me very well where he is coming from. He is somewhat stumbles upon the answers after some trial and error telling me that he was living in [place] previously, but recently has moved down to [place]. It appears that after his [facility] hospitalization he was discharged to intermediate. He knows he is currently in [place]. He is not sure about the name of the hospital. States that his breathing is currently better. Denies any other complaints, although does say that he had an episode of vomiting this morning, and that this has been somewhat recurrent issue. Denies abdominal pain. No further vomiting. No diarrhea. does confirm that he had an episode of vomiting at [facility] where he is currently staying after his last hospitalization, for perhaps ~3 wks. She does not remember much about what was treated during that hospitalization and is agreeable with requesting records. She does report he would occasionally vomit in the morning, usually after he would eat something in the evening. She denies that he has history of diabetes. He is chronically on prednisone, and apparently they have tried to wean down in the past but unsuccessfully due to chronic adrenal insufficiency. Per discussion with intermediate staff it appears today he did have an episode of vomiting, and also had decompensation in his respiratory condition, short of breath, as well as yesterday was noted to have some productive cough. Previously on oxygen as needed currently requiring 4 L by nasal cannula in ER, with finding of right lower lobe worsening infiltrate compared to prior, with leukocytosis 17.9, tachycardia on presentation 105-115, sinus, concerning for sepsis, hypotensive, although maintaining borderline blood pressures after 2 L IV fluid challenge, BP 82/51 in ER. Reportedly 2 days ago blood pressures were 126/54, 134/58. Patient had a prolonged hospitalization for around 12 days. At start patient was in severe sepsis because of which he had developed HAMLET, acute metabolic encephalopathy because of aspiration pneumonia. During hospitalization patient did not require mechanical ventilation for pressors and was treated with IV flu ids and broad-spectrum antibiotics along with methylprednisone for his chronic adrenal insufficiency. He responded well to the treatment and was eventually transferred to the floors. Patient was eventually started on trial feeds again after which he started having aspiration again and worsening of his breathing status. Modified barium swallow was done which confirmed the suspicion of recurrent aspirations. Unfortunately patient is a high risk of recurrent aspirations because of vocal cord dysfunction after his recent surgery. Further goals of care were discussed both with the patient and patient's and they decided to have PEG tube placed for further nutrition supplementation. Patient underwent PEG tube placement on May 23. He tolerated the procedure well. PEG tube feeds are to be increased very gradually because patient is a high risk for refeeding syndrome because of severe protein energy malnutrition. All his medications have been changed to be given through PEG tube. Patient is been discharged in hemodynamic stable condition with advised to follow-up with his primary care provider and ENT provider in next 1 month. PEG tube feeds recommendations have been given in the discharge summary as well. Physical Exam Narrative: EXAM NARRATIVE: General: No acute distress, AO x3, cachectic, HEENT: PERRLA, pupils bilaterally equal and reactive Chest: Bronchial breath sounds bilaterally, no added sounds, equal good air entry bilaterally CVS: S1-S2 regular, no murmurs, no tachycardia, no gallops, no rubs Abdomen: Soft, nontender, no organomegaly, bowel sounds present, PEG tube site clean Neuro: No focal deficits, no facial deformity, AO x3, power 5/5 in all limbs Discharge Data Data Completed and Pending: Completed Studies During Hospitalization Category Date Time Status CT abdomen pelvis wo con [id number] Rout ine Cat Scan 05/15/20 09:52 Completed CXRP [XR chest 1V portable [id number]] R outine Exams 05/15/20 15:41 Completed FL barium swallow modifd [id number] Rout ine Exams 05/21/20 08:00 Completed XR chest 1V noemy ble [id number] Stat Exams 05/13/20 10:27 Completed CV echo complete* [id number] Routine Ultrasound 05/15/20 08:03 Completed US renal BI* [id number] Routine Ultrasound 05/14/20 07:00 Completed Pending at discharge Category Date Time Status Blood Culture Sta t Lab 05/13/20 11:05 Results Labs from last 24 hours 05/24/20 05/24/20 05/22/20 05:24 05:24 15:57 Sodium 141 Potassium 4.2 Chloride 107 Carbon Dioxide 26 Anion Gap 12.2 BUN 8 Creatinine 0.7 GFR Calculation Not Reportable Glucose 98 Calculated Osmolal ity 290 Calcium 8.2 L Phosphorus 1.5 L Magnesium 1.5 L Total Bilirubin 0.5 AST 18 ALT 14 Alkaline Phosphata se 76 Total Protein 5.2 L Albumin 3.0 L Globulin 2.2 Nasal/Oral COVID-1 9 PCR Negative Vitals: Last Vital Signs Temp 98.3 F 05/24/20 07:36 Pulse 106 H 05/24/20 08:09 Resp 18 05/24/20 08:09 BP 111/72 05/24/20 07:36 Pulse Ox 96 05/24/20 08:09 Discharge Plan Discharge Patient Disposition: Xfer SNF Condition: Stable Prescriptions: New pantoprazole 40 mg Tablet,Delayed Release (Dr/Ec) 40 mg peg-tube DAILY Qty: 15 RF: 0 magnesium oxide 400 mg (241.3 mg magnesium) Tablet 400 mg peg-tube BID Qty: 30 RF: 0 Phospha 250 Neutral 250 mg Tablet 250 mg peg-tube BID Qty: 30 RF: 0 ropinirole 0.25 mg Tablet 0.25 mg peg-tube BEDTIME Qty: 15 RF: 0 Continued Senna-S 8.6-50 mg Tablet 2 tab PO BEDTIME RF: 0 Changed polyethylene glycol 3350 [Miralax] 17 gram/dose powder 17 gm feeding tube DAILY PRN (Reason: Constipation) Qty: 0 RF: 0 prednisone 10 mg tablet 10 mg feeding tube DAILY Qty: 0 RF: 0 gabapentin 300 mg capsule 300 mg feeding tube BID 30 Days Qty: 60 RF: 0 Mintox 200-200-20 mg/5 mL Suspension 30 ml feeding tube Q4H PRN (Reason: Indigestion) Qty: 0 RF: 0 atorvastatin 10 mg tablet 10 mg feeding tube BEDTIME Qty: 0 RF: 0 ethambutol 400 mg tablet 800 mg feeding tube QAM Qty: 0 RF: 0 hydromorphone 4 mg Tablet 2 mg feeding tube BID Qty: 10 RF: 0 Milk of Magnesia 400 mg/5 mL Suspension 15 ml feeding tube Q4H PRN (Reason: Constipation) Qty: 0 RF: 0 Discontinued furosemide 20 mg Tablet 20 mg PO DAILY RF: 0 hydromorphone 4 mg Tablet 4 mg PO BID PRN (Reason: Pain) RF: 0 Discharge Orders: Discharge Order (Routine); Ordered 05/24/20 Ordered By: Arie Gonzalez Referrals: [facility] [Outside] ([facility] will make all follow up appointments for patient.) Discharge Diet: Start new tube feeds as directed Discharge Activity: Increase activity as tolerated Activity Restrictions/Additional Instructions: Jevity with continuous rate of 45 ml/hr providing 1296 kcal (96%), 59 g PRO (120%), and 872 ml fluid (64%)(%NEEDS). Suggest starting TF at 20 ml/hr and increase by 10 ml Q6H as tolerated till goal rate is met. Suggest H2O flushes of 100 ml Q6H to approach fluid needs BOLUS: Daily goal of 4-5 cans Jevity DAILY over 3 feedings with H2O flushes of 1/2 cup after each feeding. For now continue the continuous tube feeds for next 1 week and increase gradually. Patient is at high risk of getting refeeding syndrome so please increase the PEG tube feeds very gradually. Please check BMP, magnesium, phosphorus every 3 days for next 1 week. Discharge Attestations Time Spent in Discharge Care*: greater than 30 min Specific Discharge Activities: Specific discharge activities: educating patient, educating and/or supporting family/caregiver, discussing with pcp/other providers, discussing with employment evaluator/case manager/social workers/dc planners, documenting/other paperwork and evaluating patient/reviewing data Status at Discharge: Cognitive status at discharge: cognitively intact , Behavioral status at discharge: cooperative , Functional status at discharge: bed bound Overall status at discharge: patient has a new baseline Quality Metrics Clinical Quality Measures During this hospital stay, did patient experience: None Coding Level of Care Code Acute Director Auto for Chg Fwd Diagnoses Recurrent aspiration pneumonia J69.0 Septic shock A41.9; R65.21 Adrenal insufficiency E27.40 Vomiting R11.10 Acute kidney injury N17.9 Sarcopenia M62.84 Declining functional status R53.81 Severe protein-energy malnutrition E43
--- NOTE | 2020-05-24 13:24 | DCPLANNER ---
Updated the Pg 2 of IM and discussed with pt's . No questions. She states they are ready to go. She appreciates the visit. Copy provided.
--- NOTE | 2020-05-24 14:00 | PC.NURSE ---
[facility] [place] at this time.
--- NOTE | 2020-05-24 14:30 | PC.NURSE ---
Patient's PICC line removed at this time. Tegadrem caused a skin teat to patient's inner right arm. Bleeding controlled Optifoam applied.
--- NOTE | 2020-05-24 14:50 | PC.NURSE ---
Feeding tube feeding stopped at this time. Patient to be transferred to [facility] in [place]. at bedside.
--- NOTE | 2020-05-24 15:20 | PC.NURSE ---
Patient discharged at this time with [facility] service. Patient will be taken to [facility] in [place].
--- NOTE | 2020-05-25 11:46 | PM.PN ---
Subjective Subjective: Interval history: Patient was brought from the intermediate as there has been a concern about a stool-like material coming around the G-tube. According to the ED nurse practitioner provider that evaluated the patient she was told and report that a pH study was done and it was high per intermediate. Patient was sent to the emergency department for further evaluation. There was no report about any feeding intolerance in fact patient has been tolerating well his tube feeds since discharge. I was contacted by Ms. Laura Osorio nurse practitioner about the patient and he continued to have stable vital signs and has been started on tube feeds without complications as the PEG tube was placed by me last Wednesday and patient was discharged to the intermediate. Patient's spouse is present bedside in the ER room #4 I did evaluate the patient with Ms. Sanchez Vitals/I&O/Wt Last Vital Signs Temp 98.6 F 05/24/20 15:19 Pulse 116 H 05/24/20 15:19 Resp 18 05/24/20 15:19 BP 123/78 05/24/20 15:19 Pulse Ox 96 05/24/20 15:19 Weight last 48 hrs Weight 107 lb 1 oz Physical Exam Narrative: EXAM NARRATIVE: Patient is conscious alert BMI 17.3 Head and neck examination PERRLA no masses no cervical lymphadenopathy no jaundice Abdomen nontender step mildly around the G-tube nondistended soft no organomegaly guarding or rigidity/no signs of peritonitis. G-tube is around 5/6 cm at the skin level which consistent with the index time of insertion there is no ravindra-G-tube irritation of the skin or any fecal contents except for some residual gastric contents. The patient was sent over from the intermediate with the dressing and had dry green sticky substance consistent with bilious contents and I did perform a sniff test bedside by myself and did not have any concerning order Data : 05/23/20 04:29 05/24/20 05:24 A&P Assessment and plan (1) Leaking PEG tube: 11:40 AM after history taking physical examination and reviewing the chart we will plan to perform a KUB with Gastrografin bedside the G-tube study. Is on the clinical examination I do not believe that there is any potential complication associated with the PEG tube at this point. KUB was done and showed; FINDINGS: Peg tube noted. Contrast seen within the gastric lumen and 1st portion of the duodenum. No obvious leakage. Visualized bowel normal in caliber. Right upper quadrant surgical clips. Vertebroplasty cement noted within the lumbar spine at multiple levels. XR/XR KUB portable [id number] IMPRESSION: Intragastric position of PEG tube. From surgical standpoint of view patient can return to the intermediate and resume tube feeds as scheduled. Return to surgery office per appointment made prior to discharge from the hospital Assurance and education All questions have been answered and all concerns have been addressed to patient's satisfaction. Status: Acute Attestations Medical Necessity Statement*: Patient evaluated in the emergency department Time Spent in Patient Care: 16 - 35 minutes (>than 50% of time spent in counselling and/or direct pt care on unit). Coding Level of Care Code Acute Tax Compliance Manager for Chg Fwd Diagnoses Leaking PEG tube K94.23
== END 2020-05-24 15:20 | disposition skilled nursing facility (03) | DRG 871 ==
LOC: ER 10:38 → MEDSURG 15:46 → ICU 15:52 → MEDSURG 05-16 11:06
PROVIDERS: Surgery; Admitting Provider Internal Medicine; Emergency Provider Family Medicine; PCP Internal Medicine; Visit Provider Student in an Organized Health Care Education/Training Program
PROC: 0DH63UZ Insertion of Feeding Device into Stomach, Percutaneous Approach (ICD-10-PCS; CPT 43246; principal; 2020-05-22 12:15)
DX: A41.02 Sepsis due to Methicillin resistant Staphylococcus aureus (principal); R65.21 Severe sepsis with septic shock; G93.41 Metabolic encephalopathy; E43 Unspecified severe protein-calorie malnutrition; J69.0 Pneumonitis due to inhalation of food and vomit; E27.40 Unspecified adrenocortical insufficiency; E87.2 Acidosis; Z68.1 Body mass index [BMI] 19.9 or less, adult; J44.1 Chronic obstructive pulmonary disease with (acute) exacerbation; I95.9 Hypotension, unspecified; Z87.01 Personal history of pneumonia (recurrent); I25.2 Old myocardial infarction; L89.152 Pressure ulcer of sacral region, stage 2; L89.322 Pressure ulcer of left buttock, stage 2; Z79.52 Long term (current) use of systemic steroids; M81.0 Age-related osteoporosis without current pathological fracture; M05.9 Rheumatoid arthritis with rheumatoid factor, unspecified; Z96.653 Presence of artificial knee joint, bilateral; Z87.891 Personal history of nicotine dependence; K29.70 Gastritis, unspecified, without bleeding; E86.0 Dehydration; M62.84 Sarcopenia
CPT/HCPCS: 12345; 36415; 36569; 36592; 43246; 71045; 74176; 74230; 76770; 76857; 80051; 80053; 81001; 81003; 82570; 82810; 83036; 83605; 83735; 83986; 84100; 84540; 85025; 85610; 86403; 87040; 87070; 87077; 87086; 87106; 87205; 87426; 87449; 87635; 87641; 92610; 92611; 93306; 94640; 94664; 96372; 96375; 97110; 97161; 97166; 97530; 99283; C9113; J1170; J1630; J1644; J2020; J2060; J2250; J2270; J2370; J2405; J2543; J2704; J2920; J2930; J3370; J3480; J7030; J7040; J7050; J7512; P9047

== ENCOUNTER 2020-05-25 11:11 | Emergency (ER) | payer MEDICARE, OTHER, SELFPAY ==
[2020-05-25 11:12] VITALS: BP 103/60; PULSE 103; RESP 16; TEMP 36.7; O2SAT 94; BMI 16.5
--- NOTE | 2020-05-25 11:30 | W.ED.GENADLT ---
HPI - General Adult General: Chief complaint: General Medical Stated complaint: PEG TUBE MALFUNCTION Time Seen by Provider: 05/25/20 11:18 Source: patient Mode of arrival: EMS Limitations: altered mental status History of Present Illness: HPI narrative: Sent from [facility] due to concern for stool leaking around newly placed PEG tube site. PH balance checked, and consistent with stool per staff. 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) use of systemic steroids Medication monitoring encounter Nontuberculous atypical mycobacterial disease Osteoporosis Pseudoaneurysm of carotid artery Rheumatoid arthritis with rheumatoid factor of multiple sites without organ or systems involvement Seropositive rheumatoid arthritis of multiple joints Severe protein-energy malnutrition Surgical History History of back surgery History of knee replacement left on 10/12/16 and right on 12-05-16 Hx of cataract surgery bilateral Hx of cholecystectomy Status post carotid surgery Family History Other Hypertension Denies family history of Rheumatoid arthritis Diabetes CAD (coronary artery disease) Systemic lupus erythematosus (SLE) in adult Cancer Social History Smoking and tobacco status: former smoker Alcohol intake: former Housing: Care Home Marital status: Current occupational status: retired History of recent travel: No Physical Exam Const: COMMON NORMALS: no acute distress, average body habitus and patient oriented x3 HENMT: COMMON NORMALS: normocephalic and atraumatic HEAD & SCALP: normocephalic and atraumatic Eye: COMMON NORMALS: Equal, round and reactive pupils present GENERAL EYE: appearance normal, both eyes and all related structures PUPIL: Yes Equal, round and reactive pupils present Neck/C-Spine: COMMON NORMALS: full ROM, no lymphadenopathy, supple and no JVD Lymph: LYMPHATIC: no lymphadenopathy noted Chest: COMMONS NORMALS: normal inspection of the chest and normal palpation of entire chest wall Resp: COMMON NORMALS: normal respiratory effort Cardio: COMMON NORMALS: no JVD, regular rate, regular rhythm, S1 normal heart sound present and S2 normal heart sound present RATE: regular rate RHYTHM: regular rhythm HEART SOUNDS: S1 normal heart sound present and S2 normal heart sound present GI: COMMON NORMALS: Normal to inspection, nondistended, normoactive bowel sounds present and Soft to palpation INSPECTION: Yes GI tube present (Bruising surrounding PEG site, new placement. No drainage noted.) AUSCULTATION: Yes normoactive bowel sounds PALPATION: Yes Soft to palpation : COMMON NORMALS: Yes no CVA tenderness BLADDER/KIDNEY EXAM: Yes no CVA tenderness Back/Pelvis: COMMON NORMALS: no CVA tenderness Extremity: COMMON NORMALS: normal to inspection Neuro: COMMON NORMALS: patient oriented x3 Course ED course: Patient sent from [facility], with a.m. dressing change of PEG site sponge containing drainage which was feared to be stool. Dr. Ferro at bedside agrees that he feels it is a bowel drainage not stool related. Due to new placement of tube will evaluate with KUB to rule out any injury to the colon. Consultations: Consultation #1: Dr. Ferro at bedside to evaluate PEG site placed on 05/23. Discussed concerns from [facility] regarding possibility of stool leakage surrounding PEG tube site. Discussed case with and was collectively decided to pursue a KUB with contrast for evaluation of leakage around PEG site. present at bedside. Time: 11:42 Time: 13:01 Consultation #3: Discussed results of KUB with Spouse, and patient. He may return to the SNF with close follow up with . No leaking noted with use of contrast and kub. Vital Signs: Vital signs: Vital Signs Temperature 98.1 F 05/25/20 11:12 Pulse Rate 103 H 05/25/20 11:12 Respiratory Rate 16 05/25/20 11:12 Blood Pressure 103/60 05/25/20 11:12 Pulse Oximetry 94 05/25/20 11:12 Discharge Plan Discharge Patient Disposition: Home Clinical Impression: PEG tube malfunction Condition: Stable Prescriptions: No Action Senna-S 8.6-50 mg Tablet 2 tab PO BEDTIME RF: 0 magnesium oxide 400 mg (241.3 mg magnesium) Tablet 400 mg peg-tube BID Qty: 30 RF: 0 ropinirole 0.25 mg Tablet 0.25 mg peg-tube BEDTIME Qty: 15 RF: 0 pantoprazole 40 mg Tablet,Delayed Release (Dr/Ec) 40 mg peg-tube DAILY Qty: 15 RF: 0 Phospha 250 Neutral 250 mg Tablet 250 mg peg-tube BID Qty: 30 RF: 0 prednisone 10 mg tablet 10 mg feeding tube DAILY Qty: 0 RF: 0 atorvastatin 10 mg tablet 10 mg feeding tube BEDTIME Qty: 0 RF: 0 Milk of Magnesia 400 mg/5 mL Suspension 15 ml feeding tube Q4H PRN (Reason: Constipation) Qty: 0 RF: 0 ethambutol 400 mg tablet 800 mg feeding tube QAM Qty: 0 RF: 0 gabapentin 300 mg capsule 300 mg feeding tube BID 30 Days Qty: 60 RF: 0 Mintox 200-200-20 mg/5 mL Suspension 30 ml feeding tube Q4H PRN (Reason: Indigestion) Qty: 0 RF: 0 Miralax 17 gram/dose powder 17 gm feeding tube DAILY PRN (Reason: Constipation) Qty: 0 RF: 0 hydromorphone 4 mg Tablet 2 mg feeding tube BID Qty: 10 RF: 0 Discharge Orders: Discharge Order (Routine); Ordered 05/25/20 Ordered By: Laura Osorio Referrals: Meng Wu MD [Primary Care Provider] - Calvin Ferro MD [Physician] - 1 week Discharge Diet: Usual diet Discharge Activity: Resume usual activity Coding Level of Care Code ED Bottling Equipment Sales Representative for Chg Fwd Exam Comprehensive
--- NOTE | 2020-05-25 11:37 | XRR_ITS ---
PROCEDURE INFORMATION: Exam: XR Abdomen, 1 View Exam date and time: 05/25/2020 11:38 AM Age: 79 years old Clinical indication: Device placement; Gi device; Peg tube; Prior surgery; Additional info: Gastrostudy peg TECHNIQUE: Imaging protocol: XR of the abdomen. Views: Frontal supine view of the abdomen. 1 View. COMPARISON: CT abdomen pelvis wo con [id number] 05/15/2020 3:07 PM FINDINGS: Peg tube noted. Contrast seen within the gastric lumen and 1st portion of the duodenum. No obvious leakage. Visualized bowel normal in caliber. Right upper quadrant surgical clips. Vertebroplasty cement noted within the lumbar spine at multiple levels. XR/XR KUB portable [id number] IMPRESSION: Intragastric position of PEG tube.
--- NOTE | 2020-05-25 12:15 | PC.NURSE ---
PEG tube noted, recently placed. Bruising noted
--- NOTE | 2020-05-25 12:17 | PC.NURSE ---
Dr. Ferro at bedside assessing patient.
[2020-05-25 13:48] VITALS: BP 106/74; PULSE 108; RESP 18; O2SAT 98
== END 2020-05-25 17:15 | disposition home or self-care (01) ==
PROVIDERS: Emergency Provider Nurse Practitioner Family; PCP Internal Medicine
DX: K94.20 Gastrostomy complication, unspecified (principal); Z87.891 Personal history of nicotine dependence
CPT/HCPCS: 12345; 74018; 99281; 99283

== ENCOUNTER 2020-06-16 03:20 | Emergency (ER) | payer MEDICARE, OTHER, SELFPAY ==
[2020-06-16] VITALS (9 sets, daily range): BP systolic 86–143; BP diastolic 51–82; PULSE 90–104; RESP 18–21; TEMP 37.1; O2SAT 94–100; BMI 16.1
--- NOTE | 2020-06-16 03:29 | CTR_ITS ---
PROCEDURE INFORMATION: Exam: CT Lumbar Spine Without Contrast Exam date and time: 06/16/2020 3:31 AM Age: 79 years old Clinical indication: Injury or trauma; Fall; Blunt trauma (contusions or hematomas); Additional info: Fall/pain TECHNIQUE: Imaging protocol: Computed tomography images of the lumbar spine without contrast. Radiation optimization: All CT scans at this facility use at least one of these dose optimization techniques: automated exposure control; mA and/or kV adjustment per patient size (includes targeted exams where dose is matched to clinical indication); or iterative reconstruction. COMPARISON: No relevant prior studies available. RADIATION DOSE METRICS: Total DLP (mGy-cm): 2290.6 FINDINGS: Vertebrae: Diffuse osteopenia of the bones is present. Compression fractures are seen at L4, L3, L2 and L1 with vertebroplasty. No subluxation or retropulsed fragment is identified. Fracture of T10 vertebral body is also seen. Soft tissues: Bilateral nonobstructing intrarenal stones are seen. Abdominal aortic aneurysm is seen measuring 4.2 by 5 cm. Diverticulosis of the sigmoid colon is present. Chronic infiltrates are seen in both lung bases. CT/CT lumbar spine wo con* [id number] IMPRESSION: Multiple chronic compression fractures are seen with vertebroplasty changes as described. No subluxation or retropulsed fragment is seen. Diffuse osteopenia of the bones is present. An aortic aneurysm is present. Bilateral nonobstructing intrarenal stones are seen. diverticulosis of the sigmoid colon is present. Chronic infiltrates are seen in both lung bases. Radiation Dose CTDIVOL = (mGy): DLP = 2290.6 (mGy-cm)
--- NOTE | 2020-06-16 03:29 | XRR_ITS ---
NOTE: Report was unsigned for reason: Order was edited. Original Signature date and time was: 06/16/20 @ 0422 PROCEDURE INFORMATION: Exam: XR Bilateral Hips with Pelvis when Performed Exam date and time: 06/16/2020 3:33 AM Age: 79 years old Clinical indication: Injury or trauma; Fall; Blunt trauma (contusions or hematomas); Bilateral; Hip; Additional info: Fall/pain TECHNIQUE: Imaging protocol: XR bilateral hips with pelvis when performed. Views: 2 views. COMPARISON: CT abdomen pelvis wo con [id number] 05/15/2020 3:07 PM FINDINGS: Bones/joints: Unremarkable. No acute fracture. Soft tissues: Unremarkable. MTDD XR/XR hip BI 2V wo/w pel [id number] IMPRESSION: No fracture or dislocation is seen.
--- NOTE | 2020-06-16 03:30 | CTR_ITS ---
PROCEDURE INFORMATION: Exam: CT Head Without Contrast Exam date and time: 06/16/2020 3:31 AM Age: 79 years old Clinical indication: Injury or trauma; Fall; Blunt trauma (contusions or hematomas); Without loss of consciousness; Additional info: Fall/injury TECHNIQUE: Imaging protocol: Computed tomography of the head without contrast. Radiation optimization: All CT scans at this facility use at least one of these dose optimization techniques: automated exposure control; mA and/or kV adjustment per patient size (includes targeted exams where dose is matched to clinical indication); or iterative reconstruction. COMPARISON: No relevant prior studies available. RADIATION DOSE METRICS: Total DLP (mGy-cm): 827 FINDINGS: Brain: Normal. No hemorrhage. Unremarkable white matter. No mass effect. Cerebral ventricles: The ventricles, cisterns and sulci are prominent. The. Bones/joints: Unremarkable. No acute fracture. Paranasal sinuses: Visualized sinuses are unremarkable. No fluid levels. Mastoid air cells: Visualized mastoid air cells are well aerated. Soft tissues: Unremarkable. CT/CT head wo con* [id number] IMPRESSION: No acute intracranial abnormality. Radiation Dose CTDIVOL = (mGy): DLP = 827 (mGy-cm)
--- NOTE | 2020-06-16 03:44 | ED_ITS ---
HPI - Fall General: Chief Complaint: Fall Stated Complaint: FALL/ HIP PAIN/ SHOULDER PAIN Time Seen by Provider: 06/16/20 03:27 Source: patient and EMS Mode of arrival: EMS Limitations: no limitations History of Present Illness: HPI Narrative: Mr. Lund is a nice 79-year-old male who comes in after he fell out of bed trying to get up. He lives in a long-term and is getting ongoing medical care there. Patient was try to get up out of bed when he lost his balance and fell. Patient is uncertain what he hit his head on but he does have a small laceration to the right parietal scalp. He said he landed on his buttock and back and his pain is all in his back. The long-term reported the patient had right hip pain EMS states they were told left hip pain by the long-term. Patient states he has no hip pain here and is able to move both of his legs in the bed without any pain or discomfort. Patient denies any neck pain, chest pain, extremity pain, abdominal pain, or upper back pain. Associated symptoms-after fall: Denies abdominal pain, chest pain, confusion, difficulty walking, headache(s), hematuria, lightheadedness, neck pain or vertigo Review of Systems Const: Denies: fever(s), chills, body aches, fatigue, malaise or diaphoresis Eyes: Denies: change in vision, blurry vision, photophobia, eye discomfort, eye discharge, eye redness or yellow eyes ENMT: Denies: throat pain, odynophagia, hoarseness, swelling of lips/tongue, ear or mastoid pain, ear discharge, change in hearing or nasal discharge Card: Denies: chest pain, palpitations, irregular heart rhythm, edema, lightheadedness, syncope, pre-syncope, dyspnea on exertion or orthopnea Resp: Denies: dyspnea, productive cough, non-productive cough, wheezing, hemoptysis or chest congestion GI: Denies: abdominal pain, nausea, vomiting, hematemesis, coffee ground emesis, heartburn, diarrhea, constipation, GI cramping, hematochezia or melena : Denies: flank pain, dysuria, urinary frequency, urinary urgency or hematuria Musc: Reports: back pain; Denies: neck pain, extremity pain, extremity swelling, joint pain, joint swelling, joint redness, joint warmth or joint stiffness Skin/Breast: Denies: rash, pruritus, erythema, skin pain or skin tenderness Neuro: Denies: headache(s), numbness in extremities, weakness in extremities, sensory changes, lack of coordination, difficulty walking, dizziness, vertigo, confusion, Slurred speech present or seizure-like activity Eben/Lymph: Denies: easy bruising, easy bleeding, petechiae, purpura or enlarged lymph nodes All/Imm: Denies: urticaria, throat swelling, tongue swelling, facial swelling or acute wheezing PFSH ED PFSH: Medical History Chronic adrenal insufficiency Degenerative lumbar spinal stenosis Elevated blood pressure reading High risk medication use Immunization counseling USP (current) use of systemic steroids Medication monitoring encounter Nontuberculous atypical mycobacterial disease Osteoporosis Pseudoaneurysm of carotid artery Rheumatoid arthritis with rheumatoid factor of multiple sites without organ or systems involvement Seropositive rheumatoid arthritis of multiple joints Severe protein-energy malnutrition Surgical History History of back surgery History of knee replacement left on 10/12/16 and right on 12-05-16 Hx of cataract surgery bilateral Hx of cholecystectomy Status post carotid surgery Family History Other Hypertension Denies family history of Rheumatoid arthritis Diabetes CAD (coronary artery disease) Systemic lupus erythematosus (SLE) in adult Cancer Social History Smoking and tobacco status: former smoker Alcohol intake: former Housing: [facility] Marital status: Current occupational status: retired History of recent travel: No Physical Exam Const: COMMON NORMALS: no acute distress, patient oriented x3, no limitations and alert GENERAL APPEARANCE: cooperative HENMT: COMMON NORMALS: normocephalic, external ears normal, EAC's normal and Normal external nose present HEAD & SCALP: normal to inspection, normocephalic and other (3 cm linear laceration to the right parietal scalp) FACE & SINUS: normal facial exam and face symmetric NOSE: Normal external nose present and Normal nares present EXTERNAL EAR: Yes external ears normal EXTERNAL AUDITORY CANAL: EAC's normal MOUTH: Normal oral and palatal mucosa present, lip normal and tongue normal Eye: COMMON NORMALS: Equal, round and reactive pupils present and conjunctivae normal GENERAL EYE: appearance normal, both eyes and all related structures ALIGNMENT: Yes alignment normal PERIORBITAL: periorbital findings normal EYELID: eyelids normal CONJUNCTIVA: Yes conjunctivae normal SCLERA: sclerae normal PUPIL: Yes Equal, round and reactive pupils present Neck/C-Spine: COMMON NORMALS: full ROM, no lymphadenopathy, supple, no meningeal signs and no JVD GENERAL: Yes normal visual inspection and Yes trachea midline Chest: COMMONS NORMALS: normal inspection of the chest and normal palpation of entire chest wall Resp: COMMON NORMALS: normal respiratory effort, No retractions, No use of accessory muscles and clear to auscultation bilaterally EFFORT & INSPECTION: Yes able to speak in complete sentences and Yes symmetric chest movement AUSCULTATION: clear to auscultation bilaterally, no crackles, no rales, no rhonchi and no wheezes Cardio: COMMON NORMALS: no JVD, regular rate, regular rhythm, S1 normal heart sound present and S2 normal heart sound present RATE: regular rate RHYTHM: regular rhythm HEART SOUNDS: S1 normal heart sound present, S2 normal heart sound present, no click, no gallops, no murmurs and no rubs GI: COMMON NORMALS: Soft to palpation and No hepatosplenomegaly present PALPATION: Yes Soft to palpation, No Tenderness to palpation present (GI), No Guarding due to palpation present (GI), No Rigid due to palpation, Yes No hepatosplenomegaly present, No Hernia present, No Palpable mass present and No Pulsatile mass present : COMMON NORMALS: Yes no CVA tenderness BLADDER/KIDNEY EXAM: Yes no CVA tenderness Back/Pelvis: COMMON NORMALS: no CVA tenderness, thoracic and lumbar spine normal to inspection, no thoracic nor lumbar tenderness and thoraco-lumbar ROM normal Extremity: COMMON NORMALS: normal to inspection, full ROM, capillary refill normal, no joint enlargement, no clubbing, cyanosis or edema and no calf tenderness Neuro: COMMON NORMALS: patient oriented x3, CN's II-XII intact bilaterally, moves all extremities, no focal motor deficits and no sensory deficits noted SENSORIUM/ORIENTATION: Yes alert MENINGEAL SIGNS: Yes no meningeal signs SPEECH: speech normal Psych: COMMON NORMALS: mental status grossly normal, Normal thought process present, cooperative, normal affect, speech normal and activity/motor behavior normal SPEECH: Yes normal speech THOUGHT PROCESS: Normal thought process present Skin: COMMON NORMALS: no rashes or lesions noted, turgor normal, no jaundice, no petechiae and no mottling GENERAL SKIN EXAM: no rashes or lesions noted and turgor normal Procedures Laceration Laceration 1: Site: scalp Side (If applicable): right Size (cm): 4 Description: linear Depth: simple, single layer Local Anesthetic: lidocaine 1% Amount of anesthesia used (mL): 4 Pre-repair: wound explored, irrigated extensively and deep structures intact Technique: other (7 interrupted nj placed in linear laceration with good wound closure) Course Vital Signs: Vital signs: Vital Signs Temperature 98.7 F 06/16/20 03:41 Pulse Rate 102 H 06/16/20 04:44 Respiratory Rate 18 06/16/20 04:44 Blood Pressure 143/82 06/16/20 04:44 Pulse Oximetry 100 06/16/20 04:44 MDM - Fall MDM Narrative: Medical decision making narrative: Mr. Lund is a nice 79-year-old male who fell getting up out of bed. There is no evidence of fractures of his hips or pelvis. Lumbar spine is stable without any acute fractures. An incidentally found AAA was noticed and imaged by me but no evidence of rupture. This has been seen previously and is unchanged in size. This laceration was repaired with nj. He has a large skin tear to his right shoulder which we have dressed here. I have discussed all the findings with the patient's and she is aware she will have him follow-up with his regular doctor at the long-term. Imaging Data^: CT Head: Radiologist's impression: [place] [address] CT Scan Report Signed Patient: Lg Lund #: [id number] : 1940Acct#:[id number] Age/Sex: 79 / MADM Date: 06/16/20 Loc: ERRoom/Bed: Attending Dr: Ordering Provider/Ordering MD: Zoraida Best DO Date of Service: 06/16/20 Procedure(s): CT head wo con* [id number] Accession Number(s): [id number] Report Number: [id number] PROCEDURE INFORMATION: Exam: CT Head Without Contrast Exam date and time: 06/16/2020 3:31 AM Age: 79 years old Clinical indication: Injury or trauma; Fall; Blunt trauma (contusions or hematomas); Without loss of consciousness; Additional info: Fall/injury TECHNIQUE: Imaging protocol: Computed tomography of the head without contrast. Radiation optimization: All CT scans at this facility use at least one of these dose optimization techniques: automated exposure control; mA and/or kV adjustment per patient size (includes targeted exams where dose is matched to clinical indication); or iterative reconstruction. COMPARISON: No relevant prior studies available. RADIATION DOSE METRICS: Total DLP (mGy-cm): 827 FINDINGS: Brain: Normal. No hemorrhage. Unremarkable white matter. No mass effect. Cerebral ventricles: The ventricles, cisterns and sulci are prominent. The. Bones/joints: Unremarkable. No acute fracture. Paranasal sinuses: Visualized sinuses are unremarkable. No fluid levels. Mastoid air cells: Visualized mastoid air cells are well aerated. Soft tissues: Unremarkable. CT/CT head wo con* [id number] IMPRESSION: No acute intracranial abnormality. Radiation Dose CTDIVOL = (mGy): DLP = 827 (mGy-cm) Dictated By:Vignesh Damian Signed By:Jami Damianigned Date/Time:06/16/20444 DD/ 3 CT Lumbar Spine: Radiologist's impression: [address] [address] [address] Scan Report Signed Patient: Lg Lund #: [id number] : 1940Acct#:[id number] Age/Sex: 79 / MADM Date: 06/16/20 Loc: ERRoom/Bed: Attending Dr: Ordering Provider/Ordering MD: Zoraida Best DO Date of Service: 06/16/20 Procedure(s): CT lumbar spine wo con* [id number] Accession Number(s): [id number] Report Number: [id number] PROCEDURE INFORMATION: Exam: CT Lumbar Spine Without Contrast Exam date and time: 06/16/2020 3:31 AM Age: 79 years old Clinical indication: Injury or trauma; Fall; Blunt trauma (contusions or hematomas); Additional info: Fall/pain TECHNIQUE: Imaging protocol: Computed tomography images of the lumbar spine without contrast. Radiation optimization: All CT scans at this facility use at least one of these dose optimization techniques: automated exposure control; mA and/or kV adjustment per patient size (includes targeted exams where dose is matched to clinical indication); or iterative reconstruction. COMPARISON: No relevant prior studies available. RADIATION DOSE METRICS: Total DLP (mGy-cm): 2290.6 FINDINGS: Vertebrae: Diffuse osteopenia of the bones is present. Compression fractures are seen at L4, L3, L2 and L1 with vertebroplasty. No subluxation or retropulsed fragment is identified. Fracture of T10 vertebral body is also seen. Soft tissues: Bilateral nonobstructing intrarenal stones are seen. Abdominal aortic aneurysm is seen measuring 4.2 by 5 cm. Diverticulosis of the sigmoid colon is present. Chronic infiltrates are seen in both lung bases. CT/CT lumbar spine wo con* [id number] IMPRESSION: Multiple chronic compression fractures are seen with vertebroplasty changes as described. No subluxation or retropulsed fragment is seen. Diffuse osteopenia of the bones is present. An aortic aneurysm is present. Bilateral nonobstructing intrarenal stones are seen. diverticulosis of the sigmoid colon is present. Chronic infiltrates are seen in both lung bases. Radiation Dose CTDIVOL = (mGy): DLP = 2290.6 (mGy-cm) Dictated By:Vignesh Damian Signed By:Jami Damianigned Date/Time:06/16/20450 DD/ 9 Discharge Plan Discharge Patient Disposition: Home Clinical Impression: Laceration, Skin tear, Multiple contusions Fall Qualifiers: Encounter type: initial encounter Qualified Code(s): W19.XXXA - Unspecified fal l, initial encounter Condition: Stable Prescriptions: No Action sennosides-docusate sodium [Senna-S] 8.6-50 mg Tablet 2 tab PO BEDTIME RF: 0 magnesium oxide 400 mg (241.3 mg magnesium) Tablet 400 mg peg-tube BID Qty: 30 RF: 0 ropinirole 0.25 mg Tablet 0.25 mg peg-tube BEDTIME Qty: 15 RF: 0 pantoprazole 40 mg Tablet,Delayed Release (Dr/Ec) 40 mg peg-tube DAILY Qty: 15 RF: 0 Phospha 250 Neutral 250 mg Tablet 250 mg peg-tube BID Qty: 30 RF: 0 prednisone 10 mg tablet 10 mg feeding tube DAILY Qty: 0 RF: 0 atorvastatin 10 mg tablet 10 mg feeding tube BEDTIME Qty: 0 RF: 0 magnesium hydroxide [Milk of Magnesia] 400 mg/5 mL Suspension 15 ml feeding tube Q4H PRN (Reason: Constipation) Qty: 0 RF: 0 ethambutol 400 mg tablet 800 mg feeding tube QAM Qty: 0 RF: 0 gabapentin 300 mg capsule 300 mg feeding tube BID 30 Days Qty: 60 RF: 0 alum-mag hydroxide-simeth [Mintox] 200-200-20 mg/5 mL Suspension 30 ml feeding tube Q4H PRN (Reason: Indigestion) Qty: 0 RF: 0 polyethylene glycol 3350 [Miralax] 17 gram/dose powder 17 gm feeding tube DAILY PRN (Reason: Constipation) Qty: 0 RF: 0 Discharge Orders: Discharge Order (Routine); Ordered 06/16/20 Ordered By: Zoraida Best Referrals: Meng Wu MD [Primary Care Provider] - 7-10 days Discharge Diet: Usual diet Discharge Activity: Increase activity as tolerated Patient Instructions: Laceration (ED), Skin Tear (ED) Activity Restrictions/Additional Instructions: Please return to the ER immediately for any of the signs or symptoms listed on your discharge instruction sheets, worsening/changing of your symptoms, you are not getting better as quickly as expected, or for ANY other cause or concerns. Your nj will need to come out in 7 to 10 days. Return to the ER for swelling, drainage from your wound, or for any other cause for concern. 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
--- NOTE | 2020-06-16 04:44 | CTR_ITS ---
PROCEDURE INFORMATION: Exam: CT Abdomen And Pelvis Without Contrast Exam date and time: 06/16/2020 4:45 AM Age: 79 years old Clinical indication: Abdominal pain; Generalized TECHNIQUE: Imaging protocol: Computed tomography of the abdomen and pelvis without contrast. Radiation optimization: All CT scans at this facility use at least one of these dose optimization techniques: automated exposure control; mA and/or kV adjustment per patient size (includes targeted exams where dose is matched to clinical indication); or iterative reconstruction. COMPARISON: CT abdomen pelvis con [id number] 05/15/2020 3:07 PM RADIATION DOSE METRICS: Total DLP (mGy-cm): 516.6 FINDINGS: Liver: Normal. No mass. Gallbladder and bile ducts: The gallbladder is surgically absent. No ductal dilation. Pancreas: Normal. No ductal dilation. Spleen: Normal. No splenomegaly. Adrenals: Normal. No mass. Kidneys and ureters: Bilateral tiny nonobstructing intrarenal stones are seen, unchanged. No hydronephrosis. Stomach and bowel: A gastrostomy tube is in place. No obstruction. Diverticulosis of the sigmoid colon is present without diverticulitis. Appendix: No evidence of appendicitis. Unremarkable appendix Intraperitoneal space: Unremarkable. No free air. No significant fluid collection. Vasculature: A 4.6 x 4.2 cm distal abdominal aortic aneurysm is seen, unchanged. Lymph nodes: Unremarkable. No enlarged lymph nodes. Urinary bladder: Unremarkable as visualized. Reproductive: The prostate is enlarged projecting into the bladder base. Bones/joints: Multilevel chronic compression fractures are seen with vertebroplasty changes. Soft tissues: Unremarkable. CT/CT abdomen pelvis con [id number] IMPRESSION: 1. No acute findings. 2. The gallbladder is surgically absent. 3. Tiny nonobstructing intrarenal stones are present. 4. Diverticulosis of the sigmoid colon is present without diverticulitis. 5. Stable distal abdominal aortic aneurysm is seen. 6. Enlarged prostate projecting to the bladder base is seen. 7. A gastrostomy tube is in good position. 8. Multilevel compression fracture with vertebroplasty changes are seen. Radiation Dose CTDIVOL = (mGy): DLP = 516.6 (mGy-cm)
--- NOTE | 2020-06-16 04:45 | PC.NURSE ---
CT scans completed at bedside upon return to ED
[2020-06-16] MEDS: ondansetron 4 MG Tablet PO (05:22)
[2020-06-16] MEDS: bacitracin ointment Pkt 2 EACH TOPICAL (05:23)
[2020-06-16] MEDS: HYDROcodone-acetaminophen 5-325 mg Tablet 1 TAB PO (05:23)
--- NOTE | 2020-06-16 05:43 | PC.NURSE ---
skin tear rt shoulder cleaned bacitracin telfa --skin tear rt forearm cleaned bacitracin telfa coban
--- NOTE | 2020-06-16 05:49 | PC.NURSE ---
Call to [facility] to arrange ride home- report to Marguerite
--- NOTE | 2020-06-16 06:21 | PC.NURSE ---
[facility] Transport to take patient back to [facility]
[2020-06-16] MEDS: lidocaine 1% INJ 20 mL SUBCUT (06:39)
--- NOTE | 2020-06-16 06:42 | PC.NURSE ---
Received report assumed care, no acute changes noted. at bedside.
== END 2020-06-16 08:43 | disposition home or self-care (01) ==
PROVIDERS: Emergency Provider Emergency Medicine; PCP Internal Medicine
DX: S01.01XA Laceration without foreign body of scalp, initial encounter (principal); Z87.891 Personal history of nicotine dependence; W06.XXXA Fall from bed, initial encounter
CPT/HCPCS: 12013; 12345; 70450; 72131; 73521; 73523; 74176; 99281; 99283; Q0162